=== PATIENT | male | born 1940 | race Caucasian/White ===

== ENCOUNTER → 2020-02-07 13:22 | Outpatient (BNVA) | payer MEDICARE, SELFPAY | PROVIDERS: PCP Internal Medicine; Referring Provider Internal Medicine; Visit Provider Hospitalist | DX: J92.0 Pleural plaque with presence of asbestos (principal); R91.8 Other nonspecific abnormal finding of lung field; G47.33 Obstructive sleep apnea (adult) (pediatric) | CPT/HCPCS: 99214 ==

== ENCOUNTER 2020-02-09 12:39 | Outpatient (REF) | payer MEDICARE, SELFPAY | END 2020-02-09 12:40 | disposition home or self-care (01) | LOC: HO.LAB 12:39 | PROVIDERS: Visit Provider Internal Medicine | DX: Z20.828 Contact with and (suspected) exposure to other viral communicable diseases (principal) | CPT/HCPCS: 87635 ==

== ENCOUNTER 2020-04-18 08:21 | Outpatient (REF) | payer MEDICARE, SELFPAY ==
--- NOTE | 2020-04-18 08:24 | CT_ITS ---
EXAMINATION: CT CHEST WITHOUT CONTRAST CLINICAL INFORMATION: Followup pulmonary nodules. COMPARISON: CT chest 04/20/2019 TECHNIQUE: Multidetector volumetric CT imaging of the chest was done. Axial MIP volume rendering provided. Sagittal and coronal reformatted images were obtained. This CT examination was performed using dose optimization techniques as appropriate, variously including the following: *Automated exposure control *Adjustment of mA and/or kV according to patient size (this includes techniques or standardized protocols for targeted exams where dose is matched to indication/reason for exam; i.e. extremities or head) *Use of iterative reconstruction technique DLP: 159 mGy-cm FINDINGS: [employer] WORKER: The lungs are well expanded. LUNGS: There are multiple bilateral pulmonary nodules most prominent in the right upper lobe. The largest nodule in the right upper lobe measures 2.5 mm on axial image 76/9, pleural-based 3 mm nodule right upper lobe posteriorly on axial image 134/9, 5 mm nodule right middle lobe adjacent to the major fissure likely lymph node on axial image 326/9. There are other 2 mm nodules that are stable. There is a dense right basilar band-like atelectasis. MEDIASTINUM: The thyroid lobes are symmetrical. The central trachea and the bronchi are widely patent. The heart size is normal. The ascending aorta measures 4.2 x 4.4 cm. There are coronary artery calcifications. There is no pericardial effusion seen. Small shotty lymph nodes are seen in the mediastinum with the largest short axis lymph node measuring 8 mm. PLEURA: There is a right diaphragmatic pleural calcification. In addition, there is mild pleural thickening left upper lung. AXILLA: No lymphadenopathy. UPPER ABDOMEN: The visualized liver, spleen, pancreas, and adrenal glands are unremarkable. There is diffuse mural thickening involving the GE junction. OSSEOUS STRUCTURES: There is a bony abnormality involving the right 7th anterolateral rib, question old fracture. There is moderate ventral spondylosis throughout dorsal spine. CT/CT chest wo con IMPRESSION: Stable multiple pulmonary nodules. Stable calcified and noncalcified pleural plaques. Borderline aneurysmal ascending aorta with measurements shown above. Coronary artery calcifications are present.
== END 2020-04-18 08:22 | disposition home or self-care (01) ==
LOC: HO.CT 08:21
PROVIDERS: Visit Provider Hospitalist
DX: R91.8 Other nonspecific abnormal finding of lung field (principal)
CPT/HCPCS: 71250

== ENCOUNTER → 2020-06-08 13:18 | Outpatient (BNVA) | payer MEDICARE, SELFPAY | PROVIDERS: PCP Internal Medicine; Visit Provider Hospitalist | DX: G47.33 Obstructive sleep apnea (adult) (pediatric) (principal); R91.8 Other nonspecific abnormal finding of lung field; J92.0 Pleural plaque with presence of asbestos | CPT/HCPCS: 99212 ==

== ENCOUNTER → 2020-07-04 13:01 | Outpatient (BNVA) | payer MEDICARE, SELFPAY | PROVIDERS: PCP Internal Medicine; Visit Provider Surgery Vascular Surgery | DX: I73.9 Peripheral vascular disease, unspecified (principal) | CPT/HCPCS: 99212 ==

== ENCOUNTER 2021-01-04 08:47 | Outpatient (REF) | payer MEDICARE, SELFPAY | END 2021-01-04 08:48 | disposition home or self-care (01) | LOC: HO.LAB 08:47 | PROVIDERS: PCP Internal Medicine; Visit Provider Internal Medicine | DX: Z20.822 Contact with and (suspected) exposure to COVID-19 (principal) | CPT/HCPCS: C9803; U0003; U0005 ==

== ENCOUNTER 2021-01-11 08:15 | Outpatient (REF) | payer MEDICARE, SELFPAY | END 2021-01-11 08:16 | disposition home or self-care (01) | LOC: HO.LAB 08:15 | PROVIDERS: PCP Internal Medicine; Visit Provider Internal Medicine | DX: Z20.822 Contact with and (suspected) exposure to COVID-19 (principal) | CPT/HCPCS: C9803; U0003; U0005 ==

== ENCOUNTER 2021-01-16 10:17 | Outpatient (REF) | payer MEDICARE, SELFPAY | END 2021-01-16 10:18 | disposition home or self-care (01) | LOC: HO.LAB 10:17 | PROVIDERS: PCP Internal Medicine; Visit Provider Internal Medicine | DX: Z20.822 Contact with and (suspected) exposure to COVID-19 (principal) | CPT/HCPCS: C9803; U0003; U0005 ==

== ENCOUNTER 2021-01-26 08:18 | Outpatient (REF) | payer MEDICARE, SELFPAY ==
[2021-01-26 08:39] LABS: COVID-19 Test Positive (Negative)
== END 2021-01-26 08:19 | disposition home or self-care (01) ==
LOC: HO.LAB 08:18
PROVIDERS: PCP Internal Medicine; Visit Provider Internal Medicine
DX: Z20.822 Contact with and (suspected) exposure to COVID-19 (principal)
CPT/HCPCS: 36415; 87635; C9803

== ENCOUNTER 2021-02-26 08:20 | Outpatient (REF) | payer MEDICARE, SELFPAY ==
[2021-02-26 08:44] LABS: COVID-19 Test Negative (Negative)
== END 2021-02-26 08:21 | disposition home or self-care (01) ==
LOC: HO.LAB 08:20
PROVIDERS: PCP Internal Medicine; Visit Provider Internal Medicine
DX: Z20.822 Contact with and (suspected) exposure to COVID-19 (principal)
CPT/HCPCS: 36415; 87635; C9803

== ENCOUNTER → 2021-04-27 13:53 | Outpatient (BNVA) | payer MEDICARE, SELFPAY | PROVIDERS: PCP Internal Medicine; Visit Provider Hospitalist | DX: G47.33 Obstructive sleep apnea (adult) (pediatric) (principal); R91.8 Other nonspecific abnormal finding of lung field; J92.0 Pleural plaque with presence of asbestos; I71.2 Thoracic aortic aneurysm, without rupture | CPT/HCPCS: 99212 ==

== ENCOUNTER 2021-07-17 10:29 | Outpatient (REF) | payer MEDICARE, SELFPAY ==
--- NOTE | ~2021-07-17 | US_ITS ---
EXAMINATION: US NONINVASIVE ASSESSMENT OF THE ARTERIES OF BOTH LOWER EXTREMITIES WITH PVR EXAM AND BILATERAL LOWER EXTREMITY DUPLEX CLINICAL INFORMATION: Peripheral vascular disease. Left lower extremity bypass graft. TECHNIQUE: Ankle pulse volume recordings, ankle pressure measurements and ankle brachial indices were obtained of the lower extremity arterial system bilaterally. Additionally, duplex Doppler techniques were used with wave form analysis and measurement of velocities in the common femoral, profunda femoral, superficial femoral, popliteal and tibial arteries. The study was performed only at rest. COMPARISON: 02/09/2019. FINDINGS: ANKLE-BRACHIAL INDEX: Right: 1.18 Left: 1.18 PVR WAVEFORM: Right: normal. Left: normal. DIRECT DUPLEX DOPPLER FINDINGS: RIGHT LEG: Common femoral artery: 108 cm/s, diastolic flow reversal: Yes. Profunda femoris artery: 53.4 cm/s, diastolic flow reversal: Yes. Superficial femoral artery (proximal): 84.1 cm/s, diastolic flow reversal: Yes. Superficial femoral artery (mid): 70.4 cm/s, diastolic flow reversal: Yes. Superficial femoral artery (distal): 85.0 cm/s, diastolic flow reversal: Yes. Popliteal artery: 52.8 cm/s, diastolic flow reversal: Yes. Posterior tibial artery: 61.0 cm/s, diastolic flow reversal: Yes. Peroneal artery: 54.5 cm/s, diastolic flow reversal: Yes. LEFT LEG: Common femoral artery: 104 cm/s, diastolic flow reversal: Yes. Profunda femoris artery: 53.4 cm/s, diastolic flow reversal: Yes. Superficial femoral artery (proximal): 62.7 cm/s, diastolic flow reversal: Yes. Superficial femoral artery (mid): Focally occluded. Bypass: Inflow artery: 45.1 cm/s, multiphasic flow Proximal anastomosis: 96.6 cm/s, multiphasic flow Proximal graft: 151 cm/s, multiphasic flow Mid graft: 116 cm/s, multiphasic flow Distal graft: 154 cm/s, multiphasic flow Distal anastomosis: 123 cm/s, multiphasic flow Outflow (posterior tibial) artery: 90.4 cm/s, multiphasic flow Popliteal artery: Occluded. Posterior tibial artery: 75 cm/s, diastolic flow reversal: Yes. Peroneal artery: 90.4 cm/s, diastolic flow reversal: Yes. US/US arterial duplex LE IMPRESSION: Right leg: COURTNEY 1.18. No hemodynamically significant arterial disease. Left leg: COURTNEY 1.18. Left lower extremity duplex reveals a patent left femorotibial bypass graft. No hemodynamically significant lesions identified. COURTNEY Reference: - >0.97-1.25 = normal - no significant arterial disease. - 0.75-0.96 = mild peripheral arterial disease. - 0.5-0.74 = moderate peripheral arterial disease. - <0.50 = severe peripheral arterial disease.
== END 2021-07-17 10:30 | disposition home or self-care (01) ==
LOC: HO.US 10:29
PROVIDERS: PCP Internal Medicine; Visit Provider Surgery Vascular Surgery
DX: I73.9 Peripheral vascular disease, unspecified (principal)
CPT/HCPCS: 93923; 93925

== ENCOUNTER → 2021-07-24 14:51 | Outpatient (BNVA) | payer MEDICARE, SELFPAY | PROVIDERS: PCP Internal Medicine; Visit Provider Surgery Vascular Surgery | DX: I73.9 Peripheral vascular disease, unspecified (principal) | CPT/HCPCS: 99212 ==

== ENCOUNTER → 2022-05-01 09:40 | Outpatient (BNVA) | payer MEDICARE, SELFPAY | PROVIDERS: PCP Internal Medicine; Visit Provider Hospitalist | DX: R91.8 Other nonspecific abnormal finding of lung field (principal); J92.0 Pleural plaque with presence of asbestos; I71.21 Aneurysm of the ascending aorta, without rupture; G47.33 Obstructive sleep apnea (adult) (pediatric) | CPT/HCPCS: 99212 ==

== ENCOUNTER 2022-06-07 10:04 | Outpatient (REF) | payer MEDICARE, SELFPAY | END 2022-06-07 10:05 | disposition home or self-care (01) | LOC: HO.SH 10:04 | PROVIDERS: Visit Provider Internal Medicine | DX: Z01.118 Encounter for examination of ears and hearing with other abnormal findings (principal); H90.3 Sensorineural hearing loss, bilateral | CPT/HCPCS: 92557 ==

== ENCOUNTER 2022-07-25 13:50 | Outpatient (REF) | payer MEDICARE, SELFPAY ==
--- NOTE | ~2022-07-25 | US_ITS ---
EXAMINATION: US NONINVASIVE ASSESSMENT OF THE ARTERIES OF BOTH LOWER EXTREMITIES INCLUDING PVR EXAM AND BILATERAL LOWER EXTREMITY DUPLEX. CLINICAL INFORMATION: Peripheral vascular disease COMPARISON: ABIs/duplex 07/17/2021 TECHNIQUE: Ankle pulse volume recordings, ankle pressure measurements and ankle brachial indices were obtained of the lower extremity arterial system bilaterally in addition to duplex Doppler techniques with wave form analysis and measurement of velocities in the common femoral, profunda femoral, superficial femoral, popliteal, tibial and peroneal arteries. The study was performed only at rest. FINDINGS: RIGHT LE. THE RIGHT ANKLE-BRACHIAL INDEX IS: 1.27 >0.97-1.25 = normal - no significant arterial disease 0.75-0.96 = mild peripheral arterial disease 0.5-0.74 = moderate peripheral arterial disease <0.50 = severe peripheral arterial disease <0.30 = critical arterial disease 2. SEGMENTAL PRESSURES (mmHg): Ankle: PT 166, DP 162 3. PVR WAVEFORMS: Ankle: Normal 4. DIRECT DUPLEX: Common femoral artery: 105 cm/s, Multiphasic Profunda femoris artery: 76 cm/s, Multiphasic Superficial femoral artery (proximal): 82 cm/s, Multiphasic Superficial femoral artery (mid): 72 cm/s, Multiphasic Superficial femoral artery (distal): 64 cm/s, Multiphasic Proximal Popliteal artery: 45 cm/s, Multiphasic Mid posterior tibial artery: 124 cm/s, Multiphasic LEFT LE. THE LEFT ANKLE-BRACHIAL INDEX IS: 1.19 >0.97-1.25 = normal - no significant arterial disease 0.75-0.96 = mild peripheral arterial disease 0.5-0.74 = moderate peripheral arterial disease <0.50 = severe peripheral arterial disease <0.30 = critical arterial disease 2. SEGMENTAL PRESSURES: Ankle: PT 156, DP 148 3. PVR WAVEFORMS: Ankle: Normal 4. DIRECT DUPLEX: Common femoral artery: 95 cm/s, biphasic Profunda femoris artery: 65 cm/s, biphasic Superficial femoral artery (proximal): 46 cm/s, biphasic Superficial femoral artery (mid): 88 cm/s, biphasic Distal SFA to posterior tibial bypass graft: Patent Mid posterior tibial artery: 76 cm/s, biphasic US/US arterial duplex LE BI IMPRESSION: Right leg COURTNEY 1.27. No hemodynamically significant stenosis. Left leg COURTNEY 1.19: No hemodynamically significant stenosis. Left femorotibial bypass graft is patent without hemodynamically significant stenosis.
--- NOTE | ~2022-07-25 | US_ITS ---
EXAMINATION: US NONINVASIVE ASSESSMENT OF THE ARTERIES OF BOTH LOWER EXTREMITIES INCLUDING PVR EXAM AND BILATERAL LOWER EXTREMITY DUPLEX. CLINICAL INFORMATION: Peripheral vascular disease COMPARISON: ABIs/duplex 07/17/2021 TECHNIQUE: Ankle pulse volume recordings, ankle pressure measurements and ankle brachial indices were obtained of the lower extremity arterial system bilaterally in addition to duplex Doppler techniques with wave form analysis and measurement of velocities in the common femoral, profunda femoral, superficial femoral, popliteal, tibial and peroneal arteries. The study was performed only at rest. FINDINGS: RIGHT LE. THE RIGHT ANKLE-BRACHIAL INDEX IS: 1.27 >0.97-1.25 = normal - no significant arterial disease 0.75-0.96 = mild peripheral arterial disease 0.5-0.74 = moderate peripheral arterial disease <0.50 = severe peripheral arterial disease <0.30 = critical arterial disease 2. SEGMENTAL PRESSURES (mmHg): Ankle: PT 166, DP 162 3. PVR WAVEFORMS: Ankle: Normal 4. DIRECT DUPLEX: Common femoral artery: 105 cm/s, Multiphasic Profunda femoris artery: 76 cm/s, Multiphasic Superficial femoral artery (proximal): 82 cm/s, Multiphasic Superficial femoral artery (mid): 72 cm/s, Multiphasic Superficial femoral artery (distal): 64 cm/s, Multiphasic Proximal Popliteal artery: 45 cm/s, Multiphasic Mid posterior tibial artery: 124 cm/s, Multiphasic LEFT LE. THE LEFT ANKLE-BRACHIAL INDEX IS: 1.19 >0.97-1.25 = normal - no significant arterial disease 0.75-0.96 = mild peripheral arterial disease 0.5-0.74 = moderate peripheral arterial disease <0.50 = severe peripheral arterial disease <0.30 = critical arterial disease 2. SEGMENTAL PRESSURES: Ankle: PT 156, DP 148 3. PVR WAVEFORMS: Ankle: Normal 4. DIRECT DUPLEX: Common femoral artery: 95 cm/s, biphasic Profunda femoris artery: 65 cm/s, biphasic Superficial femoral artery (proximal): 46 cm/s, biphasic Superficial femoral artery (mid): 88 cm/s, biphasic Distal SFA to posterior tibial bypass graft: Patent Mid posterior tibial artery: 76 cm/s, biphasic US/US COURTNEY complete IMPRESSION: Right leg COURTNEY 1.27. No hemodynamically significant stenosis. Left leg COURTNEY 1.19: No hemodynamically significant stenosis. Left femorotibial bypass graft is patent without hemodynamically significant stenosis.
== END 2022-07-25 13:51 | disposition home or self-care (01) ==
LOC: HO.US 13:50
PROVIDERS: PCP Internal Medicine; Visit Provider Surgery Vascular Surgery
DX: I70.213 Atherosclerosis of native arteries of extremities with intermittent claudication, bilateral legs (principal)
CPT/HCPCS: 93923; 93925

== ENCOUNTER → 2022-08-01 09:02 | Outpatient (BNVA) | payer MEDICARE, SELFPAY | PROVIDERS: PCP Internal Medicine; Visit Provider Surgery Vascular Surgery | DX: I73.9 Peripheral vascular disease, unspecified (principal) | CPT/HCPCS: 99212 ==

== ENCOUNTER 2023-01-03 16:21 | Outpatient (REF) | payer MEDICARE, SELFPAY ==
--- NOTE | ~2023-01-03 | CT_ITS ---
EXAMINATION: CT CHEST WITHOUT CONTRAST CLINICAL INFORMATION: Other nonspecific abnormal finding of lung field. Aortic ectasia, unspecified site. COMPARISON: CT chest 04/18/2020. TECHNIQUE: Multidetector volumetric CT imaging of the chest was done. Axial MIP volume rendering provided. Sagittal and coronal reformatted images were obtained. This CT examination was performed using dose optimization techniques as appropriate, variously including the following: *Automated exposure control *Adjustment of mA and/or kV according to patient size (this includes techniques or standardized protocols for targeted exams where dose is matched to indication/reason for exam; i.e. extremities or head) *Use of iterative reconstruction technique DLP: 134 mGy-cm FINDINGS: LUNGS: Mild centrilobular emphysema. Scattered pulmonary micronodules and subpleural angular nodules measuring less than 6 mm are stable. No new or suspiciously enlarging nodule. Mild airway wall thickening and cylindrical bronchiectasis. Scarring in the right lower lobe. MEDIASTINUM: Ascending aortic aneurysm measures 4.6 x 4.4 cm, previously measuring 4.5 x 4.4 cm. No adenopathy. No pericardial effusion. CORONARY ARTERY CALCIFICATION: LAD, LCx, RCA calcium. PLEURA: There are stable calcified and noncalcified pleural plaques. AXILLA: No lymphadenopathy. UPPER ABDOMEN: Unremarkable. OSSEOUS STRUCTURES: Degenerative changes in the spine. CT/CT chest wo IV con IMPRESSION: Centrilobular emphysema and chronic airways disease. Stable pulmonary micronodules and subpleural angular nodules measuring less than 6 mm consistent with intraparenchymal lymph nodes. No follow-up is recommended as per Fleischner Society guidelines. Stable ascending aortic aneurysm measuring 4.6 x 4.4 cm. Coronary artery calcium. Fleischner guidelines were followed.
== END 2023-01-03 16:22 | disposition home or self-care (01) ==
LOC: HO.CT 16:21
PROVIDERS: PCP Internal Medicine; Visit Provider Internal Medicine Cardiovascular Disease
DX: R91.8 Other nonspecific abnormal finding of lung field (principal); I77.819 Aortic ectasia, unspecified site
CPT/HCPCS: 71250

== ENCOUNTER 2023-04-22 09:45 | Outpatient (AMB) | payer MEDICARE, SELFPAY ==
[2023-04-22 09:53] VITALS: BP 128/70; PULSE 72; O2SAT 99; BMI 23.6
--- NOTE | 2023-04-22 09:53 | A.OFFVIS_ITS ---
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 He also has underlying obstructive sleep apnea. He did have a CT scan of the chest done April of this year. I personally reviewed the CT scan with him. His pulmonary nodules very small and stable. 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 He did not use any mask or any protection while he was working with the asbestos unfortunately. He does have the pulmonary nodules in the upper to be relatively stable. They will continue to monitor. In regards to sleep apnea the patient did have a sleep study in the past and does have sleep apnea. He did he have a CPAP but he stopped using about 2 years ago. In addition to that he CT scan of the chest will be scheduled for April of 2020 to follow up as pulmonary nodules. He does follow up with thoracic surgery as well. 06/08/2020 patient is here for pulmonary follow-up visit. The patient overall is doing well. He continues to have some shortness of breath with activity but minimal in nature. No significant cough. He denies any chest pains. He did have a CT scan of the chest back in April 2020 demonstrating stable pleural plaques consistent with his exposure to asbestos and also stable pulmonary nodules which is reassuring. In the meantime again we talked about his underlying obstructive sleep apnea. He had minimal disease back when he had a sleep study back in the fall 2019. At this point he would like to hold off on CPAP at this time. The patient did not have any significant drowsiness the morning. He appears to be sleeping well. Therefore, will reassess during the next visit in the fall patient may need to have a repeat sleep study then if he feels that he is having any worsening daytime drowsiness. In regards of his underlying pulmonary nodules in asbestos related lung disease, will plan to follow-up with a CT scan of the chest in 1 year. 04/27/2021 the patient is here for a pulmonary follow-up visit. Overall the patient has been doing well. Has minimal cough. Does have some shortness of breath that is mild in severity. He also complains of intermittent chest discomfort. Currently he does not have any. We did review her CT scan of the chest that he had recently. It appears that he does have the asbestos related lung disease with lung plaques. In addition to that he has pulmonary nodules. That has not changed which is reassuring. More significantly is that he has a 4.4 centimeter ascending aortic aneurysm. This has not changed either which is reassuring. That being said he needs to follow up closely with his primary care doctor. We did talk about the importance of controlling his blood pressure and heart rate he does take medication for that. Otherwise will follow-up in [address] scan. 05/01/2022 the patient is here for pulmon angela follow-up visit. The patient is doing well from a respiratory status. Denies any significant cough or shortness of breath. Sometimes he does complaint of bilateral back discomfort primarily in the lower to mid back area. Denies any pleuritic discomfort. He does not feel a right now. Usually moderate severity. He did have a recent CT scan of the chest that we personally discussed in the office. It appears that his p ulmonary nodules are stable. In addition to that he has asbestos related lung disease that does not appear to be getting worse. He does have some changes to his back in I did give him information about that as that may be the cause of the back pain. She is going to follow up with primary care doctor for that. Otherwise will follow-up 1 more year for residual CT scans in view of his pulmonary nodules and is high risk for cancer with the asbestos related lung disease. If the nodules are stable in another year's time. 04/22/2023 the patient is here for pulmona ry follow-up visit. Overall the patient has been doing fairly well still complaining of that back discomfort. She also gets more internal. Although does not appear to be pleuritic in nature. Exacerbated by snow shoveling. Denies any rashes in the area. We did review his CT scan of the chest that he had back in March 2023 at [facility]. It appears that he does have asbestos plaques although does unlikely causing discomfort. The did not appear to be changing either. Pulmonary nodules are stable. He does have a 4.6 cm fusiform ascending aortic aneurysm that has been well documented demonstrating stability. Still, he should have somebody following that and I will make sure to send the information over to his vascular surgeon and also make it clear in order for him to also follow-up with Primary Care Cardiology P for now although no evidence of any changes in his CT scans which is reassuring. Because of the ongoing back pain will go ahead and treat him with anti-inflammatory medications for 5-10 days. Will follow-up in 6 months. [facility] Medical History Asbestos-induced pleural plaque Ascending aortic aneurysm GILLIAN (obstructive sleep apnea) Pulmonary nodules Surgical History Cataract of left eye Hx of colonoscopy Family History Father No problems noted. Social History Patient Tobacco Use Status: Never used Tobacco Review of Systems Const Denies daytime sleepiness, Denies night sweats and Denies stops breathing during sleep ENT Denies change in voice, Denies lip swelling, Denies mouth pain, Reports nasal congestion, Reports nasal discharge and Denies tongue swelling Card Reports chest pain and Reports dyspnea on exertion Resp Reports cough and Reports dyspnea on exertion GI Denies abdominal pain Musc Denies no additional complaints Neuro Denies Neuro-related abnormal movements Psych Denies no additional complaints Timothy/Lymph Denies easy bleeding and Denies lymphadenopathy Aller/Immun Denies lip swelling and Denies tongue swelling Physical Exam Vital Signs: Last Vital Signs Pulse 72 04/22/23 09:53 BP 128/70 04/22/23 09:53 Pulse Ox 99 04/22/23 09:53 Oxygen Delivery Method Room Air 04/22/23 09:53 BMI result Body Mass Index 23.6 Const General: alert HEENT General nose exam: Abnormal external nose present and Nasal discharge present Neck Neck: Yes normal visual inspection, Yes full ROM and Yes no lymphadenopathy Chest Chest palpation & inspection: normal inspection of the chest Resp Effort & Inspection: normal respiratory effort Auscultation: clear to auscultation bilaterally Cardio Rate: regular rate Rhythm: regular rhythm Heart sounds: S1 normal heart sound present and S2 normal heart sound present GI Palpation (GI): Soft to palpation and nontender Auscultation: normal bowel sounds Back/Spine/Pelvis Back: back tenderness Extrem General: Yes no clubbing, cyanosis or edema Results Reviewed Results Reviewed: [address] [address] [address] Scan Report Signed Patient: Chuck Capellan Jr MR#: [id number] : 1940 Acct:[id number] Age/Sex: 82 / M ADM Date: 01/03/23 Loc: HO.CT Attending Dr: Adrián Prince MD Ordering Physician: Speedy Finnegan MD Date of Service: 01/03/23 Procedure(s): CT chest wo IV con Accession Number(s): [id number] cc: Kathleen Casarez MD; Speedy Finnegan MD~ EXAMINATION: CT CHEST WITHOUT CONTRAST CLINICAL INFORMATION: Other nonspecific abnormal finding of lung field. Aortic ectasia, unspecified site. COMPARISON: CT chest 04/18/2020. TECHNIQUE: Multidetector volumetric CT imaging of the chest was done. Axial MIP volume rendering provided. Sagittal and coronal reformatted images were obtained. This CT examination was performed using dose optimization techniques as appropriate, variously including the following: *Automated exposure control *Adjustment of mA and/or kV according to patient size (this includes techniques or standardized protocols for targeted exams where dose is matched to indication/reason for exam; i.e. extremities or head) *Use of iterative reconstruction technique DLP: 134 mGy-cm FINDINGS: LUNGS: Mild centrilobular emphysema. Scattered pulmonary micronodules and subpleural angular nodules measuring less than 6 mm are stable. No new or suspiciously enlarging nodule. Mild airway wall thickening and cylindrical bronchiectasis. Scarring in the right lower lobe. MEDIASTINUM: Ascending aortic aneurysm measures 4.6 x 4.4 cm, previously measuring 4.5 x 4.4 cm. No adenopathy. No pericardial effusion. CORONARY ARTERY CALCIFICATION: LAD, LCx, RCA calcium. PLEURA: There are stable calcified and noncalcified pleural plaques. AXILLA: No lymphadenopathy. UPPER ABDOMEN: Unremarkable. OSSEOUS STRUCTURES: Degenerative changes in the spine. CT/CT chest wo IV con IMPRESSION: Centrilobular emphysema and chronic airways disease. Stable pulmonary micronodules and subpleural angular nodules measuring less than 6 mm consistent with intraparenchymal lymph nodes. No follow-up is recommended as per Fleischner Society guidelines. Stable ascending aortic aneurysm measuring 4.6 x 4.4 cm. Coronary artery calcium. Fleischner guidelines were followed. Dictated By: Osmar Musa MD Signed By: <Electronically signed by Osmar Musa MD in OV> 01/08/23 0924 DD/ [id number] TD/TT: Rip Tailer: HAMZAH Assessment & Plan Assessment & Plan (1) GILLIAN (obstructive sleep apnea): Code(s): G47.33 - Obstructive sleep apnea (adult) (pediatric) (2) Pulmonary nodules: Code(s): R91.8 - Other nonspecific abnormal finding of lung field (3) Asbestos-induced pleural plaque: Code(s): J92.0 - Pleural plaque with presence of asbestos (4) Ascending aortic aneurysm: Code(s): I71.2 - Thoracic aortic aneurysm, without rupture Qualifiers: Presence of rupture: without rupture Qualified Code(s): I71.21 - Aneurysm of the ascending aorta, without rupture Plan CT chest 1 yr F/U with PCP or cardiology for aortic aneurysm 4.6cm start low dose prednisone taper for back pain/thorac discomfort F/U 1 yr Orders: Orders CT chest wo IV con 364 Days R91.8 - Other nonspecific abnormal finding of lung field Medications: New prednisone PO daily; Take 2 tabs daily x 5 days, then 1 tabs x days 10 days 15 tabs 0RF prednisone PO daily; Take 2 tabs daily x 5 days, then 1 tabs x days 15 tabs 0RF 10 days Coding Level of Care Code Est Pt Level 4 (83052) Diagnoses GILLIAN (obstructive sleep apnea) G47.33 Pulmonary nodules R91.8 Asbestos-induced pleural plaque J92.0 Aneurysm of ascending aorta without rupture I71.21 Presence of rupture: without rupture Time Spent (min) 17
== END 2023-04-22 10:19 | disposition home or self-care (01) ==
PROVIDERS: PCP Internal Medicine; Visit Provider Hospitalist
DX: G47.33 Obstructive sleep apnea (adult) (pediatric) (principal); R91.8 Other nonspecific abnormal finding of lung field; J92.0 Pleural plaque with presence of asbestos; I71.21 Aneurysm of the ascending aorta, without rupture
CPT/HCPCS: 99214

== ENCOUNTER → 2023-04-22 09:45 | Outpatient (BNVA) | payer MEDICARE, SELFPAY | PROVIDERS: PCP Internal Medicine; Visit Provider Hospitalist | DX: R91.8 Other nonspecific abnormal finding of lung field (principal); G47.33 Obstructive sleep apnea (adult) (pediatric); J92.0 Pleural plaque with presence of asbestos; I71.21 Aneurysm of the ascending aorta, without rupture | CPT/HCPCS: 99212 ==

== ENCOUNTER 2023-07-22 09:33 | Outpatient (REF) | payer MEDICARE, SELFPAY ==
--- NOTE | ~2023-07-22 | US_ITS ---
EXAMINATION: NONINVASIVE ASSESSMENT OF THE ARTERIES OF BOTH LOWER EXTREMITIES INCLUDING PVR EXAM AND BILATERAL LOWER EXTREMITY DUPLEX CLINICAL INFORMATION: Vascular disease, unspecified COMPARISON: Ultrasound 07/25/2022 TECHNIQUE: Ankle pulse volume recordings, ankle pressure measurements and ankle brachial indices were obtained of the lower extremity arterial system bilaterally in addition to duplex Doppler techniques with wave form analysis and measurement of velocities in the common femoral, profunda femoral, superficial femoral, popliteal, tibial and peroneal arteries. The study was performed only at rest. FINDINGS: RIGHT LEG 1. Right Ankle-Brachial Index: 1.21 (higher of the DP/PT) >0.97-1.25 = normal - no significant arterial disease 0.75-0.96 = mild peripheral arterial disease 0.5-0.74 = moderate peripheral arterial disease <0.50 = severe peripheral arterial disease <0.30 = critical arterial disease 2. Segmental Pressures (mmHg): Brachial: 138 Ankle: PT 167, DP 160 3. PVR Waveforms: Ankle: Normal 4. Direct Duplex: Common femoral artery: 109 cm/s, Multiphasic Profunda femoris artery: 46.6 cm/s, Multiphasic Superficial femoral artery (proximal): 57.5 cm/s, Multiphasic Superficial femoral artery (mid): 68.3 cm/s, Multiphasic Superficial femoral artery (distal): 75.2 cm/s, Multiphasic Proximal Popliteal artery: 44.7 cm/s, Multiphasic Distal popliteal artery: 35.5 cm/s, Multiphasic Mid posterior tibial artery: 66.7 cm/s, Multiphasic Peroneal artery: 44.7 cm/s, Multiphasic Anterior tibial artery: 54.5 cm/s, multiphasic LEFT LE. Left Ankle-Brachial Index: 1.2 (higher of the DP/PT) >0.97-1.25 = normal - no significant arterial disease 0.75-0.96 = mild peripheral arterial disease 0.5-0.74 = moderate peripheral arterial disease <0.50 = severe peripheral arterial disease <0.30 = critical arterial disease 2. Segmental Pressures: Brachial: 132 Ankle: PT 165, DP 160 3. PVR Waveforms: Ankle: Normal 4. Direct Duplex: Common femoral artery: 109 cm/s, Multiphasic Profunda femoris artery: 58.4 cm/s, Multiphasic Superficial femoral artery (proximal): 49 cm/s, Multiphasic Superficial femoral artery (mid): 63.9 cm/s, Multiphasic Superficial femoral artery (distal): 39.6 cm/s, Multiphasic There is a distal SFA to tibial peroneal bypass. Waveforms are multiphasic along its length. At the anastomosis peak systolic velocity is 49 cm/s. At the proximal aspect of the graft peak systolic velocity is 91.9 cm/s, midportion is 137 cm/s, distal portion is 251 cm/s. At the distal anastomosis the peak systolic velocity is 133 cm/s. Popliteal artery: Occluded Mid posterior tibial artery: 51.3 cm/s, Multiphasic Peroneal artery: 32.9 cm/s, Multiphasic Anterior tibial artery: 61.1 cm/s, multiphasic Right leg COURTNEY 1.21. Multiphasic flow throughout the lower extremity without evidence of hemodynamically significant stenosis. Left leg COURTNEY 1.2. There is a patent distal superficial femoral to tibioperoneal bypass. Remaining vessels are patent other than the popliteal artery.
--- NOTE | ~2023-07-22 | CT_ITS ---
EXAMINATION: CT ANGIOGRAM CHEST CLINICAL INFORMATION: Nonrheumatic aortic insufficiency COMPARISON: CT chest 12/14/2022 TECHNIQUE: Multiple axial images were obtained through the chest after the administration of 70 mL of intravenous Omnipaque. Images were evaluated on independent dedicated 3-D workstation and 3-D images were reconstructed with concurrent radiologist supervision and subsequently interpreted. This CT examination was performed using dose optimization techniques as appropriate, variously including the following: *Automated exposure control. *Adjustment of mA and/or kV according to patient size (this includes techniques or standardized protocols for targeted exams where dose is matched to indication/reason for exam, i.e., extremities or head). *Use of iterative reconstruction technique. DLP: 129 mGy-cm. FINDINGS: VASCULAR: Thoracic Aorta: The ascending aorta measures 4.3 x 4.3 cm. The aortic arch is normal in caliber. The descending thoracic aorta is normal in caliber. Subclavian Arteries: Patent and normal in caliber. Carotid and Vertebral Arteries: Patent and normal in caliber. Abdominal Aorta: Normal in caliber. The visualized mesenteric vessels are patent and normal in caliber. Pulmonary arteries: Patent, normal caliber without evidence of large, central pulmonary embolus All vascular measurements obtained from 3-D reconstructed images are detailed in PACS. NON-VASCULAR: Lungs: Stable sub-6 mm pulmonary nodules. Subsegmental atelectasis in the lung bases. Mediastinum: The mediastinum is normal. Central vascular structures are unremarkable. No hilar or mediastinal lymphadenopathy. Mild coronary artery calcification. Pericardium/Pleura: Partially calcified pleural plaque in the right lung base, unchanged. Chest Wall/Axilla: Unremarkable. Upper Abdomen: Small hiatal hernia. Osseous Structures: Unremarkable. CT/CT angio chest aorta IMPRESSION: 1. The ascending aorta measures 4.3 x 4.3 cm. 2. Unchanged partially calcified pleural plaque.
[2023-07-22] MEDS: iohexoL 350 MG/ML 75 ML INFUS..BTL 70 ML IV (12:42)
[2023-07-22 14:50] LABS: Creatinine POC 0.9 mg/dL (0.5-1.4); GFR POC > 60
== END 2023-07-22 09:34 | disposition home or self-care (01) ==
LOC: HO.CT 09:33
PROVIDERS: PCP Internal Medicine; Visit Provider Internal Medicine Cardiovascular Disease
DX: I35.1 Nonrheumatic aortic (valve) insufficiency (principal); R07.9 Chest pain, unspecified; I10 Essential (primary) hypertension; I73.9 Peripheral vascular disease, unspecified
CPT/HCPCS: 71275; 82565; 93922; 93925; Q9967

== ENCOUNTER 2023-07-29 09:43 | Outpatient (AMB) | payer MEDICARE, SELFPAY ==
--- NOTE | 2023-07-29 09:54 | MHC.OFFVIS ---
Intake Intake Visit Reasons: follow up 07/21 US Intake Note: Patient presents for follow up 07/21 arterial US and CTA of the chest. States his legs feel fine , no complaints. Accompanied by: Self / Same As Patient Allergies No Known Allergies [No Known Allergies*] Allergy (Verified 07/29/23 09:57) HPI follow up 07/21 US HPI Details Very pleasant 82-year-old gentleman presents for follow-up surveillance regarding peripheral vascular disease. At the current time he has no difficulty ambulating. He can walk several blocks with no issues. He is nonsmoker nondiabetic. He now presents for follow-up with noninvasive testing. [facility] Medical History Ascending aortic aneurysm GILLIAN (obstructive sleep apnea) Pulmonary nodules Asbestos-induced pleural plaque Surgical History Cataract of left eye Hx of colonoscopy Family History Father No problems noted. Social History Patient Tobacco Use Status: Never used Tobacco Review of Systems Const All systems reviewed & are unremarkable except as noted in HPI and below Reports no additional complaints ENT Reports Normal hearing present Card Denies chest pain, Denies chest pain at rest, Denies chest pain with activity and Denies pedal edema Resp Denies cough GI Denies abdominal pain Musc Denies abnormal gait, Denies muscle cramps and Denies radiating pain into limb Skin/Breast Denies skin ulcer and Denies wounds Neuro Reports Normal hearing present and Denies abnormal gait Psych Reports no additional complaints Physical Exam Const General: cooperative, healthy appearing and comfortable Orientation/consciousness: oriented to person, oriented to place and oriented to time HEENT Head: Yes normal to inspection Neck Neck: Yes normal visual inspection Carotids: no bruits Chest Chest palpation & inspection: normal inspection of the chest Resp Effort & Inspection: normal respiratory effort and able to speak in complete sentences Auscultation: clear to auscultation bilaterally, no crackles, no rales, no rhonchi and no wheezes Cardio Rate: regular rate Rhythm: regular rhythm Heart sounds: S1 normal heart sound present and S2 normal heart sound present Bruits: no carotid bruits Peripheral pulses: Peripheral pulses 2+ throughout GI Inspection: Yes normal to inspection Skin Wounds: no wounds Hair: normal Neuro General: oriented to person, oriented to place and oriented to time Cranial nerves: Yes CN's II-XII intact bilaterally and Yes Normal hearing present Cognition (Neuro): normal cognition Motor exam (neuro): 5/5 motor strength present throughout Extrem Other: venous exam: No significant superficial varicosities or spider telangiectasias, minimal edema General: No clubbing, No cyanosis and No edema Psych Appearance: grossly normal Mental Status: mental status grossly normal Speech and movement: Normal speech and movement present Results Reviewed Results Reviewed: Noninvasive arterial testing dated 07/22/2023 demonstrates COURTNEY on the right of 1.21 and on the left of 1.2. Bypass is patent. Written report and images were reviewed. Assessment & Plan Assessment & Plan (1) PAD (peripheral artery disease): Comment: Left fem distal bypass performed in nearly 25 years ago at [facility] Code(s): I73.9 - Peripheral vascular disease, unspecified Plan: In short patient has stable claudication. Bypass is patent I did review the pathophysiology of peripheral vascular disease with the patient. In addition we did discuss routine conservative measures including a healthy diet and the importance of exercise and ambulation. We did discuss risk factor modification. The patient will continue to to follow-up with surveillance follow-up in approximately 1 year. Thank you for allowing us to participate in this patient's care. If there are any questions or concerns please do not hesitate to contact us. Orders: Orders US arterial duplex LE BI 1 Year I73.9 - Peripheral vascular disease, unspecified Coding Level of Care Code Est Pt Level 4 (61975) Diagnoses PAD (peripheral artery disease) I73.9
== END 2023-07-29 10:12 | disposition home or self-care (01) ==
PROVIDERS: PCP Internal Medicine; Visit Provider Surgery Vascular Surgery
DX: I73.9 Peripheral vascular disease, unspecified (principal)
CPT/HCPCS: 99213

== ENCOUNTER → 2023-07-29 09:43 | Outpatient (BNVA) | payer MEDICARE, SELFPAY | PROVIDERS: PCP Internal Medicine; Visit Provider Surgery Vascular Surgery | DX: I73.9 Peripheral vascular disease, unspecified (principal) | CPT/HCPCS: 99212 ==

== ENCOUNTER 2023-12-23 09:43 | Emergency (ER) | payer MEDICARE, SELFPAY ==
--- NOTE | ~2023-12-23 | XR_ITS ---
EXAMINATION: XR ABDOMEN KUB CLINICAL INDICATION: Constipation COMPARISON: CT angiogram chest 07/22/2023 TECHNIQUE: AP view of the abdomen. FINDINGS: The bowel gas pattern is normal with no evidence of ileus or obstruction. Moderate stool present in the colon. No unusual soft tissue calcifications are noted. Marked degenerative changes are seen in the spine with milder changes in the hips. Calcified pleural plaque is seen at the right lung base, unchanged from prior. XR/XR KUB IMPRESSION: No evidence of bowel obstruction. Moderate stool in the colon. Electronically signed by: Garcia Gramajo MD 12/23/2023 01:50 PM EDT
[2023-12-23 10:05] VITALS: BP 143/69; PULSE 85; RESP 18; TEMP 36.8; O2SAT 99; BMI 25.1
[2023-12-23 10:41] LABS: MANUAL DIFF FLAG NO
[2023-12-23] MEDS: Acetaminophen 325 MG TABLET 650 MG PO (10:41)
[2023-12-23 10:43] LABS: Basophils Percent Auto 0.3 % (0-2); Eosinophils Absolute Auto 0.1 X10*3/uL (0.0-0.4); Eosinophils Percent Auto 0.6 % (0-4); Hematocrit 40.3 % (42.0-52.0); Hemoglobin 13.4 g/dl (14.0-18.0); Imm Gran Abs Auto 0.03 X10*3/uL (0.00-0.03); Imm Gran Pct Auto 0.3 % (0.0-0.4); Lymphocytes Absolute Auto 1.1 X10*3/uL (1.2-4.9); Mean Corpuscular HGB Conc 33.3 g/dl (31.0-36.0); Mean Corpuscular Hemoglobin 31.5 pg (27.0-33.0); Mean Corpuscular Volume 94.6 fL (80.0-98.0); Mean Platelet Volume 9.7 fL (9.4-12.4); Monocytes Absolute Auto 0.5 X10*3/uL (0.1-1.2); Monocytes Percent Auto 5.6 % (2-11); Neutrophils Absolute Auto 7.3 x10*3/uL (2.0-8.3); Neutrophils Percent Auto 81.2 % (45-73); Platelet Count 212 X10*3/uL (160-400); Red Blood Count 4.26 X10*6/uL (4.60-5.80); Red Cell Distribution Width 12.7 % (11.0-16.0)
[2023-12-23 11:02] LABS: Alanine Aminotransferase 24 U/L (0-40); Alkaline Phosphatase 49 U/L (39-117); Anion Gap 10 (12-20); Aspartate Amino Transferase 28 U/L (5-37); Bilirubin Total 0.5 mg/dL (0.0-1.0); Blood Urea Nitrogen 18 mg/dL (9-16); Calcium 8.8 mg/dL (8.4-10.2); Carbon Dioxide 25 mmol/L (22-29); Chloride 108 mmol/L (96-108); Creatinine Clr Calc Pharmacy 73.3; Estimated Glomerular Filt Rate > 60; Glucose Random 130 mg/dL (60-115); Potassium 4.1 mmol/L (3.3-5.1); Sodium 139 mmol/L (135-145); Total Protein 7.3 g/dL (6.5-8.0)
[2023-12-23 11:07] VITALS: BP 133/60; PULSE 72
--- NOTE | 2023-12-23 11:16 | ED.GENADULT ---
HPI - General Adult General Chief complaint: GI Bleed Stated complaint: Pain Related Data Home Medications ?Medication ?Instructions ?Recorded ?Confirmed flu vacc [id number](65yr up)-PF 240 ml IM 02/07/20 06/08/20 mcg/0.7 mL intramuscular syringe lisinopril 5 mg tablet 5 mg PO DAILY 06/08/20 06/08/20 fluticasone propionate 50 2 spray intranasal DAILY PRN 04/27/21 mcg/actuation nasal spray,suspension lactulose 10 gram/15 mL oral 15 - 30 ml PO BID PRN constipation 04/27/21 solution epinephrine 0.3 mg/0.3 mL 0.3 ml IM ONCE PRN 07/24/21 injection, auto-injector loratadine 10 mg tablet 10 mg PO DAILY 07/24/21 sennosides 8.6 mg-docusate sodium 1 tab PO BID PRN constipation 07/24/21 50 mg tablet (Stimulant Laxative Plus) celecoxib 200 mg capsule 200 mg PO DAILY 05/01/22 Previous Rx's ?Medication ?Instructions ?Recorded prednisone 10 mg tablet See Rx Instructions PO DAILY 10 04/22/23 days #15 tabs Allergies Allergy/AdvReac Type Severity Reaction Status Date / Time No Known Allergies Allergy Verified 12/23/23 10:06 [No Known Allergies*] [facility] Past Medical History Medical History Ascending aortic aneurysm GILLIAN (obstructive sleep apnea) Pulmonary nodules Asbestos-induced pleural plaque Surgical History Cataract of left eye Hx of colonoscopy Family History Family History Father No problems noted. Social History Social History Patient Tobacco Use Status: Never used Tobacco Physical Exam ED Vital Signs: Vital Signs - 24 hr 12/23/23 10:05 12/23/23 11:07 Temperature 98.2 F Pulse Rate 85 72 Respiratory Rate 18 Blood Pressure 143/69 H 133/60 Pulse Oximetry 99 Oxygen Delivery Method Room Air BMI result Body Mass Index 25.1 Course Course Course Narrative: This is an RME done by MONTY Lopez: Additional HPI, ROS, PE not included below will be deferred to primary provider. 83 yo m hx of PAD, ascending aortic aneurysm, gillian, asbestos- induced pleural plaque presenting w/ dizziness s/p straining ( he was constipated) reports slight rectal bleeding sp BM. No falls or trauma. Denies cp, sob, nausea, vomiting. Appearance: Alert.? Oriented X3.? No acute cardiopulmonary distress distress.? Head: Normocephalic, atraumatic, no step-offs or deformities Neck: Normal inspection.? Neck supple.? CVS: Pulses normal.? Respiratory: No respiratory distress.? Skin: ? Normal skin color. Extremities: 5/5 strength to bilateral upper and lower extremities Neuro: Oriented X 3.? No motor deficit.? No sensory deficit. Medications Administered Discontinued Medications Generic Name Dose Route Start Last Admin Trade Name Freq PRN Reason Stop Dose Admin Acetaminophen 650 mg 12/23/23 10:38 12/23/23 10:41 Acetaminophen 325 Mg Tablet PO 12/23/23 10:39 650 mg ONCE ONE Administration Medical Decision Making Lab Data 12/23/23 10:37 12/23/23 10:37 Labs: Lab Results 12/23/23 Range/Units 10:37 WBC 9.0 (4.8-10.8) X10*3/uL RBC 4.26 L (4.60-5.80) X10*6/uL Hgb 13.4 L (14.0-18.0) g/dl Hct 40.3 L (42.0-52.0) % MCV 94.6 (80.0-98.0) fL MCH 31.5 (27.0-33.0) pg MCHC 33.3 (31.0-36.0) g/dl RDW 12.7 (11.0-16.0) % Plt Count 212 (160-400) X10*3/uL MPV 9.7 (9.4-12.4) fL Immature Gran % (Auto) 0.3 (0.0-0.4) % Neut % (Auto) 81.2 H (45-73) % Lymph % (Auto) 12.0 L (20-40) % Owsley % (Auto) 5.6 (2-11) % Eos % (Auto) 0.6 (0-4) % Baso % (Auto) 0.3 (0-2) % Lymph # (Auto) 1.1 L (1.2-4.9) X10*3/uL Owsley # (Auto) 0.5 (0.1-1.2) X10*3/uL Eos # (Auto) 0.1 (0.0-0.4) X10*3/uL Baso # (Auto) 0.0 (0.0-0.2) X10*3/uL Abs Immat Gran (auto) 0.03 (0.00-0.03) X10*3/uL Absolute Neuts (auto) 7.3 (2.0-8.3) x10*3/uL Absolute Nucleated RBC 0.000 (0.0-0.012) X10*3/uL Nucleated RBC % (auto) 0.0 (0.0-0.2) /100WBC Sodium 139 (135-145) mmol/L Potassium 4.1 (3.3-5.1) mmol/L Chloride 108 (96-108) mmol/L Carbon Dioxide 25 (22-29) mmol/L Anion Gap 10 L (12-20) BUN 18 H (9-16) mg/dL Creatinine 0.79 (0.5-1.4) mg/dL Estim Creat Clear Calc 73.3 Estimated GFR > 60 Random Glucose 130 H (60-115) mg/dL Calcium 8.8 (8.4-10.2) mg/dL Total Bilirubin 0.5 (0.0-1.0) mg/dL AST 28 (5-37) U/L ALT 24 (0-40) U/L Alkaline Phosphatase 49 (39-117) U/L Total Protein 7.3 (6.5-8.0) g/dL Albumin 4.0 (3.5-5.0) g/dL Discharge Plan Discharge Clinical Impression: Eloped from emergency department Patient Disposition: Left W/O Completing Treatment Prescriptions: No Action Fluzone HighDose Quad 20-21 PF 240 mcg/0.7 mL syringe IM fluticasone propionate 50 mcg/actuation spray,suspension 2 spray intranasal DAILY PRN lisinopril 5 mg tablet 5 mg PO DAILY lactulose 10 gram/15 mL solution 15 - 30 ml PO BID PRN (Reason: constipation) sennosides-docusate sodium [Stimulant Laxative Plus] 8.6-50 mg tablet 1 tab PO BID PRN (Reason: constipation) loratadine 10 mg tablet 10 mg PO DAILY epinephrine 0.3 mg/0.3 mL auto-injector 0.3 ml IM ONCE PRN celecoxib 200 mg capsule 200 mg PO DAILY prednisone 10 mg tablet See Rx Instructions PO DAILY 10 Days Qty: 15 0RF Rx Instructions: PO daily; Take 2 tabs daily x 5 days, then 1 tabs x days Discharge Date/Time: 12/23/23 16:59
--- NOTE | 2023-12-23 11:34 | PC.NURSE ---
Used bathroom in [facility] at the end of being triaged by nurse Roe. This RN assisted the patient to transfer from toilet to wheelchair and escorted via wheelchair to the waiting room. Awaiting ED room assignment.
--- NOTE | 2023-12-23 13:26 | PC.NURSE ---
aprox 1/2 hr ago patient was assisted in BR. no bleeding noted. just stool.
== END 2023-12-23 16:59 | disposition left against medical advice (07) ==
PROVIDERS: Physician Assistant Medical; Emergency Provider Emergency Medicine
DX: K59.00 Constipation, unspecified (principal); K92.2 Gastrointestinal hemorrhage, unspecified; Z53.21 Procedure and treatment not carried out due to patient leaving prior to being seen by health care provider
CPT/HCPCS: 36415; 74018; 80053; 85025; 99281; 99283

== ENCOUNTER 2024-05-11 12:47 | Outpatient (REF) | payer MEDICARE, SELFPAY ==
--- NOTE | ~2024-05-11 | CT_ITS ---
CLINICAL HISTORY: R91.8 - Other nonspecific abnormal finding of lung field CT chest without contrast Comparison: CT/REG/KS/SR - CT ANGIO CHEST AORTA - 07/22/23 12:[address]/REG/SR - CT CHEST WO IV CON - 01/03/23 16:39 EDT Findings: The heart size is normal. Calcification of the coronary vasculature. The visualized thyroid is within normal limits. No change in mild dilatation of the ascending thoracic aorta measuring 43 mm short axis. Small hiatal hernia. No evidence of pneumonia or edema. No change in 4 mm right middle lobe nodule (image 105). Scarring within the right lung base laterally as before.Bilateral pleural plaques are present as before. The visualized upper abdomen is unremarkable. No acute fractures. IMPRESSION: 1. 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 2. Coronary artery disease. 3. 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 4. Stable, benign right lung nodule. 5. Small hiatal hernia. This document has been electronically signed by: Terri Marsh MD on 05/11/2024 15:57:08
--- OUTSIDE RECORDS SUMMARY | 2024-05-11 13:37 | XMS_ITS | Continuity of Care Document ---
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 ? ? Increase in asthma symptoms If yes, inhaler use: Reaction to last injections: No If yes: ? ? ? Allergy Symptoms: Other: ? ? ? Missed: Dose Aware of Vial Test Notes:? ? ? [email or web address] Not available 04/20/2024 12:09:53 Plan of Treatment Reminders Order Date Submit Date Provider Last Modified By Organization Details Last Modified Time Details Appointments Allergy Shot 2024 09:15A M [facility] Not available Not available Not available Establish ed 15 2024 09:15A M ROBIN JAMA PA-C Not available Not available Not available Lab None recorded. Referral None recorded. Procedures None recorded. Surgeries None recorded. Imaging None recorded. Medication Orders None recorded. Patient TargetsNo targets recorded. Patient InstructionsNo instructions recorded. Reason for Referral None Reported. Problems Name Problem SNOMED Code Status Onset Date Resolution Date Notes Provider Name and Address Organization Details Recorded Time Sensorine ural hearing loss of bilateral ears 290499165 Active 2022 Sensorine ural hearing loss, bilateral ; Note: Date Diagnosed : 3 12:42 PM (H90.3) Not Available [facility] 4 03:22:37 Allergic rhinitis caused by pollen 72867320 Active 2022 Allergic rhinitis due to pollen; Note: Date Diagnosed : 3 12:42 PM (J30.1) Not Available Count includes the [facility] 4 03:22:37 Perennial allergic rhinitis 725298999 Active 2023 [facility], [facility], [facility] [address] [facility],[place] [address], [place], [address] , [facility] 4 15:57:22 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 25843016248 9109 Active 2023 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; Note: Date Diagnosed : 05/16/2023 10:05 AM (J30.81) Not Available Count includes the [facility] 4 03:22:37 Allergic rhinitis 85694703 Active 2023 Allergic rhinitis: Due to other allergen; Note: Date Diagnosed : 08/20/2023 11:29 AM (477.8) Allergi c rhinitis: Due to other allergen; Note: Date Diagnosed : 08/12/2023 9:42 AM (477.8) ; Start Date : 4 Allergi c rhinitis: Due to other allergen; Note: Date Diagnosed : 08/05/2023 11:51 AM (477.8) ; Start Date : 4 Allergi c rhinitis: Due to other allergen; Note: Date Diagnosed : 07/29/2023 11:02 AM (477.8) ; Start Date : 4 Allergi c rhinitis: Due to other allergen; Note: Date Diagnosed : 07/22/2023 1:33 PM (477.8) ; Start Date : 4 Allergi c rhinitis: Due to other allergen; Note: Date Diagnosed : 07/15/2023 9:54 AM (477.8) ; Start Date : 4 Allergi c rhinitis: Due to other allergen; Note: Date Diagnosed : 07/08/2023 10:31 AM (477.8) ; Start Date : 4 Allergi c rhinitis: Due to other allergen; Note: Date Diagnosed : 07/01/2023 2:36 PM (477.8) ; Start Date : 4 Allergi c rhinitis: Due to other allergen; Note: Date Diagnosed : 06/24/2023 10:15 AM (477.8) ; Start Date : 4 Allergi c rhinitis: Due to other allergen; Note: Date Diagnosed : 06/17/2023 2:23 PM (477.8) ; Start Date : 4 Allergi c rhinitis: Due to other allergen; Note: Date Diagnosed : 06/09/2023 10:12 AM (477.8) ; Start Date : 4 Not Available [facility] 03:22:37 Bilateral disorder of Eustachia n tubes 00041912220 Active 2023 ROBIN JAMA PA-C [address], [place], [address] , [place] [facility] 09:40:32 Bilateral tinnitus 11910087202 02 Active 2023 MARY ALVARES [address], [place], [address] , [place] [facility] 12:55:53 Impacted cerumen of bilateral ears 24531940473 Active 2023 DOMINIC CALVILLO MD [address], [place], [place], [address] , [place] [facility] 13:19:34 Dysfuncti on of bilateral eustachia n tubes 83253066368 Active 2023 DOMINIC CALVILLO MD [address], [place], [address] , [place] [facility] 13:19:39 Seasonal allergic rhinitis 233808160 Active 2023 DOMINIC CALVILLO MD [address], [place], [address] , [place] [facility] 13:19:45 Problem Notes None recorded. Procedures Surgical History Date Name Laterality Status Provider Name and Address Organization Details Recorded Time 05/11/19 25 Allergy Immunotherapy Injections completed DARIAN BRENNER RMKirk [address], [place], [address], [place] [facility] 05/11/2024 10:31:23 05/04/19 25 Allergy Immunotherapy Injections completed DAYRON ALVAREZ RN [address], [address], [place] [facility] 05/04/2024 10:17:40 04/27/19 25 Allergy Immunotherapy Injections completed ОЛЬГА COOPER [address], [address], [place] [facility] 04/27/2024 09:49:38 04/20/19 25 Allergy Immunotherapy Injections completed DARIAN BRENNER RMKirk [address] [place] [address], [address], [place] [facility] 04/20/2024 12:09:44 04/13/20 24 Allergy Immunotherapy Injections completed DAYRON ALVAREZ RN [address] [place] [address], [address], [place] [facility] 04/13/2024 10:01:46 04/06/20 24 Allergy Immunotherapy Injections completed DAYRON ALVAREZ RN [address] [place] [address], [address], [place] [facility] 04/06/2024 09:57:36 03/30/20 24 Allergy Immunotherapy Injections completed ОЛЬГА COOPER [address], [address], [place] [facility] 03/30/2024 11:23:22 03/23/20 24 Allergy Immunotherapy Injections completed DARIAN BRENNER RMKirk [address], [address], [place] [facility] 03/23/2024 11:01:51 03/16/20 24 Allergy Immunotherapy Injections completed DAYRON ALVAREZ RN [address] [place] [address], [address], [place] [facility] 03/16/2024 10:18:10 03/09/20 24 Allergy Immunotherapy Injections completed DARIAN BRENNER A [address] [facility],[address], [address], [place] [facility] 03/09/2024 10:08:00 03/02/20 24 Allergy Immunotherapy Injections completed DAYRON ALVAREZ RN [address] [facility],[address], [address], [place] [facility] 03/02/2024 10:40:15 02/24/20 24 Allergy Immunotherapy Injections completed DARIAN BRENNER A [address] [facility],[address], [address], [place] [facility] 02/24/2024 10:02:16 02/17/20 24 Allergy Immunotherapy Injections completed ОЛЬГА COOPER [address] [place] [address],[address], [address], [place] [facility] 02/17/2024 09:51:14 02/10/20 24 Allergy Immunotherapy Injections completed DAYRON ALVAREZ RN [address] [facility],[address], [address], [place] [facility] 02/10/2024 11:06:13 02/03/20 24 Allergy Immunotherapy Injections completed ОЛЬГА COOPER [address] [facility],[address], [address], [place] [facility] 02/03/2024 09:51:56 01/27/20 24 Allergy Immunotherapy Injections completed DARIAN BRENNER A [address] [facility],[address], [address], [place] [facility] 01/27/2024 10:59:58 01/23/20 24 Cerumen removal with microscope bilateral completed DOMINIC CALVILLO MD [address] [facility],[address], [address], [place] [facility] 01/23/2024 13:19:27 01/23/20 24 Air & Speech Audio with Tymps ([id number], [id number] & [id number]) completed NEMO SUE, AUD [address] [place] [address], [address], [place] [facility] 01/23/2024 12:55:38 01/21/20 24 Allergy Immunotherapy Injections completed DAYRON ALVAREZ RN [address] [place] [address], [address], [place] [facility] 01/21/2024 11:35:49 01/13/20 24 Allergy Immunotherapy Injections completed ОЛЬГА MCCOY [address], [address], [place] [facility] 01/13/2024 10:24:18 01/06/20 24 Allergy Immunotherapy Injections completed ОЛЬГА MCCOY [address] [place] [address], [address], [place] [facility] 01/06/2024 10:51:00 12/30/19 24 Allergy Immunotherapy Injections completed ОЛЬГА COOPER [address] [facility] [place],[address], [address], [place] [facility] 12/30/2023 09:55:01 12/16/19 24 Allergy Immunotherapy Injections completed ОЛЬГА COOPER [address] [facility] [place],[address], [address], [place] [facility] 12/16/2023 10:17:29 12/08/19 24 Allergy Immunotherapy Injections completed DAYRON ALVAREZ RN [address] [facility] [place],[address], [address], [place] [facility] 12/08/2023 10:45:14 12/02/19 24 Allergy Immunotherapy Injections completed ОЛЬГА COOPER [address] [place] [address], [address], [place] [facility] 12/02/2023 09:31:58 11/25/19 24 Allergy Immunotherapy Injections completed DAYRON ALVAREZ RN [address] [place] [address], [address], [place] [facility] 11/25/2023 11:00:52 11/18/19 24 Allergy Immunotherapy Injections completed ОЛЬГА COOPER [address], [place], [address], [place] [facility] 11/18/2023 09:45:51 11/11/19 24 Allergy Immunotherapy Injections completed DAYRON ALVAREZ RN [address], [place], [address], [place] [facility] 11/11/2023 10:20:54 11/04/19 24 Allergy Immunotherapy Injections completed DAYRON ALVAREZ RN [address], [place], [address], [place] [facility] 11/04/2023 11:15:13 10/28/19 24 Allergy Immunotherapy Injections completed ОЛЬГА MCCOY [address], [address], [place] [facility] 10/28/2023 08:42:57 10/21/19 24 Allergy Immunotherapy Injections completed ОЛЬГА COOPER [address], [place], [address], [place] [facility] 10/21/2023 12:54:16 10/14/19 24 Allergy Immunotherapy Injections completed ОЛЬГА COOPER [address], [address], [place] [facility] 10/14/2023 10:26:23 10/07/19 24 Allergy Immunotherapy Injections completed ОЛЬГА COOPER [address], [address], [place] [facility] 10/07/2023 10:05:18 09/30/19 24 Allergy Immunotherapy Injections completed DARIAN BRENNER RMA [address], [place], [address], [place] [facility] 09/30/2023 09:57:23 09/23/19 24 Allergy Immunotherapy Injections completed DARIAN BRENNER RMA [address], [address], [place] [facility] 09/23/2023 10:12:31 09/16/19 24 Allergy Immunotherapy Injections completed DARIAN ORTA, [facility], [facility] [address] [facility] [place],[address], [place], [address], [facility] - [facility] 09/16/2023 13:57:16 09/09/19 24 Allergy Immunotherapy Injections completed LEATHA STERLING, [facility], [facility] [address] [facility] [place],[address], [place], [address], [facility] - [facility] 09/09/2023 09:40:09 09/02/19 24 Allergy Immunotherapy Injections completed DARIAN MARIVEL, [facility], [facility] [address] [facility],[address], [place], [address], [facility] - [facility] 09/02/2023 09:51:09 08/26/19 24 Allergy Immunotherapy Injections completed [facility], [facility], [facility] [address] [facility],[place] [address], [place], [address], [facility] - [facility] 08/26/2023 15:58:16 Imaging Results None recorded. Procedure Notes None recorded. Medical Equipment None Reported. Allergies No known drug allergies Medications Name Sig Start Date Stop Date Status Note LastModified by Organization Details LastModified Time Prescript ion - Prior Authoriza tion Request 12/07 completed Script Copy/Tierney or Auth^Scr ipt Copy/Tierney or Auth_201 [id number] Not Available Not Available Not Available prednison e 10 mg tablet TAKE 2 TABLETS BY MOUTH ONCE A DAY FOR 5 DAYS, THEN TAKE 1 TABLET BY MOUTH ONCE A DAY FOR 5 DAYS 12/07 completed Not Available Not Available Not Available atorvasta tin 20 mg tablet TAKE 1 TABLET BY MOUTH DAILY active Not Available Not Available No t Available metoprolo l succinate ER 50 mg tablet,ex tended release 24 hr 02/14 completed Medicati on ID: [id number] B rand Name: metoprol ol succinat e Send Method: E-Prescr ibed Sub s Allowed: subs OK Medic ationGen ericName : metoprol ol succinat e Not Available Not Available Not Available docusate calcium 240 mg capsule TAKE 1 CAPSULE BY MOUTH TWICE DAILY NEEDED active Not Available Not Available No t Available carvedilo l 3.125 mg tablet 02/14 completed Medicati on ID: [id number] B rand Name: carvedil ol Send Method: E-Prescr ibed Sub s Allowed: subs OK Medic ationGen ericName : carvedil ol Not Available Not Available Not Available lorazepam 0.5 mg tablet TAKE 1 TABLET BY MOUTH AT BEDTIME NEEDED FOR INSOMNIA OR ANXIETY 12/07 completed Not Available Not Available Not Available tamsulosi n 0.4 mg capsule 04/01 completed Medicati on ID: [id number] B rand Name: tamsulos in Send Method: E-Prescr ibed Sub s Allowed: subs OK Medic ationGen ericName : tamsulos in Not Available Not Available Not Available hydrocort isone-tyrese e vera 1 % topical cream APPLY SMALL AMOUNT TOPICALL Y TO THE AFFECTED AREA TWICE DAILY AFTER BOWEL MOVEMENT active Not Available Not Available No t Available lisinopri l 5 mg tablet TAKE 1 TABLET BY MOUTH EVERY DAY active Not Available Not Available No t Available zolpidem 5 mg tablet TAKE 1 TABLET BY MOUTH AT BEDTIME NEEDED FOR INSOMNIA active Not Available Not Available No t Available ergocalci ferol (vitamin D2) 1,250 mcg (50,000 unit) capsule TAKE 1 CAPSULE BY MOUTH 1 TIME A WEEK active Not Available Not Available No t Available fluticaso ne propionat e 50 mcg/actua tion nasal spray,geronimo pension SHAKE LIQUID AND USE 2 SPRAYS IN EACH NOSTRIL EVERY DAY NEEDED active Not Available Not Available No t Available loratadin e 10 mg capsule Take by oral route. active Not Available Not Available No t Available Allergy Relief (fexofena dine) 180 mg tablet TAKE 1 TABLET BY MOUTH EVERY DAY active Not Available Not Available No t Available EpiPen 2-Chester 0.3 mg/0.3 mL injection , auto-inje ctor Inject 1 pen injector single dose as needed 2023 active Medicati on ID: [id number] D uration Value: 1 Brand Name: EpiPen 2-Chester Se nd Method: E-Prescr ibed Sub s Allowed: subs OK Medic ationGen ericName : EpiPen 2-Chester Not Available Not Available Not Available Linzess 290 mcg capsule TAKE 1 CAPSULE BY MOUTH EVERY DAY NEEDED active Not Available Not Available No t Available Nasacort 55 mcg nasal spray aerosol 12/07 completed Medicati on ID: [id number] D uration Value: 30 Brand Name: Nasacort Send Method: E-Prescr ibed Sub s Allowed: subs OK Speci al Instruct ion: 2 sprays each nare once a day Medi cationGe nericNam e: Nasacort Not Available Not Available Not Available Vitals None Recorded Social History None recorded. Functional Status None recorded. Mental Status None recorded. Family History Nothing Reported. Medical History No medical history recorded. Past Encounters Encounter ID Performer Location Encounter Start Date Encounter Closed Date Diagnosis/Indication Diagnosis SNOMED-CT Code Diagnosis ICD10 Code Diagnosis Note [id number] DARIAN ORTA [facility], [facility] Allergy [address] [facility],[place] [address] [place] [address] 03/23/2024 10:21:05 03/23/2024 11:02:31 Perennial allergic rhinitis 292951552 J30.89 [id number] LEATHA VALDES [facility], [facility] Allergy [address] [place] [address],[place] [address] [place] [address] 03/30/2024 11:22:15 03/30/2024 11:23:49 Perennial allergic rhinitis 621268744 J30.89 [id number] DAYRON ALVAREZ RN Allergy [address] [place] [address],[place] [address] [place] [address] 04/06/2024 09:35:30 04/06/2024 09:57:52 Perennial allergic rhinitis [id number] J30.89 [id number] DAYRON ALVAREZ RN Allergy [address] [place] [address],[place] [address] [place] [address] 04/13/2024 09:47:44 04/13/2024 10:02:00 Perennial allergic rhinitis [id number] J30.89 [id number] DARIAN ORTA [facility], [facility] Allergy [address] [place] [address],[place] [address] [place] [address] 04/20/2024 09:13:31 04/20/2024 12:10:23 Perennial allergic rhinitis [id number] J30.89 Health Concerns Section Related Observation LastModified by Organization Detai ls LastModified Time None Recorded Concern Status LastModified by Organization Details LastModified Time None Recorded Payers Encounter Date Sequence Insurance Name Policy Number Policy Hussein Covered Member ID Hussein Member ID Guarantor Name 04/20/2024 1 [facility] [employer] Chuck Capellan Jr [id number] Chuck Capellan
--- OUTSIDE RECORDS SUMMARY | 2024-05-11 13:38 | XMS_ITS | Continuity of Care Document ---
Author Organization [place] [facility] Former[facility], Allergy Address [address] [place] [phone] Care Team Providers Care Water Reuse Program Manager Name Role Phone EDELMIRA SUMMERS Primary Care Provider Assessment Encounter Date Assessment Date Assessment LastModified by Organization Details LastModified Time 04/13/2024 04/13/2024 Visit With: Dayron Alvarez RN Use of Antihistamine s: No If yes: Vial Test Change in medications: No If yes ? ? ? Increase in asthma symptoms No Asthma Hx If yes, inhaler use: Reaction to last injections: No If yes: ? ? ? Allergy Symptoms: Other: ? ? ? Missed: Dose Aware of Vial Test Notes:? ? ? [email or web address] Not available 04/13/2024 10:01:19 Plan of Treatment Reminders Order Date Submit [...] Sensorine ural hearing loss of bilateral ears [id number] Active 2022 Sensorine ural hearing loss, bilateral ; Note: Date Diagnosed : 3 12:42 PM (H90.3) Not Available [facility] 4 03:22:37 Allergic rhinitis caused by pollen 55567023 Active 2022 Allergic rhinitis due to pollen; Note: Date Diagnosed : 3 12:42 PM (J30.1) Not Available [facility] 4 03:22:37 Perennial allergic rhinitis 526002368 Active 2023 [facility], [facility] [address] [facility],[place] [address], [place], [address] , [facility] 4 15:57:22 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 [id number] 9109 Active 2023 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; Note: Date Diagnosed : 05/16/2023 10:05 AM (J30.81) Not Available [facility] 4 03:22:37 Allergic rhinitis 89986478 Active 2023 Allergic rhinitis: Due to other [...] ; Start Date : 4 Not Available [facility] 03:22:37 Bilateral disorder of Eustachia n tubes 43319191791 Active 2023 ROBIN JAMA PA-C [address], [place], [address] , [place] [facility] 4 09:40:32 Bilateral tinnitus 79376210295 02 Active 2023 MARY ALVARES [address], [place], [place], [address] , [place] [facility] 4 12:55:53 Impacted cerumen of bilateral ears 01249801596 Active 2023 DOMINIC CALVILLO MD [address], [place], [place], [address] , [place] [facility] 4 13:19:34 Dysfuncti on of bilateral eustachia n tubes 39396977895 Active 2023 DOMINIC CALVILLO MD [address], [place], [place], [address] , [place] [facility] 4 13:19:39 Seasonal allergic rhinitis 512344530 Active 2023 DOMINIC CALVILLO MD [address], [place], [address] , [place] [facility] 13:19:45 Problem Notes None recorded. Procedures Surgical History Date Name Laterality Status Provider Name and Address Organization Details Recorded Time 05/11/19 25 Allergy Immunotherapy Injections completed ОЛЬГА MCCOY [address], [address], [place] [facility] 05/11/2024 10:31:23 05/04/19 25 Allergy Immunotherapy Injections completed DAYRON ALVAREZ RN [address], [address], [place] [facility] 05/04/2024 10:17:40 04/27/19 25 Allergy Immunotherapy Injections completed ОЛЬГА COOPER [address], [address], [place] [facility] 04/27/2024 09:49:38 04/20/19 25 Allergy Immunotherapy Injections completed DARIAN BRENNER RMKirk [address] [place] [address], [address], [place] [facility] 04/20/2024 12:09:44 04/13/20 24 Allergy Immunotherapy Injections completed DAYRON ALVAREZ RN [address] [place] [address], [address], [place] [facility] 04/13/2024 10:01:46 04/06/20 24 Allergy Immunotherapy Injections completed DAYRON ALVAREZ RN [address] [place] [address], [address], [place] [facility] 04/06/2024 09:57:36 03/30/20 24 Allergy Immunotherapy Injections completed ОЛЬГА COOPER [address], [address], [place] [facility] 03/30/2024 11:23:22 03/23/20 24 Allergy Immunotherapy Injections completed DARIAN BRENNER RMKirk [address], [address], [place] [facility] 03/23/2024 11:01:51 03/16/20 24 Allergy Immunotherapy Injections completed DAYRON ALVAREZ RN [address], [address], [place] [facility] 03/16/2024 10:18:10 03/09/20 24 Allergy Immunotherapy Injections completed ОЛЬГА MCCOY [address] [facility] [address], [address], [place] [facility] 03/09/2024 10:08:00 03/02/20 24 Allergy Immunotherapy Injections completed DAYRON ALVAREZ RN [address] [facility] [address], [address], [place] [facility] 03/02/2024 10:40:15 02/24/20 24 Allergy Immunotherapy Injections completed DARIAN BRENNER A [address] [facility] [address], [address], [place] [facility] 02/24/2024 10:02:16 02/17/20 24 Allergy Immunotherapy Injections completed ОЛЬГА COOPER [address] [facility], [address], [place] [facility] 02/17/2024 09:51:14 02/10/20 24 Allergy Immunotherapy Injections completed DAYRON ALVAREZ RN [address] [facility],[address], [address], [place] [facility] 02/10/2024 11:06:13 02/03/20 24 Allergy Immunotherapy Injections completed ОЛЬГА COOPER [address] [facility] [address], [address], [place] [facility] 02/03/2024 09:51:56 01/27/20 24 Allergy Immunotherapy Injections completed DARIAN BRENNER A [address] [facility] [address] [place] [address], [address], [place] [facility] 01/27/2024 10:59:58 01/23/20 24 Cerumen removal with microscope bilateral completed DOMINIC CALVILLO MD [address] [place] [address], [address], [place] [facility] 01/23/2024 13:19:27 01/23/20 24 Air & Speech Audio with Tymps ([id number], [id number] & [id number]) completed NEMO SUE, AUD [address], [place], [address], [place] [facility] 01/23/2024 12:55:38 01/21/20 24 Allergy Immunotherapy Injections completed DAYRON ALVAREZ RN [address], [address], [place] [facility] 01/21/2024 11:35:49 01/13/20 24 Allergy Immunotherapy Injections completed DARIAN BRENNER, RMA [address], [place], [address], [place] [facility] 01/13/2024 10:24:18 01/06/20 24 Allergy Immunotherapy Injections completed DARIAN BRENNER RMA [address] [facility], [place], [address], [place] [facility] 01/06/2024 10:51:00 12/30/19 24 Allergy Immunotherapy Injections completed ОЛЬГА COOPER [address] [facility] [address] [facility] [place] [address], [address], [place] [facility] 12/30/2023 09:55:01 12/16/19 24 Allergy Immunotherapy Injections completed ОЛЬГА COOPER [address] [facility] [address], [address], [place] [facility] 12/16/2023 10:17:29 12/08/19 24 Allergy Immunotherapy Injections completed DAYRON ALVAREZ RN [address] [facility],[address], [address], [place] [facility] 12/08/2023 10:45:14 12/02/19 24 Allergy Immunotherapy Injections completed ОЛЬГА COOPER [address] [facility] [address] [place] [address], [address], [place] [facility] 12/02/2023 09:31:58 11/25/19 24 Allergy Immunotherapy Injections completed DAYRON ALVAREZ RN [address] [place] [address], [address], [place] [facility] 11/25/2023 11:00:52 11/18/19 24 Allergy Immunotherapy Injections completed ОЛЬГА COOPER [address], [place], [address], [place] [facility] 11/18/2023 09:45:51 11/11/19 24 Allergy Immunotherapy Injections completed DAYRON ALVAREZ RN [address], [place], [address], [place] [facility] 11/11/2023 10:20:54 11/04/19 24 Allergy Immunotherapy Injections completed DAYRON ALVAREZ RN [address], [place], [address], [place] [facility] 11/04/2023 11:15:13 10/28/19 24 Allergy Immunotherapy Injections completed ОЛЬГА MCCOY [address], [place], [address], [place] [facility] 10/28/2023 08:42:57 10/21/19 24 Allergy Immunotherapy Injections completed ОЛЬГА COOPER [address], [place], [address], [place] [facility] 10/21/2023 12:54:16 10/14/19 24 Allergy Immunotherapy Injections completed ОЛЬГА COOPER [address], [place], [address], [place] [facility] 10/14/2023 10:26:23 10/07/19 24 Allergy Immunotherapy Injections completed ОЛЬГА COOPER [address], [place], [address], [place] [facility] 10/07/2023 10:05:18 09/30/19 24 Allergy Immunotherapy Injections completed DARIAN BRENNER RMA [address], [place], [address], [place] [facility] 09/30/2023 09:57:23 09/23/19 24 Allergy Immunotherapy Injections completed DARIAN BRENNER RMA [address], [place], [address], [place] [facility] 09/23/2023 10:12:31 09/16/19 24 Allergy Immunotherapy Injections completed DARIAN BRENNER, A [address], [place], [address], [facility] 09/16/2023 13:57:16 09/09/19 24 Allergy Immunotherapy Injections completed SHAKEEL KATZ, [facility] [address], [place], [address], [facility] - [facility] 09/09/2023 09:40:09 09/02/19 24 Allergy Immunotherapy Injections completed DARIAN ORTA, [facility] [address] [facility] [facility], [place], [address], [facility] - [facility] 09/02/2023 09:51:09 08/26/19 24 Allergy Immunotherapy Injections completed DARIAN MARIVEL, [facility] [address], [place], [address], [facility] 08/26/2023 15:58:16 Imaging Results None recorded. Procedure Notes None recorded. Medical Equipment None Reported. Allergies No known drug allergies Medications Name Sig Start Date Stop Date Status Note LastModified by Organization Details LastModified Time Prescript ion - Prior Authoriza tion Request 12/07 completed Script Copy/Tierney or Auth^Scr ipt Copy/Tierney or Auth_201 [id number] Not Available Not Available Not Available prednison [...] 24 hr 02/14 completed Medicati on ID: [id number] B rand Name: metoprol ol succinat e Send Method: E-Prescr ibed Sub s Allowed: subs OK Medic ationGen ericName : metoprol ol succinat e Not Available Not Available Not Available docusate calcium 240 mg capsule TAKE 1 CAPSULE BY MOUTH TWICE DAILY NEEDED active Not Available Not Available No t Available carvedilo l 3.125 mg tablet 02/14 completed Medicati on ID: [id number] B rand Name: carvedil ol Send Method: E-Prescr ibed Sub s Allowed: subs OK Medic ationGen ericName : carvedil ol Not Available Not Available Not Available lorazepam 0.5 mg tablet TAKE 1 TABLET BY MOUTH AT BEDTIME NEEDED FOR INSOMNIA OR ANXIETY 12/07 completed Not Available Not Available Not Available tamsulosi n 0.4 mg capsule 04/01 completed Medicati on ID: [id number] B rand Name: tamsulos in Send Method: [...] as needed 2023 active Medicati on ID: [id number] D uration Value: 1 Brand Name: EpiPen 2-Chester Se nd Method: E-Prescr ibed Sub s Allowed: subs OK Medic ationGen ericName : EpiPen 2-Chester Not Available Not Available Not Available Linzess 290 mcg capsule TAKE 1 CAPSULE BY MOUTH EVERY DAY NEEDED active Not Available Not Available No t Available Nasacort 55 mcg nasal spray aerosol 12/07 completed Medicati on ID: [id number] D uration Value: 30 Brand Name: Nasacort [...] SNOMED-CT Code Diagnosis ICD10 Code Diagnosis Note [id number] DAYRON ALVAREZ RN Allergy [address] [facility],[place] [address] [place] [address] 03/16/2024 09:36:50 03/16/2024 10:18:42 Perennial allergic rhinitis [id number] J30.89 [id number] DARIAN ORTA, [facility] Allergy [address] [place] [address],[place] [address] [place] [address] 03/23/2024 10:21:05 03/23/2024 11:02:31 Perennial allergic rhinitis 113229060 J30.89 [id number] SHAKEEL KATZ [facility] Allergy [address] [place] [address],[place] [address] [facility] [place] [address] 03/30/2024 11:22:15 03/30/2024 11:23:49 Perennial allergic rhinitis [id number] J30.89 [id number] DAYRON ALVAREZ RN Allergy [address] [place] [address],[place] [address] [place] [address] 04/06/2024 09:35:30 04/06/2024 09:57:52 Perennial allergic rhinitis 924559060 J30.89 [id number] DAYRON ALVAREZ RN Allergy [address] [place] [address],[place] [address] [facility] [place] [address] 04/13/2024 09:47:44 04/13/2024 10:02:00 Perennial allergic rhinitis 797518535 J30.89 Health Concerns Section Related Observation LastModified by Organization Detai ls LastModified Time None Recorded Concern Status LastModified by Organization Details LastModified Time None Recorded Payers Encounter Date Sequence Insurance Name Policy Number Policy Hussein Covered Member ID Hussein Member ID Guarantor Name 04/13/2024 1 [facility] Chuck Capellan Jr [id number] Chuck Capellan
--- OUTSIDE RECORDS SUMMARY | 2024-05-11 13:38 | XMS_ITS | Continuity of Care Document ---
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 ? ? Increase in asthma symptoms If yes, inhaler use: Reaction to last injections: No If yes: ? ? ? Allergy Symptoms: Other: ? ? ? Missed: Dose Aware of Vial Test Notes:? ? ? [email or web address] Not available 05/11/2024 10:31:30 Plan of Treatment Reminders Order Date Submit [...] Sensorine ural hearing loss of bilateral ears [id number] Active 2022 Sensorine ural hearing loss, bilateral ; Note: Date Diagnosed : 3 12:42 PM (H90.3) Not Available [facility] 4 03:22:37 Allergic rhinitis caused by pollen 30895307 Active 2022 Allergic rhinitis due to pollen; Note: Date Diagnosed : 3 12:42 PM (J30.1) Not Available [facility] hospital 4 03:22:37 Perennial allergic rhinitis 852617378 Active [address]23 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; Note: Date Diagnosed : 05/16/2023 10:05 AM (J30.81) Not Available [facility] hospital 4 03:22:37 Allergic rhinitis 31952593 Active 2023 Allergic rhinitis: Due to other [...] ; Start Date : 4 Not Available [facility] 03:22:37 Bilateral disorder of Eustachia n tubes 65190237745 Active 2023 ROBIN JAMA PA-C [address], [place], [place], [address] , [place] - [facility] 4 09:40:32 Bilateral tinnitus 33855424221 02 Active 2023 MARY ALVARES [address], [place], [place], [address] , [place] - [facility] 4 12:55:53 Impacted cerumen of bilateral ears 30472348164 Active 2023 DOMINIC CALVILLO MD [address], [place], [place], [address] , [place] - [facility] 4 13:19:34 Dysfuncti on of bilateral eustachia n tubes 70694305265 Active 2023 DOMINIC CALVILLO MD [address], [place], [place], [address] , [place] - [facility] 4 13:19:39 Seasonal allergic rhinitis 194013841 Active 2023 DOMINIC CALVILLO MD [address], [place], [address] , [place] [facility] 13:19:45 Problem Notes None recorded. Procedures Surgical History Date Name Laterality Status Provider Name and Address Organization Details Recorded Time 05/11/19 25 Allergy Immunotherapy Injections completed DARIAN BRENNER RMKirk [address] [place] [address], [address], [place] - [facility] 05/11/2024 10:31:23 05/04/19 25 Allergy Immunotherapy Injections completed DAYRON ALVAREZ RN [address], [place], [address], [place] [facility] 05/04/2024 10:17:40 04/27/19 25 Allergy Immunotherapy Injections completed ОЛЬГА COOPER [address], [place], [address], [place] [facility] 04/27/2024 09:49:38 04/20/19 25 Allergy Immunotherapy Injections completed DARIAN BRENNER RMKirk [address] [address] [place] [address], [address], [place] [facility] 04/20/2024 12:09:44 04/13/20 24 Allergy Immunotherapy Injections completed DAYRON ALVAREZ RN [address] [facility] [address] [address] [place] [address], [address], [place] [facility] 04/13/2024 10:01:46 04/06/20 24 Allergy Immunotherapy Injections completed DAYRON ALVAREZ RN [address] [address] [place] [address], [address], [place] [facility] 04/06/2024 09:57:36 03/30/20 24 Allergy Immunotherapy Injections completed ОЛЬГА COOPER [address], [place], [address], [place] [facility] 03/30/2024 11:23:22 03/23/20 24 Allergy Immunotherapy Injections completed DARIAN BRENNER RMKirk [address], [place], [address], [place] [facility] 03/23/2024 11:01:51 03/16/20 24 Allergy Immunotherapy Injections completed DAYRON ALVAREZ RN [address] [facility] [address], [place], [address], [place] [facility] 03/16/2024 10:18:10 03/09/20 24 Allergy Immunotherapy Injections completed ОЛЬГА MCCOY [address] [facility],[address] [address] [place] [address], [address], [place] [facility] 03/09/2024 10:08:00 03/02/20 24 Allergy Immunotherapy Injections completed DAYRON ALVAREZ RN [address] [facility],[address], [address], [place] [facility] 03/02/2024 10:40:15 02/24/20 24 Allergy Immunotherapy Injections completed DARIAN BRENNER [facility] [address] [facility] [place],[address], [address], [place] [facility] 02/24/2024 10:02:16 02/17/20 24 Allergy Immunotherapy Injections completed ОЛЬГА COOPER [address] [facility],[address], [address], [place] [facility] 02/17/2024 09:51:14 02/10/20 24 Allergy Immunotherapy Injections completed DAYRON ALVAREZ RN [address] [facility],[address], [address], [place] [facility] 02/10/2024 11:06:13 02/03/20 24 Allergy Immunotherapy Injections completed ОЛЬГА COOPER [address] [facility],[address], [address], [place] [facility] 02/03/2024 09:51:56 01/27/20 24 Allergy Immunotherapy Injections completed DARIAN BRENNER A [address] [facility],[address] [place] [address], [address], [place] [facility] 01/27/2024 10:59:58 01/23/20 24 Cerumen removal with microscope bilateral completed DOMINIC CALVILLO MD [address] [facility] [address] [place] [address], [address], [place] [facility] 01/23/2024 13:19:27 01/23/20 24 Air & Speech Audio with Tymps ([id number], [id number] & [id number]) completed MARY ALVARES [address], [place], [address], [place] [facility] 01/23/2024 12:55:38 01/21/20 24 Allergy Immunotherapy Injections completed DAYRON ALVAREZ RN [address] [facility] [address], [place], [address], [place] [facility] 01/21/2024 11:35:49 01/13/20 24 Allergy Immunotherapy Injections completed DARIAN BRENNER RMA [address] [facility] [address] [place] [address], [address], [place] [facility] 01/13/2024 10:24:18 01/06/20 24 Allergy Immunotherapy Injections completed DARIAN BRENNER RMA [address] [facility] [address], [address], [place] [facility] 01/06/2024 10:51:00 12/30/19 24 Allergy Immunotherapy Injections completed ОЛЬГА COOPER [address] [facility],[address], [address], [place] [facility] 12/30/2023 09:55:01 12/16/19 24 Allergy Immunotherapy Injections completed ОЛЬГА COOPER [address] [facility],[address], [address], [place] [facility] 12/16/2023 10:17:29 12/08/19 24 Allergy Immunotherapy Injections completed DAYRON ALVAREZ RN [address] [facility],[address], [address], [place] [facility] 12/08/2023 10:45:14 12/02/19 24 Allergy Immunotherapy Injections completed ОЛЬГА COOPER [address] [facility],[address], [address], [place] [facility] 12/02/2023 09:31:58 11/25/19 24 Allergy Immunotherapy Injections completed DAYRON ALVAREZ RN [address] [facility] [address] [place] [address], [address], [place] [facility] 11/25/2023 11:00:52 11/18/19 24 Allergy Immunotherapy Injections completed ОЛЬГА COOPER [address], [place], [address], [place] [facility] 11/18/2023 09:45:51 11/11/19 24 Allergy Immunotherapy Injections completed DAYRON ALVAREZ RN [address], [place], [address], [place] [facility] 11/11/2023 10:20:54 11/04/19 24 Allergy Immunotherapy Injections completed DAYRON ALVAREZ RN [address], [place], [address], [place] [facility] 11/04/2023 11:15:13 10/28/19 24 Allergy Immunotherapy Injections completed ОЛЬГА MCCOY [address], [place], [address], [place] [facility] 10/28/2023 08:42:57 10/21/19 24 Allergy Immunotherapy Injections completed ОЛЬГА COOPER [address], [place], [address], [place] [facility] 10/21/2023 12:54:16 10/14/19 24 Allergy Immunotherapy Injections completed ОЛЬГА COOPER [address], [place], [address], [place] [facility] 10/14/2023 10:26:23 10/07/19 24 Allergy Immunotherapy Injections completed ОЛЬГА COOPER [address], [place], [address], [place] [facility] 10/07/2023 10:05:18 09/30/19 24 Allergy Immunotherapy Injections completed DARIAN BRENNER RMA [address], [place], [address], [place] [facility] 09/30/2023 09:57:23 09/23/19 24 Allergy Immunotherapy Injections completed DARIAN BRENNER RMA [address], [place], [address], [place] [facility] 09/23/2023 10:12:31 09/16/19 24 Allergy Immunotherapy Injections completed DARIAN ORTA, [facility] [address] [facility],[address], [place], [address], [facility] - [facility] 09/16/2023 13:57:16 09/09/19 24 Allergy Immunotherapy Injections completed SHAKEEL KATZ, [facility] [address] [facility],[address], [place], [address], [facility] - [facility] 09/09/2023 09:40:09 09/02/19 24 Allergy Immunotherapy Injections completed DARIAN ORTA, [facility] [address] [facility],[address], [place], [address], [facility] - [facility] 09/02/2023 09:51:09 08/26/19 24 Allergy Immunotherapy Injections completed DARIAN MARIVEL, [facility] [address] [facility],[place] [address], [place], [address], [facility] - [facility] 08/26/2023 15:58:16 Imaging Results None recorded. Procedure Notes None recorded. Medical Equipment None Reported. Allergies No known drug allergies Medications Name Sig Start Date Stop Date Status Note LastModified by Organization Details LastModified Time Prescript ion - Prior Authoriza tion Request 12/07 completed Script Copy/Tierney or Auth^Scr ipt Copy/Tierney or Auth_201 [id number] Not Available Not Available Not Available prednison [...] 24 hr 02/14 completed Medicati on ID: [id number] B rand Name: metoprol ol succinat e Send Method: E-Prescr ibed Sub s Allowed: subs OK Medic ationGen ericName : metoprol ol succinat e Not Available Not Available Not Available docusate calcium 240 mg capsule TAKE 1 CAPSULE BY MOUTH TWICE DAILY NEEDED active Not Available Not Available No t Available carvedilo l 3.125 mg tablet 02/14 completed Medicati on ID: [id number] B rand Name: carvedil ol Send Method: E-Prescr ibed Sub s Allowed: subs OK Medic ationGen ericName : carvedil ol Not Available Not Available Not Available lorazepam 0.5 mg tablet TAKE 1 TABLET BY MOUTH AT BEDTIME NEEDED FOR INSOMNIA OR ANXIETY 12/07 completed Not Available Not Available Not Available tamsulosi n 0.4 mg capsule 04/01 completed Medicati on ID: [id number] B rand Name: tamsulos in Send Method: [...] as needed 2023 active Medicati on ID: [id number] D uration Value: 1 Brand Name: EpiPen 2-Chester Se nd Method: E-Prescr ibed Sub s Allowed: subs OK Medic ationGen ericName : EpiPen 2-Chester Not Available Not Available Not Available Linzess 290 mcg capsule TAKE 1 CAPSULE BY MOUTH EVERY DAY NEEDED active Not Available Not Available No t Available Nasacort 55 mcg nasal spray aerosol 12/07 completed Medicati on ID: [id number] D uration Value: 30 Brand Name: Nasacort [...] SNOMED-CT Code Diagnosis ICD10 Code Diagnosis Note [id number] DAYRON ALVAREZ RN Allergy [address] [facility],[place] [address] [place] [address] 04/13/2024 09:47:44 04/13/2024 10:02:00 Perennial allergic rhinitis 142582491 J30.[id number] [facility] [address] [place] [address],[place] [address] [place] [address] 04/20/2024 09:13:31 04/20/2024 12:10:23 Perennial allergic rhinitis 063454398 J30.89 [id number] SHAKEEL KATZ [facility] Allergy [address] [place] [address],[place] [address] [place] [address] 04/27/2024 09:42:24 04/27/2024 09:50:44 Perennial allergic rhinitis 239764308 J30.89 [id number] DAYRON ALVAREZ RN Allergy [address] [place] [address],[place] [address] [facility] [address] 05/04/2024 10:07:29 05/04/2024 10:31:50 Perennial allergic rhinitis 490561089 J30.89 [id number] [facility] Allergy [address] [place] [address],[place] [address] [facility] [place] [address] 05/11/2024 08:50:16 05/11/2024 10:49:00 Perennial allergic rhinitis 794082213 J30.89 Health Concerns Section Related Observation LastModified by Organization Detai ls LastModified Time None Recorded Concern Status LastModified by Organization Details LastModified Time None Recorded Payers Encounter Date Sequence Insurance Name Policy Number Policy Hussein Covered Member ID Hussein Member ID Guarantor Name 05/11/2024 1 [facility] [id number] Chuck Capellan Jr [id number] Chuck Capellan
--- OUTSIDE RECORDS SUMMARY | 2024-05-11 13:38 | XMS_ITS | Continuity of Care Document ---
Author Organization [place] [facility], Allergy Address [address] [place] [address] Care Team Providers Care Dimension Specification Inspector Name Role Phone EDELMIRA SUMMERS Primary Care Provider Assessment Encounter Date Assessment Date Assessment LastModified by Organization Details LastModified Time 04/27/2024 04/27/2024 Visit With: Leatha Valdes Use of Antihistamine s: No If yes: Vial Test Change in medications: No If yes ? ? ? Increase in asthma symptoms If yes, inhaler use: Reaction to last injections: No If yes: ? ? ? Allergy Symptoms: Other: ? ? ?has liquid coming down from ears, he thinks its the allergy shots causing this Missed: Dose Aware of Vial Test Notes:? ? ? [email or web address] Not available 04/27/2024 09:50:29 Plan of Treatment Reminders Order Date Submit [...] Sensorine ural hearing loss of bilateral ears [id number] Active 2022 Sensorine ural hearing loss, bilateral ; Note: Date Diagnosed : 3 12:42 PM (H90.3) Not Available [facility] 4 03:22:37 Allergic rhinitis caused by pollen 18389198 Active 2022 Allergic rhinitis due to pollen; Note: Date Diagnosed : 3 12:42 PM (J30.1) Not Available [facility] 4 03:22:37 Perennial allergic rhinitis 867103974 Active 2023 [facility], [facility] [address] [facility],[place] [address], [place], [address] , 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 [id number] 9109 Active 2023 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; Note: Date Diagnosed : 05/16/2023 10:05 AM (J30.81) Not Available [facility] 4 03:22:37 Allergic rhinitis 43973207 Active 2023 Allergic rhinitis: Due to other [...] ; Start Date : 4 Not Available [facility] 03:22:37 Bilateral disorder of Eustachia n tubes 34180512426 29628 Active 2023 ROBIN JAMA PA-C [address] [facility] [address], [place], [address] , [place] [facility] [place] 4 09:40:32 Bilateral tinnitus 44374027427 02 Active 2023 MARY ALVARES [address] [facility] [address], [place], [address] , [place] [facility] [place] 4 12:55:53 Impacted cerumen of bilateral ears 38138873144 88909 Active 2023 DOMINIC CALVILLO MD 100 [facility] [address],[facility] [address], [place], [address] , [place] - [facility] 4 13:19:34 Dysfuncti on of bilateral eustachia n tubes 35673886668 45135 Active 2023 DOMINIC CALVILLO MD [address] [facility] [address], [place], [address] , [place] - [facility] 4 13:19:39 Seasonal allergic rhinitis 779915179 Active 2023 DOMINIC CALVILLO MD [address] [facility] [address],[facility] 100, [place], [address] , [place] [facility] 13:19:45 Problem Notes None recorded. Procedures Surgical History Date Name Laterality Status Provider Name and Address Organization Details Recorded Time 05/11/19 25 Allergy Immunotherapy Injections completed ОЛЬГА MCCOY [address], [place], [address], [place] [facility] 05/11/2024 10:31:23 05/04/19 25 Allergy Immunotherapy Injections completed DAYRON ALVAREZ RN [address], [place], [address], [place] [facility] 05/04/2024 10:17:40 04/27/19 25 Allergy Immunotherapy Injections completed ОЛЬГА COOPER [address],[place], [place], [address], [place] [facility] 04/27/2024 09:49:38 04/20/19 25 Allergy Immunotherapy Injections completed ОЛЬГА MCCOY [address],[place] [address] [place] [address], [address], [place] [facility] 04/20/2024 12:09:44 04/13/20 24 Allergy Immunotherapy Injections completed DAYRON ALVAREZ RN 100 [facility],[place] [address] [place] [address], [address], [place] [facility] 04/13/2024 10:01:46 04/06/20 24 Allergy Immunotherapy Injections completed DAYRON ALVAREZ RN [address] [facility],[place] [address] [place] [address], [address], [place] [facility] 04/06/2024 09:57:36 03/30/20 24 Allergy Immunotherapy Injections completed ОЛЬГА COOPER [address], [place], [address], [place] [facility] 03/30/2024 11:23:22 03/23/20 24 Allergy Immunotherapy Injections completed ОЛЬГА MCCOY [address], [place], [address], [place] [facility] 03/23/2024 11:01:51 03/16/20 24 Allergy Immunotherapy Injections completed DAYRON ALVAREZ RN [address] [facility],[place] [address] [place] [address], [address], [facility] - [facility] [place] 03/16/2024 10:18:10 03/09/20 24 Allergy Immunotherapy Injections completed DARIAN BRENNER RMA 100 [facility],[place] [address] [place] [address], [address], [place] [facility] [place] 03/09/2024 10:08:00 03/02/20 24 Allergy Immunotherapy Injections completed DAYRON ALVAREZ RN 100 [facility],[address], [address], [place] [facility] [place] 03/02/2024 10:40:15 02/24/20 24 Allergy Immunotherapy Injections completed DARIAN BRENNER RMA 100 [facility],[address], [address], [place] [facility] [place] 02/24/2024 10:02:16 02/17/20 24 Allergy Immunotherapy Injections completed ОЛЬГА COOPER 100 [facility],[address], [address], [facility] - [facility] [place] 02/17/2024 09:51:14 02/10/20 24 Allergy Immunotherapy Injections completed DAYRON ALVAREZ RN 100 [facility],[address], [address], [facility] - [facility] [place] 02/10/2024 11:06:13 02/03/20 24 Allergy Immunotherapy Injections completed ОЛГЬА COOPER 100 [facility],[address], [address], [facility] - [facility] [place] 02/03/2024 09:51:56 01/27/20 24 Allergy Immunotherapy Injections completed DARIAN BRENNER RMA 100 [facility] [address],[place] [address] [place] [address], [address], [place] [facility] [place] 01/27/2024 10:59:58 01/23/20 24 Cerumen removal with microscope bilateral completed DOMINIC CALVILLO MD [address] [facility] [place] [address], [address], [place] [facility] [place] 01/23/2024 13:19:27 01/23/20 24 Air & Speech Audio with Tymps ([id number], [id number] & 85757) completed NEMO ROGERS, AUD [address], [place], [address], [place] [facility] [place] 01/23/2024 12:55:38 01/21/20 24 Allergy Immunotherapy Injections completed DAYRON ALVAREZ RN [address] [facility] [facility] [place], [place], [address], [place] [facility] [place] 01/21/2024 11:35:49 01/13/20 24 Allergy Immunotherapy Injections completed DARIAN BRENNER, RMA [address] [facility], [place], [address], [place] [facility] [place] 01/13/2024 10:24:18 01/06/20 24 Allergy Immunotherapy Injections completed DARIAN BRENNER, RMA [address] [facility],[place] [address] [place] [address], [address], [place] [facility] [place] 01/06/2024 10:51:00 12/30/19 24 Allergy Immunotherapy Injections completed ОЛЬГА COOPER [address] [facility] [address] [place] [address], [address], [place] [facility] [place] 12/30/2023 09:55:01 12/16/19 24 Allergy Immunotherapy Injections completed ОЛЬГА COOPER [address] [facility] [place] [address], [address], [place] [facility] [place] 12/16/2023 10:17:29 12/08/19 24 Allergy Immunotherapy Injections completed DAYRON ALVAREZ RN 100 [facility] [address],[place] [address] [place] [address], [address], [place] [facility] [place] 12/08/2023 10:45:14 12/02/19 24 Allergy Immunotherapy Injections completed ОЛЬГА COOPER [address] [facility] [place] [address], [address], [place] [facility] [place] 12/02/2023 09:31:58 11/25/19 24 Allergy Immunotherapy Injections completed DAYRON ALVAREZ RN [address] [facility],[place] [address] [place] [address], [address], [place] [facility] [place] 11/25/2023 11:00:52 11/18/19 24 Allergy Immunotherapy Injections completed ОЛЬГА COOPER [address], [place], [address], [place] [facility] 11/18/2023 09:45:51 11/11/19 24 Allergy Immunotherapy Injections completed DAYRON ALVAREZ RN [address], [place], [address], [place] [facility] [place] 11/11/2023 10:20:54 11/04/19 24 Allergy Immunotherapy Injections completed DAYRON ALVAREZ RN [address], [place], [address], [place] [facility] [place] 11/04/2023 11:15:13 10/28/19 24 Allergy Immunotherapy Injections completed DARIAN BRENNER RMKirk [address], [place], [address], [place] [facility] [place] 10/28/2023 08:42:57 10/21/19 24 Allergy Immunotherapy Injections completed ОЛЬГА COOPER [address], [place], [address], [place] [facility] [place] 10/21/2023 12:54:16 10/14/19 24 Allergy Immunotherapy Injections completed ОЛЬГА COOPER [address],[place], [place], [address], [place] [facility] [place] 10/14/2023 10:26:23 10/07/19 24 Allergy Immunotherapy Injections completed ОЛЬГА COOPER [address], [place], [address], [place] [facility] 10/07/2023 10:05:18 09/30/19 24 Allergy Immunotherapy Injections completed DARIAN BRENNER RMA [address], [place], [address], [place] [facility] [place] 09/30/2023 09:57:23 09/23/19 24 Allergy Immunotherapy Injections completed DARIAN BRENNRE RMA [address],[place], [place], [address], [place] [facility] [place] 09/23/2023 10:12:31 09/16/19 24 Allergy Immunotherapy Injections completed [facility], [facility] [address] [facility] [address],[place] [address], [place], [address], [facility] - [facility] [place] 09/16/2023 13:57:16 09/09/19 24 Allergy Immunotherapy Injections completed LEATHA STERLING, [facility] [address] [facility] [address],[facility] 100, [place], [address], [facility] - [facility] 09/09/2023 09:40:09 09/02/19 24 Allergy Immunotherapy Injections completed DARIAN ORTA, [facility] [address] [facility] [address],[place] [address], [place], [address], [facility] - [facility] 09/02/2023 09:51:09 08/26/19 24 Allergy Immunotherapy Injections completed [facility], [facility] 100 [facility],[address], [address], [facility] - [facility] 08/26/2023 15:58:16 Imaging Results None recorded. Procedure Notes None recorded. Medical Equipment None Reported. Allergies No known drug allergies Medications Name Sig Start Date Stop Date Status Note LastModified by Organization Details LastModified Time Prescript ion - Prior Authoriza tion Request 12/07 completed Script Copy/Tierney or Auth^Scr ipt Copy/Tierney or Auth_201 [id number] Not Available Not Available Not Available prednison [...] 24 hr 02/14 completed Medicati on ID: [id number] B rand Name: metoprol ol succinat e Send Method: E-Prescr ibed Sub s Allowed: subs OK Medic ationGen ericName : metoprol ol succinat e Not Available Not Available Not Available docusate calcium 240 mg capsule TAKE 1 CAPSULE BY MOUTH TWICE DAILY NEEDED active Not Available Not Available No t Available carvedilo l 3.125 mg tablet 11/03 /2023 completed Medicati on ID: [id number] B rand Name: carvedil ol Send Method: E-Prescr ibed Sub s Allowed: subs OK Medic ationGen ericName : carvedil ol Not Available Not Available Not Available lorazepam 0.5 mg tablet TAKE 1 TABLET BY MOUTH AT BEDTIME NEEDED FOR INSOMNIA OR ANXIETY 12/07 completed Not Available Not Available Not Available tamsulosi n 0.4 mg capsule 04/01 completed Medicati on ID: [id number] B rand Name: tamsulos in Send Method: [...] as needed 2023 active Medicati on ID: [id number] D uration Value: 1 Brand Name: EpiPen 2-Chester Se nd Method: E-Prescr ibed Sub s Allowed: subs OK Medic ationGen ericName : EpiPen 2-Chester Not Available Not Available Not Available Linzess 290 mcg capsule TAKE 1 CAPSULE BY MOUTH EVERY DAY NEEDED active Not Available Not Available No t Available Nasacort 55 mcg nasal spray aerosol 12/07 completed Medicati on ID: [id number] D uration Value: 30 Brand Name: Nasacort [...] SNOMED-CT Code Diagnosis ICD10 Code Diagnosis Note [id number] LEATHA VALDES [facility] Allergy [address] [facility],[place] [address] [facility] [place] [address] 03/30/2024 11:22:15 03/30/2024 11:23:49 Perennial allergic rhinitis [id number] J30.89 [id number] DAYRON ALVAREZ RN Allergy [address] [place] [address],[place] [address] [place] [address] 04/06/2024 09:35:30 04/06/2024 09:57:52 Perennial allergic rhinitis 473430285 J30.89 [id number] DAYRON ALVAREZ RN Allergy [address] [place] [address],[place] [address] [facility] [place] [address] 04/13/2024 09:47:44 04/13/2024 10:02:00 Perennial allergic rhinitis [id number] J30.89 [id number] DARIAN BRENNER [facility] Allergy [address] [facility],[place] [address] [place] [address] 04/20/2024 09:13:31 04/20/2024 12:10:23 Perennial allergic rhinitis [id number] J30.89 [id number] LEATHA VALDES [facility] Allergy [address] [place] [address],[place] [address] [facility] [place] [address] 04/27/2024 09:42:24 04/27/2024 09:50:44 Perennial allergic rhinitis [id number] J30.89 Health Concerns Section Related Observation LastModified by Organization Detai ls LastModified Time None Recorded Concern Status LastModified by Organization Details LastModified Time None Recorded Payers Encounter Date Sequence Insurance Name Policy Number Policy Hussein Covered Member ID Hussein Member ID Guarantor Name 04/27/2024 1 [facility] [id number] Chuck Capellan Jr [id number] Chuck Capellan
--- OUTSIDE RECORDS SUMMARY | 2024-05-11 13:38 | XMS_ITS | Clinical Summary ---
Author Organization [facility] ity Address [address] [place] [address] Care Team Providers Care Training Consultant Name Role Phone Unavailable Primary Care Provider Unavailabl e Social History Tobacco Use Types Packs/Day Years Used Date Smoking Tobacco: Never Assessed Sex and Gender Information Value Date Recorded Sex Assigned at Not on file Gender Identity Not on file Sexual Orientation Not on file Plan of Treatment Health Maintenance Due Date Last Done Comments DTaP,Tdap,and Td Vaccines (1 - Tdap) 1961 Zoster Vaccines (1 of 2) 1992 Pneumococcal Vaccine: 65+ Ye ars (1 of 1 - PCV) 12/11/2007 RSV Immunization Patients 60 + Years Old (1 - 1-dose 75+ series) 2017 Cholesterol Screening (Lipid Panel) 03/17/2022 Depression Screening 03/17/2022 Falls Risk Assessment 03/17/2022 Social Influencers of Health Screening 03/17/2022 COVID-19 Vaccine (2023-2 5 season) 2023 Influenza Vaccine (#1) 2023 HIB Vaccines Aged Out No longer eligi ble based on patient's age to complete this topic HPV Vaccines Aged Out No longer eligi ble based on patient's age to complete this topic Hepatitis A Vaccines Aged Out No long er eligible based on patient's age to complete this topic Hepatitis B Vaccines Aged Out No long er eligible based on patient's age to complete this topic IPV Vaccines Aged Out No longer eligi ble based on patient's age to complete this topic MMR Vaccines Aged Out No longer eligi ble based on patient's age to complete this topic Meningococcal ACWY Vaccine Aged Out N o longer eligible based on patient's age to complete this topic RSV Immunization Patients Un benito 20 months Aged Out No longer eligible b ased on patient's age to complete this topic Varicella Vaccines Aged Out No longer eligible based on patient's age to complete this topic
--- OUTSIDE RECORDS SUMMARY | 2024-05-11 13:38 | XMS_ITS | Data Portability ---
Author Organization [place] - [facility], Allergy Address [address] [place] [address] Care Team Providers Care Testing Consultant Name Role Phone EDELMIRA SUMMERS Primary Care Provider [phone] Assessment Encounter Date Assessment Date Assessment LastModified by Organization Details LastModified Time 04/13/2024 04/13/2024 Visit With: Dayron Alvarez RN Use of Antihistamine s: No If yes: Vial Test Change in medications: No If yes ?? Increase in asthma symptoms No Asthma Hx If yes, inhaler use: Reaction to last injections: No If yes: ?? Allergy Symptoms: Other: ?? Missed: Dose Aware of Vial Test Notes:?? [email or web address] Not available 04/13/2024 10:01:19 04/20/2024 04/20/2024 Visit With: Leatha Katz Use of Antihistamine s: No If yes: Vial Test Change in medications: No If yes ?? Increase in asthma symptoms If yes, inhaler use: Reaction to last injections: No If yes: ?? Allergy Symptoms: Other: ?? Missed: Dose Aware of Vial Test Notes:?? [email or web address] Not available 04/20/2024 12:09:53 04/27/2024 04/27/2024 Visit With: Leatha Katz Use of Antihistamine s: No If yes: Vial Test Change in medications: No If yes ?? Increase in asthma symptoms If yes, inhaler use: Reaction to last injections: No If yes: ?? Allergy Symptoms: Other: ??has liquid coming down from ears, he thinks its the allergy shots causing this Missed: Dose Aware of Vial Test Notes:?? [email or web address] Not available 04/27/2024 09:50:29 05/04/2024 05/04/2024 Visit With: Dayron Avlarez RN Use of Antihistamine s: Yes If yes: Vial Test Change in medications: No If yes ?? Increase in asthma symptoms No Asthma Hx If yes, inhaler use: Reaction to last injections: No If yes: ?? Allergy Symptoms: Other: ?? Missed: Dose Aware of Vial Test Yes Notes:?? [email or web address] Not available 05/04/2024 10:17:50 05/11/2024 05/11/2024 Visit With: Dayron Alvarez RN Use of Antihistamine s: No If yes: Vial Test Yes Change in medications: No If yes ?? Increase in asthma symptoms If yes, inhaler use: Reaction to last injections: No If yes: ?? Allergy Symptoms: Other: ?? Missed: Dose Aware of Vial Test Notes:?? [email or web address] Not available 05/11/2024 10:31:30 Plan of [...] Sensorine ural hearing loss of bilateral ears 339328311 Active 2022 Sensorine ural hearing loss, bilateral ; Note: Date Diagnosed : 3 12:42 PM (H90.3) Not Available [facility] 4 03:22:37 Allergic rhinitis caused by pollen 67302490 Active 2022 Allergic rhinitis due to pollen; Note: Date Diagnosed : 3 12:42 PM (J30.1) Not Available [facility] 4 03:22:37 Perennial allergic rhinitis 883295754 Active 2023 DARIAN ORTA, [place] [address], [facility] [place], [address] , [facility] - [facility] 15:57:22 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 28261037324 9109 Active 2023 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; Note: Date Diagnosed : 05/16/2023 10:05 AM (J30.81) Not Available [facility] 03:22:37 Allergic rhinitis 55745122 Active 2023 Allergic rhinitis: Due to other [...] ; Start Date : 4 Not Available [facility] 03:22:37 Bilateral disorder of Eustachia n tubes 90644296339 08471 Active 2023 ROBIN JAMA PA-C [address], [place], [address] , [facility] - [facility] 4 09:40:32 Bilateral tinnitus 93463741663 02 Active 2023 MARY ALVARES [address], [place], [place], [address] , [facility] - [facility] 4 12:55:53 Impacted cerumen of bilateral ears 18943569943 95435 Active 2023 DOMINIC CALVILLO MD [address],[facility], [place], [address] , [facility] - [facility] 4 13:19:34 Dysfuncti on of bilateral eustachia n tubes 81585039405 Active 2023 DOMINIC CALVILLO MD [address],[facility], [place], [place], [address] , [facility] - [facility] 4 13:19:39 Seasonal allergic rhinitis 562054153 Active 2023 DOMINIC CALVILLO MD [address], [place], [place], [address] , [facility] - [facility] 4 13:19:45 Problem Notes None recorded. Procedures Surgical History Date Name Laterality Status Provider Name and Address Organization Details Recorded Time 05/11/19 25 Allergy Immunotherapy Injections completed DARIAN BRENNER Kirk [address], [place], [address], [facility] - [facility] 05/11/2024 10:31:23 05/04/19 25 Allergy Immunotherapy Injections completed DAYRON ALVAREZ RN [address], [place], [address], [place] [facility] 05/04/2024 10:17:40 04/27/19 25 Allergy Immunotherapy Injections completed ОЛЬГА COOPER [address], [place], [address], [place] [facility] 04/27/2024 09:49:38 04/20/19 25 Allergy Immunotherapy Injections completed DARIAN BRENNER RMKirk [address], [place], [address], [place] [facility] 04/20/2024 12:09:44 04/13/20 24 Allergy Immunotherapy Injections completed DAYRON ALVAREZ RN [address] [place] [address], [address], [place] [facility] 04/13/2024 10:01:46 04/06/20 24 Allergy Immunotherapy Injections completed DAYRON ALVAREZ RN [address] [place] [address], [address], [place] [facility] 04/06/2024 09:57:36 03/30/20 24 Allergy Immunotherapy Injections completed ОЛЬГА COOPER [address] [place] [address], [address], [place] [facility] 03/30/2024 11:23:22 03/23/20 24 Allergy Immunotherapy Injections completed DARIAN BRENNER RMKirk [address] [place] [address], [address], [place] [facility] 03/23/2024 11:01:51 03/16/20 24 Allergy Immunotherapy Injections completed DAYRON ALVAREZ RN [address] [place] [address], [address], [place] [facility] 03/16/2024 10:18:10 03/09/20 24 Allergy Immunotherapy Injections completed DARIAN BRENNER RMKirk [address], [place], [address], [place] [facility] 03/09/2024 10:08:00 03/02/20 24 Allergy Immunotherapy Injections completed DAYRON ALVAREZ RN 100 [facility],[address], [address], [place] [facility] 03/02/2024 10:40:15 02/24/20 24 Allergy Immunotherapy Injections completed DARIAN BRENNER [facility] 100 [facility],[address], [address], [place] [facility] 02/24/2024 10:02:16 02/17/20 24 Allergy Immunotherapy Injections completed INES COOPER 100 [facility],[address], [address], [place] [facility] 02/17/2024 09:51:14 02/10/20 24 Allergy Immunotherapy Injections completed DAYRON ALVAREZ RN 100 [facility],[address], [address], [place] [facility] 02/10/2024 11:06:13 02/03/20 24 Allergy Immunotherapy Injections completed LEATHA KATZ [address], [address], [facility] - [facility] 02/03/2024 09:51:56 01/27/20 24 Allergy Immunotherapy Injections completed DARIAN BRENNER [address], [address], [facility] - [facility] 01/27/2024 10:59:58 01/23/20 24 Cerumen removal with microscope bilateral completed DOMINIC CALVILLO MD 100 [facility],[address], [address], [facility] - [facility] 01/23/2024 13:19:27 01/23/20 24 Air & Speech Audio with Tymps ([id number], [id number] & [id number]) completed MARY ALVARES 100 [facility],[address], [address], [facility] - [facility] 01/23/2024 12:55:38 01/21/20 24 Allergy Immunotherapy Injections completed DAYRON ALVAREZ RN 100 [facility],[address], [address], [place] [facility] 01/21/2024 11:35:49 01/13/20 24 Allergy Immunotherapy Injections completed DARIAN BRENNER RMA [address], [place], [address], [place] [facility] 01/13/2024 10:24:18 01/06/20 24 Allergy Immunotherapy Injections completed DARIAN BRENNER RMA [address], [place], [address], [place] [facility] 01/06/2024 10:51:00 12/30/19 24 Allergy Immunotherapy Injections completed ОЛЬГА COOPER [address], [place], [address], [place] [facility] 12/30/2023 09:55:01 12/16/19 24 Allergy Immunotherapy Injections completed ОЛЬГА COOPER [address], [place], [address], [place] [facility] 12/16/2023 10:17:29 12/08/19 24 Allergy Immunotherapy Injections completed DAYRON ALVAREZ RN [address] [place] [address], [address], [place] [facility] 12/08/2023 10:45:14 12/02/19 24 Allergy Immunotherapy Injections completed ОЛЬГА COOPER [address] [place] [address], [address], [place] [facility] 12/02/2023 09:31:58 11/25/19 24 Allergy Immunotherapy Injections completed DAYRON ALVAREZ RN [address] [place] [address], [address], [place] [facility] 11/25/2023 11:00:52 11/18/19 24 Allergy Immunotherapy Injections completed ОЛЬГА COOPER [address], [place], [address], [place] [facility] 11/18/2023 09:45:51 11/11/19 24 Allergy Immunotherapy Injections completed DAYRON ALVAREZ RN [address], [place], [address], [place] [facility] 11/11/2023 10:20:54 11/04/19 24 Allergy Immunotherapy Injections completed DAYRON ALVAREZ RN [address], [place], [address], [place] [facility] 11/04/2023 11:15:13 10/28/19 24 Allergy Immunotherapy Injections completed DARIAN BRENNER RMA [address], [place], [address], [place] [facility] 10/28/2023 08:42:57 10/21/19 24 Allergy Immunotherapy Injections completed INES COOPERA [address], [place], [address], [place] [facility] 10/21/2023 12:54:16 10/14/19 24 Allergy Immunotherapy Injections completed ОЛЬГА COOPER [address] [place] [address], [address], [place] [facility] 10/14/2023 10:26:23 10/07/19 24 Allergy Immunotherapy Injections completed INES COOPERA [address], [place], [address], [place] [facility] 10/07/2023 10:05:18 09/30/19 24 Allergy Immunotherapy Injections completed DARIAN BRENNER RMA [address], [place], [address], [place] [facility] 09/30/2023 09:57:23 09/23/19 24 Allergy Immunotherapy Injections completed DARIAN BRENNER RMA [address], [place], [address], [place] [facility] 09/23/2023 10:12:31 09/16/19 24 Allergy Immunotherapy Injections completed DARIAN BRENNER RMA [address], [place], [address], [place] [facility] 09/16/2023 13:57:16 09/09/19 24 Allergy Immunotherapy Injections completed INES COOPERA [address], [place], [address], [facility] - [facility] 09/09/2023 09:40:09 09/02/19 24 Allergy Immunotherapy Injections completed [facility] MAR[facility], [facility] [address], [address], [facility] 09/02/2023 09:51:09 08/26/19 24 Allergy Immunotherapy Injections completed [facility] [address], [address], [facility] - [facility] 08/26/2023 15:58:16 Imaging Results None recorded. Procedure Notes None recorded. Medical Equipment None Reported. Allergies No known drug allergies Medications Name Sig Start Date Stop Date Status Note LastModified by Organization Details LastModified Time Prescript ion - Prior Authoriza tion Request 12/07 completed Script Copy/Tierney or Auth^Scr ipt Copy/Tierney or Auth_201 [id number] Not Available Not Available Not Available prednison [...] 24 hr 02/14 completed Medicati on ID: [id number] B rand Name: metoprol ol succinat e Send Method: E-Prescr ibed Sub s Allowed: subs OK Medic ationGen ericName : metoprol ol succinat e Not Available Not Available Not Available docusate calcium 240 mg capsule TAKE 1 CAPSULE BY MOUTH TWICE DAILY NEEDED active Not Available Not Available No t Available carvedilo l 3.125 mg tablet 02/14 completed Medicati on ID: [id number] B rand Name: carvedil ol Send Method: E-Prescr ibed Sub s Allowed: subs OK Medic ationGen ericName : carvedil ol Not Available Not Available Not Available lorazepam 0.5 mg tablet TAKE 1 TABLET BY MOUTH AT BEDTIME NEEDED FOR INSOMNIA OR ANXIETY 12/07 completed Not Available Not Available Not Available tamsulosi n 0.4 mg capsule 04/01 completed Medicati on ID: [id number] B rand Name: ricardo in Send Method: E-Prescr ibed Sub s [...] as needed 2023 active Medicati on ID: [id number] D uration Value: 1 Brand Name: EpiPen 2-Chester Se nd Method: E-Prescr ibed Sub s Allowed: subs OK Medic ationGen ericName : EpiPen 2-Chester Not Available Not Available Not Available Linzess 290 mcg capsule TAKE 1 CAPSULE BY MOUTH EVERY DAY NEEDED active Not Available Not Available No t Available Nasacort 55 mcg nasal spray aerosol 12/07 completed Medicati on ID: [id number] D uration Value: 30 Brand Name: Nasacort [...] SNOMED-CT Code Diagnosis ICD10 Code Diagnosis Note 251 NETTIE GOLDBERG MD Allergy [address] [place] [address],[address] [place] [place] [address] 08/26/2023 13:15:43 09/02/2023 09:03:05 Allergic rhinitis caused by pollen 36752080 J30.1 Perennial allergic rhinitis 012302185 J30.89 932 NETTIE GOLDBERG MD Allergy [address] [place] [address],[address] [place] [address] 09/02/2023 09:07:19 09/02/2023 10:12:01 Perennial allergic rhinitis 122757568 J30.89 1606 LEATHA KATZ [facility] Allergy [address] [place] [address],[place] [address] [place] [address] 09/09/2023 09:17:15 09/09/2023 11:57:39 Perennial allergic rhinitis 494919335 J30.89 2704 [facility] [address] [place] [address],[place] [address] [place] [address] 09/16/2023 13:45:15 09/16/2023 16:08:18 Perennial allergic rhinitis 512309142 J30.89 3550 [facility] [address] [place] [address],[place] [address] [place] [address] 09/23/2023 09:44:39 09/23/2023 10:27:09 Perennial allergic rhinitis [id number] J30.89 4474 [facility] [address] [place] [address],[address] [place] [address] 09/30/2023 09:35:43 09/30/2023 13:25:11 Perennial allergic rhinitis [id number] J30.89 5444 LEATHA KATZ [facility] Allergy [address] [place] [address],[place] [address] [place] [address] 10/07/2023 09:40:56 10/07/2023 13:10:49 Perennial allergic rhinitis 797360398 J30.89 6290 LEATHA KATZ [facility] Allergy [address] [place] [address],[place] [place] [address] 10/14/2023 09:17:24 10/14/2023 11:16:42 Perennial allergic rhinitis 491744131 J30.89 7072 LEATHA KATZ, [facility] Allergy [address] [place] [address], [address] [place] [address] 10/21/2023 08:42:07 10/21/2023 14:33:12 Perennial allergic rhinitis 559572430 J30.89 7966 DARIAN ORTA, [facility] Allergy [address] [place] [address], [address] [place] [address] 10/28/2023 08:14:53 10/29/2023 13:02:38 Perennial allergic rhinitis 053466899 J30.89 9060 DAYRON ALVAREZ RN Allergy [address] [place] [address] [address] [place] [address] 11/04/2023 11:14:32 11/04/2023 11:16:13 Perennial allergic rhinitis 504301872 J30.89 [id number] DAYRON ALVAREZ RN Allergy [address] [place] [address], [address] [place] [address] 11/11/2023 10:20:14 11/11/2023 10:23:35 Perennial allergic rhinitis [id number] J30.89 [id number] LEATHA KATZ, [facility] Allergy [address] [place] [address], [address] [place] [address] 11/18/2023 09:18:07 11/18/2023 11:09:46 Perennial allergic rhinitis 962700114 J30.89 [id number] DAYRON ALVAREZ RN Allergy [address] [place] [address], [address] [place] [address] 11/25/2023 09:11:20 11/25/2023 11:02:30 Perennial allergic rhinitis 607872452 J30.89 Allergic rhinitis 777947 04 J30.9 [id number] LEATHA KATZ, [facility] Allergy [address] [place] [address],[place] [address] [address] [place] [address] 12/02/2023 09:10:53 12/02/2023 11:07:40 Perennial allergic rhinitis 588374346 J30.89 [id number] NETTIE GOLDBERG MD [facility] [address] [place] [address] 12/08/2023 09:09:38 12/08/2023 09:33:11 Allergic rhinitis 36505250 J30.9 Bilateral disorder of Eustachian tubes [id number] 467079 H69.93 [id number] DAYRON ALVAREZ RN Allergy [address] [place] [address], [place] [address] 12/08/2023 10:43:05 12/08/2023 11:01:34 Perennial allergic rhinitis 369133040 J30.89 71214 LEATHA KATZ [address] [place] [address] 12/16/2023 10:15:31 12/16/2023 13:48:04 Perennial allergic rhinitis 198739454 J30.89 50038 LEATHA KATZ [address] [place] [address] 12/30/2023 09:12:40 12/30/2023 11:11:13 Perennial allergic rhinitis 489799762 J30.89 92438 [facility] Allergy [address] [place] [address], [place] [address] 01/06/2024 10:23:32 01/06/2024 10:51:29 Perennial allergic rhinitis 032071153 J30.89 51050 [facility] Allergy [address] [place] [address], [place] [address] 01/13/2024 09:16:01 01/13/2024 10:24:50 Perennial allergic rhinitis 591998139 J30.89 [id number] DAYRON ALVAREZ RN Allergy [address] [place] [address], [place] [address] 01/21/2024 09:19:35 01/21/2024 11:38:50 Perennial allergic rhinitis 182784662 J30.89 [id number] DOMINIC CALVILLO MD [facility] [address] [place] [address] 01/23/2024 12:14:53 01/23/2024 13:26:27 Sensorineural hearing loss of bilateral ears 005005562 H90.3 [facility]:{{Norm al* Normal through 2 kHz Mild M oderate Mo derately-s evere Felicia re Profoun d}} {{hearing sloping to a mild slopi ng to a moderate s loping to moderately severe slo ping to severe* sl oping to profound f lat high frequency low frequency mid frequency cookie bite casper curve}} {{with sen sorineural hearing loss with* cond uctive hearing loss with mixed hearing loss with}} {{excellen t good* fa ir poor no measurable }} word recognitio n.Left ear:{{Norm al* Normal through 2 kHz Mild M oderate Mo derately-s evere Felicia re Profoun d}} {{hearing sloping to a mild slopi ng to a moderate s loping to moderately severe* sl oping to severe slo ping to profound f lat high frequency low frequency mid frequency cookie bite casper curve}} {{with sen sorineural hearing loss with* cond uctive hearing loss with mixed hearing loss with}} {{excellen t good* fa ir poor no measurable }} word recognitio n. Tympanomet ry:Right Ear:{{Type A* Type As Type Ad Type C Type C, shallow & rounded Ty pe B Type B with large volume Cou ld not maintain a hermetic seal}}Left Ear:{{Type A* Type As Type Ad Type C Type C, shallow & rounded Ty pe B Type B with large volume Cou ld not maintain a hermetic seal}} will arrange hearing aid evaluation Impacted c erumen of bilateral ears [id number] 447844 H61.23 Recurrent Cerumen Impactions : Ears were meticulous ly cleaned bilaterall y today with a curette and suction. The patient tolerated this well and will follow up for repeat debridemen t per routine. Dysfunctio n of bilateral eustachian tubes [id number] 174362 H69.93 allergy related ETD is likely the reason for his blocked ear sensation Seasonal a llergic rhinitis 926814336 J30.2 will prescribe oralia. stop claritin. continue flonase. continue SCIT. [id number] DARIAN ORTA, RMA Allergy 100 [facility],[place] [address] [place] [address] 01/27/2024 10:30:43 01/27/2024 11:00:57 Perennial allergic rhinitis [id number] J30.89 [id number] LEATHA STERLING [facility] Allergy [address] [facility],[place] [place] [address] 02/03/2024 09:35:10 02/03/2024 09:52:19 Perennial allergic rhinitis 190085872 J30.89 [id number] DAYRON ALVAREZ RN Allergy [address] [place] [address],[place] [place] [address] 02/10/2024 10:12:31 02/10/2024 11:06:45 Perennial allergic rhinitis [id number] J30.89 [id number] NEMO ROGERS, [place]ARY [place] 100 [facility], [address] [place] [address] 02/10/2024 14:35:29 02/10/2024 16:54:46 Sensorineural hearing loss of bilateral ears 565664231 H90.3 Patient came with: selfHis is in a group home. Demos used: Infinio 90R Patient motivation : He would like to hear better and stop saying what . He noticed a big difference with the demos in and he liked them. Purchased? Ryann has a benefit at [facility]. He is going to reach out to the insurance and find out where to go. He is curious how much he will have to pay if he goes there. He knows to call here if he decides to get hearing aids from me. Ordered:?g raphite or silverM2 r/l looked goodUsed Medium vented domes [id number] LEATHA STERLING [facility] Allergy [address] [facility],[place] [address] [place] [address] 02/17/2024 09:31:11 02/17/2024 09:53:23 Perennial allergic rhinitis [id number] J30.89 [id number] DARIAN ORTA, A Allergy [address] [facility],[place] [address] [place] [address] 02/24/2024 09:46:24 02/24/2024 10:03:19 Perennial allergic rhinitis 141547690 J30.89 [id number] DAYRON ALVAREZ RN Allergy [address] [place] [address],[place] [address] [place] [address] 03/02/2024 10:13:10 03/02/2024 10:41:12 Perennial allergic rhinitis 412588930 J30.89 [id number] [facility] Allergy [address] [place] [address], [address] [place] [address] 03/09/2024 09:28:58 03/09/2024 10:09:41 Perennial allergic rhinitis [id number] J30.89 [id number] DAYRON ALVAREZ RN Allergy [address] [place] [address], [address] [place] [address] 03/16/2024 09:36:50 03/16/2024 10:18:42 Perennial allergic rhinitis [id number] J30.89 [id number] [facility] Allergy [address] [place] [address], [address] [place] [address] 03/23/2024 10:21:05 03/23/2024 11:02:31 Perennial allergic rhinitis 189151749 J30.89 [id number] [facility] [address] [place] [address],[place] [address] [place] [address] 03/30/2024 11:22:15 03/30/2024 11:23:49 Perennial allergic rhinitis [id number] J30.89 [id number] DAYRON ALVAREZ RN Allergy [address] [place] [address],[place] [place] [address] 04/06/2024 09:35:30 04/06/2024 09:57:52 Perennial allergic rhinitis [id number] J30.89 [id number] DAYRON ALVAREZ RN Allergy [address] [place] [address],[address] [place] [address] 04/13/2024 09:47:44 04/13/2024 10:02:00 Perennial allergic rhinitis [id number] J30.89 [id number] [facility] Allergy [address] [place] [address],[place] [address] [place] [address] 04/20/2024 09:13:31 04/20/2024 12:10:23 Perennial allergic rhinitis [id number] J30.89 [id number] LEATHA KATZ, A Allergy 100 [facility], [address] [facility] [place] [address] 04/27/2024 09:42:24 04/27/2024 09:50:44 Perennial allergic rhinitis [id number] J30.89 [id number] DAYRON ALVAREZ RN Allergy [address] [place] [address], [address] [facility] [place] [address] 05/04/2024 10:07:29 05/04/2024 10:31:50 Perennial allergic rhinitis [id number] J30.89 [id number] DARIAN BRENNER, A Allergy [address] [place] [address], [address] [facility] [place] [address] 05/11/2024 08:50:16 05/11/2024 10:49:00 Perennial allergic rhinitis [id number] J30.89 Health Concerns Section Related Observation LastModified by Organization Detai ls LastModified Time None Recorded Concern Status LastModified by Organization Details LastModified Time None Recorded Advance Directives Directive None Recorded Payers Encounter Date Sequence Insurance Name Policy Number Policy Hussein Covered Member ID Hussein Member ID Guarantor Name 04/13/2024 1 [facility] Chuck Jr Capellan Jr [id number] 1 Chuck Jr Capellan 04/20/2024 1 [facility] Chuck Jr Capellan Jr [id number] 1 Chuck Jr Capellan 04/27/2024 1 [facility] Chuck Jr Capellan Jr [id number] 1 Chuck Jr Capellan 05/04/2024 1 [facility] Capellan Jr [id number] 1 Chuck Jr Capellan 05/11/2024 1 [facility] Chuck Jr Capellan Jr [id number] 1 Chuck Jr Capellan
== END 2024-05-11 12:48 | disposition home or self-care (01) ==
LOC: HO.CT 12:47
PROVIDERS: PCP Internal Medicine; Visit Provider Hospitalist
DX: R91.8 Other nonspecific abnormal finding of lung field (principal)
CPT/HCPCS: 71250

== ENCOUNTER → 2024-05-11 12:48 | Outpatient (BNV) | payer MEDICARE, SELFPAY | PROVIDERS: PCP Internal Medicine; Visit Provider Radiology Diagnostic Radiology | DX: I25.10 Atherosclerotic heart disease of native coronary artery without angina pectoris (principal); J92.9 Pleural plaque without asbestos; R91.1 Solitary pulmonary nodule; K44.9 Diaphragmatic hernia without obstruction or gangrene | CPT/HCPCS: 71250 ==

== ENCOUNTER 2024-05-26 11:24 | Outpatient (AMB) | payer MEDICARE, SELFPAY ==
[2024-05-26 11:27] VITALS: BP 132/66; PULSE 76; O2SAT 99; BMI 24.7
--- NOTE | 2024-05-26 11:27 | A.OFFVIS_ITS ---
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 He also has underlying obstructive sleep apnea. He did have a CT scan of the chest done April of this year. I personally reviewed the CT scan with him. His pulmonary nodules very small and stable. 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 He did not use any mask or any protection while he was working with the asbestos unfortunately. He does have the pulmonary nodules in the upper to be relatively stable. They will continue to monitor. In regards to sleep apnea the patient did have a sleep study in the past and does have sleep apnea. He did he have a CPAP but he stopped using about 2 years ago. In addition to that he CT scan of the chest will be scheduled for April of 2020 to follow up as pulmonary nodules. He does follow up with thoracic surgery as well. 06/08/2020 patient is here for pulmonary follow-up visit. The patient overall is doing well. He continues to have some shortness of breath with activity but minimal in nature. No significant cough. He denies any chest pains. He did have a CT scan of the chest back in April 2020 demonstrating stable pleural plaques consistent with his exposure to asbestos and also stable pulmonary nodules which is reassuring. In the meantime again we talked about his underlying obstructive sleep apnea. He had minimal disease back when he had a sleep study back in the fall 2019. At this point he would like to hold off on CPAP at this time. The patient did not have any significant drowsiness the morning. He appears to be sleeping well. Therefore, will reassess during the next visit in the fall patient may need to have a repeat sleep study then if he feels that he is having any worsening daytime drowsiness. In regards of his underlying pulmonary nodules in asbestos related lung disease, will plan to follow-up with a CT scan of the chest in 1 year. 04/27/2021 the patient is here for a pulmonary follow-up visit. Overall the patient has been doing well. Has minimal cough. Does have some shortness of breath that is mild in severity. He also complains of intermittent chest discomfort. Currently he does not have any. We did review her CT scan of the chest that he had recently. It appears that he does have the asbestos related lung disease with lung plaques. In addition to that he has pulmonary nodules. That has not changed which is reassuring. More significantly is that he has a 4.4 centimeter ascending aortic aneurysm. This has not changed either which is reassuring. That being said he needs to follow up closely with his primary care doctor. We did talk about the importance of controlling his blood pressure and heart rate he does take medication for that. Otherwise will follow-up in [address] with a [address] scan. 05/01/2022 the patient is here for pulmonary follow-up visit. The patient is doing well from a respiratory status. Denies any significant cough or shortness of breath. Sometimes he does complaint of bilateral back discomfort primarily in the lower to mid back area. Denies any pleuritic discomfort. He does not feel a right now. Usually moderate severity. He did have a recent CT scan of the chest that we personally discussed in the office. It appears that his pulmonary nodules are stable. In addition to that he has asbestos related lung disease that does not appear to be getting worse. He does have some changes to his back in I did give him information about that as that may be the cause of the back pain. She is going to follow up with primary care doctor for that. Otherwise will follow-up 1 more year for residual CT scans in view of his pulmonary nodules and is high risk for cancer with the asbestos related lung disease. If the nodules are stable in another year's time. 04/22/2023 the patient is here for pulmonary follow-up visit. Overall the patient has been doing fairly well still complaining of that back discomfort. She also gets more internal. Although does not appear to be pleuritic in nature. Exacerbated by snow shoveling. Denies any rashes in the area. We did review his CT scan of the chest that he had back in March 2023 at [facility]. It appears that he does have asbestos plaques although does unlikely causing discomfort. The did not appear to be changing either. Pulmonary nodules are stable. He does have a 4.6 cm fusiform ascending aortic aneurysm that has been well documented demonstrating stability. Still, he should have somebody following that and I will make sure to send the information over to his vascular surgeon and also make it clear in order for him to also follow-up with Primary Care Cardiology P for now although no evidence of any changes in his CT scans which is reassuring. Because of the ongoing back pain will go ahead and treat him with anti-inflammatory medications for 5-10 days. Will follow-up in 6 months. 05/26/2024 the patient is here for pulmonary follow-up visit. Overall he is doing about the same. Still having back discomfort moderate severity. Denies any pleuritic discomfort. Does concerned him though. He was given a prescription for Celebrex but it does not look like he took it. He also complains of being tired. Feels like his sleep is fragmented because going to the bathroom a lot. Therefore, we had given some prednisone the last time it did help him. Therefore will do a shorter course at this time provide some relief then I did encourage him to try the Celebrex. In addition to that will provide him some assistance with sleep and given trazodone. He already tried and failed [id number] melatonin. Hopefully we can get better quality sleep and then have him function better during the daytime. We did review his CT scan of the chest that he just had 05/11/2024 was personally by me. His asbestos related lung disease is the same and he has pulmonary nodules are stable. No evidence of any parenchymal or pleural based disease that could explain his back pain. The aneurysms are also stable. Her follow-up with ca rdiology and primary care without. Will follow-up in 6 months to see how his progress with the medication. Otherwise will plan to repeat a CT scan in a year's time. [facility] Medical History Ascending aortic aneurysm GILLIAN (obstructive sleep apnea) Pulmonary nodules Asbestos-induced pleural plaque Surgical History Cataract of left eye Hx of colonoscopy Family History Father No problems noted. Social History Patient Tobacco Use Status: Never used Tobacco Review of Systems Const Denies daytime sleepiness, Denies night sweats and Denies stops breathing during sleep ENT Denies change in voice, Denies lip swelling, Denies mouth pain, Reports nasal congestion, Reports nasal discharge and Denies tongue swelling Card Reports chest pain and Reports dyspnea on exertion Resp Reports cough and Reports dyspnea on exertion GI Denies abdominal pain Musc Denies no additional complaints Neuro Denies Neuro-related abnormal movements Psych Denies no additional complaints Timothy/Lymph Denies easy bleeding and Denies lymphadenopathy Aller/Immun Denies lip swelling and Denies tongue swelling Physical Exam Vital Signs: Last Vital Signs Pulse 76 05/26/24 11:27 BP 132/66 05/26/24 11:27 Pulse Ox 99 05/26/24 11:27 Oxygen Delivery Method Room Air 05/26/24 11:27 BMI result Body Mass Index 24.7 Const General: alert HEENT General nose exam: Abnormal external nose present and Nasal discharge present Neck Neck: Yes normal visual inspection, Yes full ROM and Yes no lymphadenopathy Chest Chest palpation & inspection: normal inspection of the chest Resp Effort & Inspection: normal respiratory effort Auscultation: clear to auscultation bilaterally Cardio Rate: regular rate Rhythm: regular rhythm Heart sounds: S1 normal heart sound present and S2 normal heart sound present GI Palpation (GI): Soft to palpation and nontender Auscultation: normal bowel sounds Back/Spine/Pelvis Back: back tenderness Extrem General: Yes no clubbing, cyanosis or edema Assessment & Plan Assessment & Plan (1) GILLIAN (obstructive sleep apnea): Code(s): G47.33 - Obstructive sleep apnea (adult) (pediatric) Category: Medical (2) Pulmonary nodules: Code(s): R91.8 - Other nonspecific abnormal finding of lung field Category: Medical (3) Asbestos-induced pleural plaque: Code(s): J92.0 - Pleural plaque with presence of asbestos Category: Medical (4) Ascending aortic aneurysm: Code(s): I71.2 - Thoracic aortic aneurysm, without rupture Category: Medical Qualifiers: Presence of rupture: without rupture Qualified Code(s): I71.21 - Aneurysm of the ascending aorta, without rupture Plan CT chest 1 yr start low dose prednisone taper for back pain/thorac discomfort start Trazodone as needed for sleep F/U 6 months Orders: Orders CT chest wo IV con 1 Year I71.21 - Aneurysm of the ascending aorta, without rupture, R91.8 - Other nonspecific abnormal finding of lung field Medications: New prednisone 20 mg PO DAILY 5 days 5 tabs 0RF trazodone 50 mg PO BEDTIME 30 days PRN 30 tabs 11RF sleep Coding Level of Care Code Est Pt Level 4 (95883) Diagnoses GILLIAN (obstructive sleep apnea) G47.33 Pulmonary nodules R91.8 Asbestos-induced pleural plaque J92.0 Aneurysm of ascending aorta without rupture I71.21 Presence of rupture: without rupture Time Spent (min) 17
--- OUTSIDE RECORDS SUMMARY | 2024-05-26 13:20 | XMS_ITS | Clinical Summary ---
Author Organization [facility] ity Address [address] [place] [address] Care Team Providers Care Computer Technology Instructor Name Role Phone Unavailable Primary Care Provider Unavailabl e Social History Tobacco Use Types Packs/Day Years Used Date Smoking Tobacco: Never Assessed Sex and Gender Information Value Date Recorded Sex Assigned at Not on file Legal Sex Male 4:34 AM EST Gender Identity Not on file Sexual Orientation Not on file Plan of Treatment Health Maintenance Due Date Last Done Comments DTaP,Tdap,and Td Vaccines (1 - Tdap) 1961 Pneumococcal Vaccine: 50+ Ye ars (1 of 1 - PCV) 1992 Zoster Vaccines (1 of 2) 1992 RSV Immunization Patients 60 + Years Old (1 - 1-dose 75+ series) 2017 Cholesterol Screening (Lipid Panel) 03/17/2022 Depression Screening 03/17/2022 Falls Risk Assessment 03/17/2022 Social Influencers of Health Screening 03/17/2022 COVID-19 Vaccine (1 - 2023-2 5 season) 2023 Influenza Vaccine (#1) 2023 [...] patient's age to complete this topic Meningococcal B Vacine Aged Out No lo nger eligible based on patient's age to complete this topic RSV Immunization Patients Un benito 20 months Aged Out No longer eligible b ased on patient's age to complete this topic Varicella Vaccines Aged Out No longer eligible based on patient's age to complete this topic
--- OUTSIDE RECORDS SUMMARY | 2024-05-26 13:20 | XMS_ITS | Data Portability ---
Author Organization [place] - [facility], Allergy Address [address] [place] [address] Care Team Providers Care Trekking Guide Name Role Phone EDELMIRA SUMMERS Primary Care Provider Assessment Encounter Date Assessment Date Assessment LastModified by Organization Details LastModified Time 04/27/2024 04/27/2024 Visit With: Leatha Katz Use [...] Aware of Vial Test Notes:? ? ? [email or web address] Not available 04/27/2024 09:50:29 05/04/2024 05/04/2024 Visit With: Dayron Alvarez RN Use of Antihistamine s: Yes If yes: Vial Test Change in medications: No If yes ? ? ? Increase in asthma symptoms No Asthma Hx If yes, inhaler use: Reaction to last injections: No If yes: ? ? ? Allergy Symptoms: Other: ? ? ? Missed: Dose Aware of Vial Test Yes Notes:? ? ? [email or web address] Not available 05/04/2024 10:17:50 05/11/2024 05/11/2024 [...] Aware of Vial Test Notes:? ? ? [email or web address] Not available 05/11/2024 10:31:30 05/18/2024 05/18/2024 Visit With: Leatha Katz Use of Antihistamine s: Yes If yes: Vial Test Change in medications: No If yes ? ? ? Increase in asthma symptoms If yes, inhaler use: Reaction to last injections: No If yes: ? ? ? Allergy Symptoms: Other: ? ? ? Missed: Dose Aware of Vial Test Notes:? ? ? [email or web address] Not available 05/18/2024 09:57:51 05/25/2024 05/25/2024 Visit With: ОЛЬГА Chatman Use of Antihistamine s: Yes If yes: Vial Test Change in medications: No If yes ? ? ? Increase in asthma symptoms If yes, inhaler use: Reaction to last injections: No If yes: ? ? ? Allergy Symptoms: Other: ? ? ?runny nose Missed: Dose Aware of Vial Test Notes:? ? ? [email or web address] Not available 05/25/2024 09:19:24 Plan of Treatment Reminders Order Date Submit Date Provider Last Modified By Organization Details Last Modified Time Details Appointments - Allergy f-up 6mon 2024 09:15A M ROBIN JAMA PA-C Not available Not available Not available Lab None recorded . Referral None recorded . Procedures None recorded . Surgeries None recorded . Imaging None recorded . Medication Orders None recorded . Patient TargetsNo targets recorded. Patient InstructionsNo instructions recorded. Reason for Referral None Reported. Problems Name Problem SNOMED Code Status Onset Date Resolution Date Notes Provider Name and Address Organization Details Recorded Time Sensorine ural hearing loss of bilateral ears 818914779 Active 2022 Sensorine ural hearing loss, bilateral ; Note: Date Diagnosed : 3 12:42 PM (H90.3) Not Available [facility] 4 03:22:37 Allergic rhinitis caused by pollen 38291647 Active 2022 Allergic rhinitis due to pollen; Note: Date Diagnosed : 3 12:42 PM (J30.1) Not Available [facility] 4 03:22:37 Perennial allergic rhinitis 183349081 Active 2023 DARIAN KORZEC, [address], [address] , [facility] - [facility] 15:57:22 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 77707240783 9109 Active 2023 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; Note: Date Diagnosed : 05/16/2023 10:05 AM (J30.81) Not Available [facility] 03:22:37 Allergic rhinitis 66278848 Active 2023 Allergic rhinitis: Due to other [...] ; Start Date : 4 Not Available [facility] 03:22:37 Bilateral disorder of Eustachia n tubes 21695858420 61614 Active 2023 ROBIN JAMA PA-C [address], [place], [address] , [facility] - [facility] 4 09:40:32 Bilateral tinnitus 32087254730 02 Active 2023 MARY ALVARES [address], [place], [address] , [facility] - [facility] 4 12:55:53 Impacted cerumen of bilateral ears 00713305875 80493 Active 2023 DOMINIC CALVILLO MD [address], [place], [address] , [facility] - [facility] 4 13:19:34 Dysfuncti on of bilateral eustachia n tubes 25795721531 Active 2023 DOMINIC CALVILLO MD [address], [place], [address] , [facility] - [facility] 4 13:19:39 Seasonal allergic rhinitis 152821513 Active 2023 DOMINIC CALVILLO MD [address], [place], [address] , [facility] - [facility] 4 13:19:45 Problem Notes None recorded. Procedures Surgical History Date Name Laterality Status Provider Name and Address Organization Details Recorded Time 05/25/19 25 Allergy Immunotherapy Injections completed ОЛЬГА COOPER [address], [place], [address], [facility] - [facility] 05/25/2024 09:19:03 05/18/19 25 Allergy Immunotherapy Injections completed DARIAN BRENNER, RMA [address], [place], [address], [place] [facility] 05/18/2024 09:57:41 05/11/19 25 Allergy Immunotherapy Injections completed DARIAN BRENNER, RMA [address], [place], [address], [place] [facility] 05/11/2024 10:31:23 05/04/19 25 Allergy Immunotherapy Injections completed DAYRON ALVAREZ RN [address], [place], [address], [place] [facility] 05/04/2024 10:17:40 04/27/19 25 Allergy Immunotherapy Injections completed ОЛЬГА COOPER [address], [place], [address], [place] [facility] 04/27/2024 09:49:38 04/20/19 25 Allergy Immunotherapy Injections completed DARIAN BRENNER, RMA [address], [place], [address], [place] [facility] 04/20/2024 12:09:44 04/13/20 24 Allergy Immunotherapy Injections completed DAYRON ALVAREZ RN [address] [place] [address], [address], [place] [facility] 04/13/2024 10:01:46 04/06/20 24 Allergy Immunotherapy Injections completed DAYRON ALVAREZ RN [address] [facility] [address] [place],[address], [place], [address], [place] [facility] 04/06/2024 09:57:36 03/30/20 24 Allergy Immunotherapy Injections completed ОЛЬГА COOPER [address], [place], [address], [place] [facility] 03/30/2024 11:23:22 03/23/20 24 Allergy Immunotherapy Injections completed DARIAN BRENNER, RMA [address], [place], [address], [place] [facility] 03/23/2024 11:01:51 03/16/20 24 Allergy Immunotherapy Injections completed DAYRON ALVAREZ RN [address], [place], [address], [place] [facility] 03/16/2024 10:18:10 03/09/20 24 Allergy Immunotherapy Injections completed ОЛЬГА CHATMAN [address], [place], [address], [place] [facility] 03/09/2024 10:08:00 03/02/20 24 Allergy Immunotherapy Injections completed DAYRON ALVAREZ RN [address], [place], [address], [place] [facility] 03/02/2024 10:40:15 02/24/20 24 Allergy Immunotherapy Injections completed ОЛЬГА CHATMAN [address], [place], [address], [place] [facility] 02/24/2024 10:02:16 02/17/20 24 Allergy Immunotherapy Injections completed ОЛЬГА COOPER [address] [facility], [place], [address], [place] [facility] 02/17/2024 09:51:14 02/10/20 24 Allergy Immunotherapy Injections completed DAYRON ALVAREZ RN [address] [place] [address], [address], [place] [facility] 02/10/2024 11:06:13 02/03/20 24 Allergy Immunotherapy Injections completed ОЛЬГА COOPER [address] [place] [address], [address], [place] [facility] 02/03/2024 09:51:56 01/27/20 24 Allergy Immunotherapy Injections completed DARIAN BRENNER RMKirk [address] [facility], [place], [address], [place] [facility] 01/27/2024 10:59:58 01/23/20 24 Cerumen removal with microscope bilateral completed DOMINIC CALVILLO MD [address], [place], [address], [place] [facility] 01/23/2024 13:19:27 01/23/20 24 Air & Speech Audio with Tymps (60297, 86277 & 07405) completed MARY ALVARES [address] [place] [address], [address], [place] [facility] 01/23/2024 12:55:38 01/21/20 24 Allergy Immunotherapy Injections completed DAYRON ALVAREZ RN [address], [address], [place] [facility] 01/21/2024 11:35:49 01/13/20 24 Allergy Immunotherapy Injections completed DARIAN BRENNER RMA [address], [address], [place] [facility] 01/13/2024 10:24:18 01/06/20 24 Allergy Immunotherapy Injections completed DARIAN BRENNER A [address] [facility] [place],[address], [address], [place] [facility] 01/06/2024 10:51:00 12/30/19 24 Allergy Immunotherapy Injections completed ОЛЬГА COOPER [address] [facility] [place],[address], [address], [place] [facility] 12/30/2023 09:55:01 12/16/19 24 Allergy Immunotherapy Injections completed ОЛЬГА COOPER [address], [address], [place] [facility] 12/16/2023 10:17:29 12/08/19 24 Allergy Immunotherapy Injections completed DAYRON ALVAREZ RN [address] [facility] [place],[address] [place] [address], [address], [place] [facility] 12/08/2023 10:45:14 12/02/19 24 Allergy Immunotherapy Injections completed ОЛЬГА COOPER [address] [place] [address], [address], [place] [facility] 12/02/2023 09:31:58 11/25/19 24 Allergy Immunotherapy Injections completed DAYRON ALVAREZ RN [address] [facility] [place],[address], [place], [address], [place] [facility] 11/25/2023 11:00:52 11/18/19 24 Allergy Immunotherapy Injections completed ОЛЬГА COOPER [address], [place], [address], [place] [facility] 11/18/2023 09:45:51 11/11/19 24 Allergy Immunotherapy Injections completed DAYRON ALVAREZ RN [address], [place], [address], [place] [facility] 11/11/2023 10:20:54 11/04/19 24 Allergy Immunotherapy Injections completed DAYRON ALVAREZ RN [address], [place], [address], [place] [facility] 11/04/2023 11:15:13 10/28/19 24 Allergy Immunotherapy Injections completed DARIAN BRENNER RMKirk [address] [place] [address], [address], [place] [facility] 10/28/2023 08:42:57 10/21/19 24 Allergy Immunotherapy Injections completed ОЛЬГА COOPER [address], [place], [address], [place] [facility] 10/21/2023 12:54:16 10/14/19 24 Allergy Immunotherapy Injections completed ОЛЬГА COOPER [address], [place], [address], [place] [facility] 10/14/2023 10:26:23 10/07/19 24 Allergy Immunotherapy Injections completed ОЛЬГА COOPER [address], [place], [address], [place] [facility] 10/07/2023 10:05:18 09/30/19 24 Allergy Immunotherapy Injections completed DARIAN BRENNER RMA [address], [place], [address], [place] [facility] 09/30/2023 09:57:23 09/23/19 24 Allergy Immunotherapy Injections completed DARIAN BRENNER RMA [address], [place], [address], [facility] - [facility] 09/23/2023 10:12:31 09/16/19 24 Allergy Immunotherapy Injections completed [facility], [address], [address], [facility] - [facility] 09/16/2023 13:57:16 09/09/19 24 Allergy Immunotherapy Injections completed LEATHA KATZ, [address], [address], [facility] - [facility] 09/09/2023 09:40:09 09/02/19 24 Allergy Immunotherapy Injections completed [facility] [address], [address], [facility] - [facility] 09/02/2023 09:51:09 08/26/19 24 Allergy Immunotherapy Injections completed [address], [address], [facility] - [facility] 08/26/2023 15:58:16 Imaging Results None recorded. Procedure Notes None recorded. Medical Equipment None Reported. Allergies No known drug allergies Medications Name Sig Start Date Stop Date Status Note LastModified by Organization Details LastModified Time Prescript ion - Prior Authoriza tion Request 12/07 completed Script Copy/Tierney or Auth^Scr ipt Copy/Tierney or Auth_201 [id number] Not Available Not Available Not Available prednison [...] 24 hr 02/14 completed Medicati on ID: [id number] B rand Name: metoprol ol succinat e Send Method: E-Prescr ibed Sub s Allowed: subs OK Medic ationGen ericName : metoprol ol succinat e Not Available Not Available Not Available docusate calcium 240 mg capsule TAKE 1 CAPSULE BY MOUTH TWICE DAILY NEEDED active Not Available Not Available No t Available carvedilo l 3.125 mg tablet 02/14 completed Medicati on ID: [id number] B rand Name: carvedil ol Send Method: E-Prescr ibed Sub s Allowed: subs OK Medic ationGen ericName : carvedil ol Not Available Not Available Not Available lorazepam 0.5 mg tablet TAKE 1 TABLET BY MOUTH AT BEDTIME NEEDED FOR INSOMNIA OR ANXIETY 12/07 completed Not Available Not Available Not Available tamsulosi n 0.4 mg capsule 04/01 completed Medicati on ID: [id number] B rand Name: tamsulos in Send Method: [...] as needed 2023 active Medicati on ID: [id number] D uration Value: 1 Brand Name: EpiPen 2-Chester Se nd Method: E-Prescr ibed Sub s Allowed: subs OK Medic ationGen ericName : EpiPen 2-Chester Not Available Not Available Not Available Linzess 290 mcg capsule TAKE 1 CAPSULE BY MOUTH EVERY DAY NEEDED active Not Available Not Available No t Available Nasacort 55 mcg nasal spray aerosol 12/07 completed Medicati on ID: [id number] D uration Value: 30 Brand Name: Nasacort [...] Diagnosis Note 251 NETTIE GOLDBERG MD Allergy [address] [place] [address],[place] 100 [place] [address] 08/26/2023 13:15:43 09/02/2023 09:03:05 Allergic rhinitis caused by pollen 38368495 J30.1 Perennial allergic rhinitis 613450303 J30.89 [id number] NETTIE GOLDBERG MD Allergy [address] [place] [address],[place] [address] [place] [address] 09/02/2023 09:07:19 09/02/2023 10:12:01 Perennial allergic rhinitis 312154801 J30.89 [id number] LEATHA KATZ [facility] Allergy [address] [place] [address],[place] [address] [place] [address] 09/09/2023 09:17:15 09/09/2023 11:57:39 Perennial allergic rhinitis [id number] J30.89 [id number] [facility] Allergy [address] [place] [address],[place] [address] [place] [address] 09/16/2023 13:45:15 09/16/2023 16:08:18 Perennial allergic rhinitis [id number] J30.[address] [facility] All[facility] [address] [place] [address],[place] [address] [place] [address] 09/23/2023 09:44:39 09/23/2023 10:27:09 Perennial allergic rhinitis [id number] J30.89 [id number] DARIAN MARIVEL [facility] Allergy [address] [place] [address],[place] [address] [place] [address] 09/30/2023 09:35:43 09/30/2023 13:25:11 Perennial allergic rhinitis 733690529 J30.89 [id number] LEATHA KATZ, [facility] Allergy [address] [place] [address] [address] [place] [address] 10/07/2023 09:40:56 10/07/2023 13:10:49 Perennial allergic rhinitis 837740710 J30.89 [id number] LEATHA KATZ, [facility] Allergy [address] [place], [place] [address] [address] [place] [address] 10/14/2023 09:17:24 10/14/2023 11:16:42 Perennial allergic rhinitis [id number] J30.89 [id number] LEATHA KATZ, [facility] Allergy [address] [place] [address] 100 [place] [address] 10/21/2023 08:42:07 10/21/2023 14:33:12 Perennial allergic rhinitis [id number] J30.89 [id number] DARIAN ORTA, [facility] Allergy [address] [place] [address] [address] [place] [address] 10/28/2023 08:14:53 10/29/2023 13:02:38 Perennial allergic rhinitis [id number] J30.89 [id number] DAYRON ALVAREZ RN Allergy [address] [place], [place] [address] 100 [place] [address] 11/04/2023 11:14:32 11/04/2023 11:16:13 Perennial allergic rhinitis 803909676 J30.89 [id number] DAYRON ALVAREZ RN Allergy [address] [place] [address] [address] [place] [address] 11/11/2023 10:20:14 11/11/2023 10:23:35 Perennial allergic rhinitis [id number] J30.89 [id number] LEATHA KATZ, [facility] Allergy [address] [place] [address] [address] [place] [address] 11/18/2023 09:18:07 11/18/2023 11:09:46 Perennial allergic rhinitis [id number] J30.89 [id number] DAYRON ALVAREZ RN Allergy [address] [place] [address] [facility] [place], [place] [address] 11/25/2023 09:11:20 11/25/2023 11:02:30 Perennial allergic rhinitis [id number] J30.89 Allergic rhinitis 980891 04 J30.9 [id number] LEATHA KATZ [facility] Allergy [address] [place] [address] 100 [place], [place] [address] 12/02/2023 09:10:53 12/02/2023 11:07:40 Perennial allergic rhinitis 839672203 J30.89 [id number] NETTIE GOLDBERG MD [facility] [address] [place], [place] [address] 12/08/2023 09:09:38 12/08/2023 09:33:11 Allergic rhinitis 39902933 J30.9 Bilateral disorder of Eustachian tubes 1419981015 508890 H69.93 [id number] DAYRON ALVAREZ RN Allergy [address] [place], [place] [address] , [place] [address] 12/08/2023 10:43:05 12/08/2023 11:01:34 Perennial allergic rhinitis [id number] J30.89 [id number] LEATHA KATZ [facility] Allergy [address] [place] [address] [place] [address] 12/16/2023 10:15:31 12/16/2023 13:48:04 Perennial allergic rhinitis [id number] J30.89 [id number] LEATHA KATZ [facility] Allergy [address] [place] [address] [place] , [place] [address] 12/30/2023 09:12:40 12/30/2023 11:11:13 Perennial allergic rhinitis [id number] J30.89 [id number] DARIAN MARIVEL, [facility] Allergy [address] [place] [address] 100 [place] , [place] [address] 01/06/2024 10:23:32 01/06/2024 10:51:29 Perennial allergic rhinitis [id number] J30.89 [id number] [facility], [facility] Allergy [address] [place] [address] 100 [place] [address] 01/13/2024 09:16:01 01/13/2024 10:24:50 Perennial allergic rhinitis 640585100 J30.89 [id number] DAYRON ALVAREZ RN Allergy [address] [place] [address], [place] [address] 01/21/2024 09:19:35 01/21/2024 11:38:50 Perennial allergic rhinitis 859668417 J30.89 [id number] DOMINIC CALVILLO MD [facility] 100 [place] [address] 01/23/2024 12:14:53 01/23/2024 13:26:27 Sensorineural hearing loss of bilateral ears 716875839 H90.3 Audiologic al evaluation results:Ri ght ear:{{Norm al* Normal through 2 kHz Mild [...] evaluation Impacted c erumen of bilateral ears [id number] 633654 H61.23 Recurrent Cerumen Impactions : Ears were meticulous ly cleaned bilaterall y today with a curette and suction. The patient tolerated this well and will follow up for repeat debridemen t per routine. Dysfunctio n of bilateral eustachian tubes 0665445030 125002 H69.93 allergy related ETD is likely the reason for his blocked ear sensation Seasonal a llergic rhinitis 532795397 J30.2 will prescribe oralia. stop claritin. continue flonase. continue SCIT. [id number] DARIAN ORTA, [facility] Allergy 100 [facility],[place] 100 [place] [address] 01/27/2024 10:30:43 01/27/2024 11:00:57 Perennial allergic rhinitis 267503566 J30.89 [id number] LEATHA KATZ [facility] Allergy [address] [place] [address], [place] 100 [place] [address] 02/03/2024 09:35:10 02/03/2024 09:52:19 Perennial allergic rhinitis 582811094 J30.89 [id number] DAYRON ALVAREZ RN Allergy [address] [place] [address], [address] 100 [place] [address] 02/10/2024 10:12:31 02/10/2024 11:06:45 Perennial allergic rhinitis [id number] J30.89 [id number] NEMO ROGERS, MARY [facility] [place] [address] [place] [address], [place] [address] [place] [address] 02/10/2024 14:35:29 02/10/2024 16:54:46 Sensorineural hearing loss of bilateral ears 167842918 H90.3 Patient came with: selfHis is in a alf. Demos used: Infinio 90R Patient motivation : [...] to get hearing aids from me. Ordered:?g marilyn or Paty r/l looked goodUsed Medium vented domes [id number] LEATHA KATZ, [facility] Allergy 100 [facility],[place] [address] [place] [address] 02/17/2024 09:31:11 02/17/2024 09:53:23 Perennial allergic rhinitis 924899991 J30.89 [id number] [facility], A Allergy 100 [facility],[place] [address] [place] [address] 02/24/2024 09:46:24 02/24/2024 10:03:19 Perennial allergic rhinitis 974021538 J30.89 [id number] DAYRON ALVAREZ RN Allergy [address] [place] [address],[place] [address] [place] [address] 03/02/2024 10:13:10 03/02/2024 10:41:12 Perennial allergic rhinitis 951087078 J30.89 [id number] [facility] Allergy 100 [facility],[place] [address] [place] [address] 03/09/2024 09:28:58 03/09/2024 10:09:41 Perennial allergic rhinitis 506708853 J30.89 [id number] DAYRON ALVAREZ RN Allergy [address] [place] [address], [address] [place] [address] 03/16/2024 09:36:50 03/16/2024 10:18:42 Perennial allergic rhinitis 294450588 J30.89 [id number] [facility] Allergy 100 [facility],[place] [address] [place] [address] 03/23/2024 10:21:05 03/23/2024 11:02:31 Perennial allergic rhinitis [id number] J30.89 [id number] LEATHA KATZ, [facility] Allergy 100 [facility],[place] [address] [place] [address] 03/30/2024 11:22:15 03/30/2024 11:23:49 Perennial allergic rhinitis 344122263 J30.89 [id number] DAYRON ALVAREZ RN Allergy [address] [place] [address],[place] [address] [place] [address] 04/06/2024 09:35:30 04/06/2024 09:57:52 Perennial allergic rhinitis [id number] J30.89 [id number] DAYRON ALVAREZ RN Allergy 100 [facility],[place] [address] [place] [address] 04/13/2024 09:47:44 04/13/2024 10:02:00 Perennial allergic rhinitis 473067917 J30.89 [id number] DARIAN ORTA RMA Allergy 100 [facility],[place] [address] [place] [address] 04/20/2024 09:13:31 04/20/2024 12:10:23 Perennial allergic rhinitis [id number] J30.89 [id number] LEATHA KATZ A Allergy 100 [facility],[place] [address] [place] [address] 04/27/2024 09:42:24 04/27/2024 09:50:44 Perennial allergic rhinitis [id number] J30.89 [id number] DAYRON ALVAREZ RN Allergy [address] [place] [address],[place] [address] [place] [address] 05/04/2024 10:07:29 05/04/2024 10:31:50 Perennial allergic rhinitis [id number] J30.89 [id number] DARIAN ORTA, RMA Allergy 100 [facility],[place] [address] [place] [address] 05/11/2024 08:50:16 05/11/2024 10:49:00 Perennial allergic rhinitis 160084517 J30.89 [id number] DARIAN ORTA RMA Allergy [address] [facility] [place] [address] 05/18/2024 09:43:45 05/18/2024 09:58:52 Perennial allergic rhinitis [id number] J30.89 [id number] LEATHA KATZ A Allergy 100 [facility] [place] [address] 05/25/2024 09:01:50 05/25/2024 09:51:59 Perennial allergic rhinitis [id number] J30.89 Health Concerns Section Related Observation LastModified by Organization Detai ls LastModified Time None Recorded Concern Status LastModified by Organization Details LastModified Time None Recorded Advance Directives Directive None Recorded Payers Encounter Date Sequence Insurance Name Policy Number Policy Hussein Covered Member ID Hussein Member ID Guarantor Name 04/27/2024 1 [facility] Capellan Jr [id number] Chuck Jr Capellan 05/04/2024 1 [facility] Chuck Jr Capellan Jr [id number] Chuck Jr Capellan 05/11/2024 1 [facility] ([facility] Chuck Jr Capellan Jr [id number] 1 Chuck Jr Capellan 05/18/2024 1 [facility] ([facility] Chuck Jr Capellan Jr [id number] Chuck Jr Capellan 05/25/2024 1 [facility] ([facility] Chuck Jr Capellan Jr [id number] 1 Chuck Jr Capellan
--- OUTSIDE RECORDS SUMMARY | 2024-05-26 13:20 | XMS_ITS | Continuity of Care Document ---
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 ? [email or web address] Not available 05/04/2024 10:17:50 Plan of Treatment Reminders Order Date Submit Date Provider Last Modified By Organization Details Last Modified Time Details Appointments [facility]- Allergy f-up 6mon 2024 09:15A M ROBIN [...] Sensorine ural hearing loss of bilateral ears [id number] Active 2022 Sensorine ural hearing loss, bilateral ; Note: Date Diagnosed : 3 12:42 PM (H90.3) Not Available [facility] 4 03:22:37 Allergic rhinitis caused by pollen 26728778 Active 10/26/ 2023 Allergic rhinitis due to pollen; Note: Date Diagnosed : 3 12:42 PM (J30.1) Not Available [facility] 4 03:22:37 Perennial allergic rhinitis 419663620 Active 2023 [facility], [facility] 100 [facility],[place] [address], [place], [address] , [place] [facility] 4 15:57:22 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 [id number] 9109 Active 2023 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; Note: Date Diagnosed : 05/16/2023 10:05 AM (J30.81) Not Available [facility] 4 03:22:37 Allergic rhinitis 20002833 Active 2023 Allergic rhinitis: Due to other [...] Start Date : 4 Not Available [facility] 4 03:22:37 Bilateral disorder of Eustachia n tubes 15106242780 52685 Active 2023 ROBIN JAMA PA-C [address], [place], [place], [address] , [place] [facility] 4 09:40:32 Bilateral tinnitus 30162755534 02 Active 2023 MARY ALVARES [address], [place], [place], [address] , [place] [facility] 4 12:55:53 Impacted cerumen of bilateral ears 23918959016 04692 Active 2023 DOMINIC CALVILLO MD [address], [place], [place], [address] , [place] [facility] [place] 4 13:19:34 Dysfuncti on of bilateral eustachia n tubes 06524948613 31917 Active 2023 DOMINIC CALVILLO MD [address], [place], [address] , [place] - [facility] [place] 4 13:19:39 Seasonal allergic rhinitis 227537638 Active 2023 DOMINIC CALVILLO MD [address], [place], [address] , [place] [facility] 4 13:19:45 Problem Notes None recorded. Procedures Surgical History Date Name Laterality Status Provider Name and Address Organization Details Recorded Time 05/25/19 25 Allergy Immunotherapy Injections completed SHAKEEL KATZ RMA [address], [place], [address], [place] [facility] [place] 05/25/2024 09:19:03 05/18/19 25 Allergy Immunotherapy Injections completed DARIAN BRENNER, RMA [address], [place], [address], [place] [facility] [place] 05/18/2024 09:57:41 05/11/19 25 Allergy Immunotherapy Injections completed DARIAN BRENNER, RMA [address], [place], [address], [place] [facility] [place] 05/11/2024 10:31:23 05/04/19 25 Allergy Immunotherapy Injections completed DAYRON ALVAREZ RN [address], [place], [address], [place] [facility] [place] 05/04/2024 10:17:40 04/27/19 25 Allergy Immunotherapy Injections completed ОЛЬГА COOPER [address], [place], [address], [place] [facility] [place] 04/27/2024 09:49:38 04/20/19 25 Allergy Immunotherapy Injections completed DARIAN BRENNER, RMA [address], [place], [address], [place] [facility] [place] 04/20/2024 12:09:44 04/13/20 24 Allergy Immunotherapy Injections completed DAYRON ALVAREZ RN [address] [facility], [place], [address], [place] [facility] [place] 04/13/2024 10:01:46 04/06/20 24 Allergy Immunotherapy Injections completed DAYRON ALVAREZ RN [address] [facility] [address], [place], [address], [place] [facility] [place] 04/06/2024 09:57:36 03/30/20 24 Allergy Immunotherapy Injections completed ОЛЬГА COOPER [address], [place], [address], [place] [facility] [place] 03/30/2024 11:23:22 03/23/20 24 Allergy Immunotherapy Injections completed DARIAN BRENNER, RMA [address], [place], [address], [place] [facility] [place] 03/23/2024 11:01:51 03/16/20 24 Allergy Immunotherapy Injections completed DAYRON ALVAREZ RN [address], [place], [address], [place] [facility] [place] 03/16/2024 10:18:10 03/09/20 24 Allergy Immunotherapy Injections completed DARIAN BRENNER, RMA [address], [place], [address], [place] [facility] [place] 03/09/2024 10:08:00 03/02/20 24 Allergy Immunotherapy Injections completed DAYRON ALVAREZ RN [address], [place], [address], [place] [facility] [place] 03/02/2024 10:40:15 02/24/20 24 Allergy Immunotherapy Injections completed DARIAN BRENNER RMA [address], [place], [address], [place] [facility] [place] 02/24/2024 10:02:16 02/17/20 24 Allergy Immunotherapy Injections completed ОЛЬГА COOPER [address], [place], [address], [place] [facility] [place] 02/17/2024 09:51:14 02/10/20 24 Allergy Immunotherapy Injections completed DAYRON ALVAREZ RN [address], [place], [address], [place] [facility] [place] 02/10/2024 11:06:13 02/03/20 24 Allergy Immunotherapy Injections completed ОЛЬГА COOPER [address], [place], [address], [place] [facility] [place] 02/03/2024 09:51:56 01/27/20 24 Allergy Immunotherapy Injections completed DARIAN BRENNER, RMA [address], [place], [address], [place] [facility] [place] 01/27/2024 10:59:58 01/23/20 24 Cerumen removal with microscope bilateral completed DOMINIC CALVILLO MD [address] [facility] [place] [address], [place], [address], [place] [facility] [place] 01/23/2024 13:19:27 01/23/20 24 Air & Speech Audio with Tymps ([id number], 63311 & 24983) completed MARY ALVARES [address] [facility] [place],[address] [facility], [place], [address], [place] [facility] [place] 01/23/2024 12:55:38 01/21/20 24 Allergy Immunotherapy Injections completed DAYRON ALVAREZ RN 100 [facility],[address], [address], [place] [facility] [place] 01/21/2024 11:35:49 01/13/20 24 Allergy Immunotherapy Injections completed DARIAN BRENNER RMA [address] [facility] [place],[address], [address], [place] [facility] [place] 01/13/2024 10:24:18 01/06/20 24 Allergy Immunotherapy Injections completed DARIAN BRENNER RMA [address] [facility] [place],[address], [address], [place] [facility] [place] 01/06/2024 10:51:00 12/30/19 24 Allergy Immunotherapy Injections completed ОЛЬГА COOPER [address] [facility] [address], [address], [place] [facility] [place] 12/30/2023 09:55:01 12/16/19 24 Allergy Immunotherapy Injections completed ОЛЬГА COOPER [address] [facility] [place],[address] [place] [address], [address], [place] [facility] [place] 12/16/2023 10:17:29 12/08/19 24 Allergy Immunotherapy Injections completed DAYRON ALVAREZ RN [address] [facility] [address], [address], [place] [facility] [place] 12/08/2023 10:45:14 12/02/19 24 Allergy Immunotherapy Injections completed ОЛЬГА COOPER [address], [place], [address], [place] [facility] [place] 12/02/2023 09:31:58 11/25/19 24 Allergy Immunotherapy Injections completed DAYRON ALVAREZ RN [address] [facility] [address] [place] [address], [address], [place] [facility] [place] 11/25/2023 11:00:52 11/18/19 24 Allergy Immunotherapy Injections completed ОЛЬГА COOPER [address] [facility] [address], [place], [address], [place] [facility] [place] 11/18/2023 09:45:51 11/11/19 24 Allergy Immunotherapy Injections completed DAYRON ALVAREZ RN [address] [facility] [place],[address], [place], [address], [place] [facility] [place] 11/11/2023 10:20:54 11/04/19 24 Allergy Immunotherapy Injections completed DAYRON ALVAREZ RN [address] [facility] [place],[address] [place] [address], [address], [place] [facility] [place] 11/04/2023 11:15:13 10/28/19 24 Allergy Immunotherapy Injections completed ОЛЬГА MCCOY [address] [facility] [address] [place] [address], [address], [place] [facility] [place] 10/28/2023 08:42:57 10/21/19 24 Allergy Immunotherapy Injections completed ОЛЬГА COOPER [address] [facility] [address] [place] [address], [address], [place] [facility] [place] 10/21/2023 12:54:16 10/14/19 24 Allergy Immunotherapy Injections completed ОЛЬГА COOPER [address] [facility] [address] [place] [address], [address], [place] [facility] [place] 10/14/2023 10:26:23 10/07/19 24 Allergy Immunotherapy Injections completed ОЛЬГА COOPER [address] [facility] [address], [place], [address], [place] [facility] [place] 10/07/2023 10:05:18 09/30/19 24 Allergy Immunotherapy Injections completed ОЛЬГА MCCOY 100 [facility],[address] [place] [address], [address], [facility] - [facility] [place] 09/30/2023 09:57:23 09/23/19 24 Allergy Immunotherapy Injections completed [facility], [facility] 100 [facility],[address], [address], [facility] - [facility] 09/23/2023 10:12:31 09/16/19 24 Allergy Immunotherapy Injections completed [facility], [facility] 100 [facility],[address], [address], [facility] - [facility] 09/16/2023 13:57:16 09/09/19 24 Allergy Immunotherapy Injections completed SHAKEEL KATZ, [facility] 100 [facility],[address], [address], [facility] - [facility] 09/09/2023 09:40:09 09/02/19 24 Allergy Immunotherapy Injections completed [facility], [address], [address], [facility] - [facility] 09/02/2023 09:51:09 08/26/19 24 Allergy Immunotherapy Injections completed [facility], [facility] 100 [facility],[address], [address], [facility] 08/26/2023 15:58:16 Imaging Results None recorded. Procedure Notes None recorded. Medical Equipment None Reported. Allergies No known drug allergies Medications Name Sig Start Date Stop Date Status Note LastModified by Organization Details LastModified Time Prescript ion - Prior Authoriza tion Request 12/07 completed Script Copy/Tierney or Auth^Scr ipt Copy/Tierney or Auth_201 [id number] Not Available Not Available Not Available prednison [...] 24 hr 02/14 completed Medicati on ID: [id number] B rand Name: metoprol ol succinat e Send Method: E-Prescr ibed Sub s Allowed: subs OK Medic ationGen ericName : metoprol ol succinat e Not Available Not Available Not Available docusate calcium 240 mg capsule TAKE 1 CAPSULE BY MOUTH TWICE DAILY NEEDED active Not Available Not Available No t Available carvedilo l 3.125 mg tablet 02/14 completed Medicati on ID: [id number] B rand Name: carvedil ol Send Method: E-Prescr ibed Sub s Allowed: subs OK Medic ationGen ericName : carvedil ol Not Available Not Available Not Available lorazepam 0.5 mg tablet TAKE 1 TABLET BY MOUTH AT BEDTIME NEEDED FOR INSOMNIA OR ANXIETY 12/07 completed Not Available Not Available Not Available tamsulosi n 0.4 mg capsule 04/01 completed Medicati on ID: [id number] B rand Name: tamsulos in Send Method: [...] as needed 2023 active Medicati on ID: [id number] D uration Value: 1 Brand Name: EpiPen 2-Chester Se nd Method: E-Prescr ibed Sub s Allowed: subs OK Medic ationGen ericName : EpiPen 2-Chester Not Available Not Available Not Available Linzess 290 mcg capsule TAKE 1 CAPSULE BY MOUTH EVERY DAY NEEDED active Not Available Not Available No t Available Nasacort 55 mcg nasal spray aerosol 12/07 completed Medicati on ID: [id number] D uration Value: 30 Brand Name: Nasacort [...] SNOMED-CT Code Diagnosis ICD10 Code Diagnosis Note [id number] DAYRON ALVAREZ RN Allergy [address] [place] [address] [address] [place] [address] 04/06/2024 09:35:30 04/06/2024 09:57:52 Perennial allergic rhinitis [id number] J30.89 [id number] DAYRON ALVAREZ RN Allergy [address] [place] [address] [address] [place] [address] 04/13/2024 09:47:44 04/13/2024 10:02:00 Perennial allergic rhinitis [id number] J30.89 [id number] DARIAN ORTA [facility] Allergy [address] [place] [address] [address] [place] [address] 04/20/2024 09:13:31 04/20/2024 12:10:23 Perennial allergic rhinitis [id number] J30.89 [id number] SHAKEEL KATZ [facility] Allergy [address] [place] [address] [address] 100 [facility] [place] [address] 04/27/2024 09:42:24 04/27/2024 09:50:44 Perennial allergic rhinitis [id number] J30.89 [id number] DAYRON ALVAREZ RN Allergy [address] [place] [address] 100 [facility] [place] [address] 05/04/2024 10:07:29 05/04/2024 10:31:50 Perennial allergic rhinitis [id number] J30.89 Health Concerns Section Related Observation LastModified by Organization Ashley shukla LastModified Time None Recorded Concern Status LastModified by Organization Details LastModified Time None Recorded Payers Encounter Date Sequence Insurance Name Policy Number Policy Hussein Covered Member ID Hussein Member ID Guarantor Name 05/04/2024 1 [facility] Chuck Capellan Jr [id number] Chuck Capellan
--- OUTSIDE RECORDS SUMMARY | 2024-05-26 13:20 | XMS_ITS | Continuity of Care Document ---
Author Organization [place] - [facility], Allergy Address [address] [place] [address] Care Team Providers Care Parts Room Clerk Name Role Phone EDELMIRA SUMMERS Primary Care Provider Assessment Encounter Date Assessment Date Assessment LastModified by Organization Details LastModified Time 05/25/2024 05/25/2024 Visit With: ОЛЬГА Chatman Use of Antihistamine s: Yes If yes: Vial Test Change in medications: No If yes ? ? ? Increase in asthma symptoms If yes, inhaler use: Reaction to last injections: No If yes: ? ? ? Allergy Symptoms: Other: ? ? ?runny nose Missed: Dose Aware of Vial Test Notes:? ? ? [email or web address] Not available 05/25/2024 09:19:24 Plan of Treatment Reminders Order Date Submit Date Provider Last Modified By Organization Details Last Modified Time Details Appointments [facility]- Allergy f-up 6mon 2024 09:15A M [...] Sensorine ural hearing loss of bilateral ears [id number] Active 2022 Sensorine ural hearing loss, bilateral ; Note: Date Diagnosed : 3 12:42 PM (H90.3) Not Available [facility] 4 03:22:37 Allergic rhinitis caused by pollen 27427306 Active 2022 Allergic rhinitis due to pollen; Note: Date Diagnosed : 3 12:42 PM (J30.1) Not Available [facility] 4 03:22:37 Perennial allergic rhinitis 073747469 Active 2023 [facility] [address],[place] [address], [place], [address] , [place] - [facility] 4 15:57:22 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 [id number] 9109 Active 2023 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; Note: Date Diagnosed : 05/16/2023 10:05 AM (J30.81) Not Available [facility] 4 03:22:37 Allergic rhinitis 37876298 Active 2023 Allergic rhinitis: Due to other [...] Start Date : 4 Not Available [facility] 03:22:37 Bilateral disorder of Eustachia n tubes 71192699511 Active 2023 ROBIN JAMA PA-C [address], [place], [place], [address] , [place] - [facility] 4 09:40:32 Bilateral tinnitus 91692502481 02 Active 2023 MARY ALVARES [address], [place], [place], [address] , [place] - [facility] 4 12:55:53 Impacted cerumen of bilateral ears 35090697925 93979 Active 2023 DOMINIC CALVILLO MD [address], [place], [place], [address] , [place] - [facility] 4 13:19:34 Dysfuncti on of bilateral eustachia n tubes 38039363604 Active 2023 DOMINIC CALVILLO MD [address], [place], [address] , [place] - [facility] 4 13:19:39 Seasonal allergic rhinitis 704687750 Active 2023 DOMINIC CALVILLO MD [address], [place], [address] , [place] [facility] 4 13:19:45 Problem Notes None recorded. Procedures Surgical History Date Name Laterality Status Provider Name and Address Organization Details Recorded Time 05/25/19 25 Allergy Immunotherapy Injections completed INES COOEPRA [address], [place], [address], [place] [facility] 05/25/2024 09:19:03 05/18/19 25 Allergy Immunotherapy Injections completed DARIAN BRENNER, RMA [address], [place], [address], [place] [facility] 05/18/2024 09:57:41 05/11/19 25 Allergy Immunotherapy Injections completed DARIAN BRENNER, RMA [address], [place], [address], [place] [facility] 05/11/2024 10:31:23 05/04/19 25 Allergy Immunotherapy Injections completed DAYRON ALVAREZ RN [address] [place] [address], [address], [place] [facility] 05/04/2024 10:17:40 04/27/19 25 Allergy Immunotherapy Injections completed ОЛЬГА COOPER [address], [place], [address], [place] [facility] 04/27/2024 09:49:38 04/20/19 25 Allergy Immunotherapy Injections completed DARIAN BRENNER, RMA [address], [place], [address], [place] [facility] 04/20/2024 12:09:44 04/13/20 24 Allergy Immunotherapy Injections completed DAYRON ALVAREZ RN [address] [place] [address], [address], [place] [facility] 04/13/2024 10:01:46 04/06/20 24 Allergy Immunotherapy Injections completed DAYRON ALVAREZ RN [address] [place] [address], [address], [place] [facility] 04/06/2024 09:57:36 03/30/20 24 Allergy Immunotherapy Injections completed ОЛЬГА COOPER [address], [place], [address], [place] [facility] 03/30/2024 11:23:22 03/23/20 24 Allergy Immunotherapy Injections completed DARIAN BRENNER, RMA [address], [place], [address], [place] [facility] 03/23/2024 11:01:51 03/16/20 24 Allergy Immunotherapy Injections completed DAYRON ALVAREZ RN [address], [place], [address], [place] [facility] 03/16/2024 10:18:10 03/09/20 24 Allergy Immunotherapy Injections completed DARIAN BRENNER, RMA [address], [place], [address], [place] [facility] 03/09/2024 10:08:00 03/02/20 24 Allergy Immunotherapy Injections completed DAYRON ALVAREZ RN [address], [place], [address], [place] [facility] 03/02/2024 10:40:15 02/24/20 24 Allergy Immunotherapy Injections completed DARIAN BRENNER RMA [address], [place], [address], [place] [facility] 02/24/2024 10:02:16 02/17/20 24 Allergy Immunotherapy Injections completed ОЛЬГА COOPER [address], [place], [address], [place] [facility] 02/17/2024 09:51:14 02/10/20 24 Allergy Immunotherapy Injections completed DAYRON ALVAREZ RN [address] [place] [address], [address], [place] [facility] 02/10/2024 11:06:13 02/03/20 24 Allergy Immunotherapy Injections completed ОЛЬГА COOPER [address], [place], [address], [place] [facility] 02/03/2024 09:51:56 01/27/20 24 Allergy Immunotherapy Injections completed DARIAN BRENNER, RMA [address], [place], [address], [place] [facility] 01/27/2024 10:59:58 01/23/20 24 Cerumen removal with microscope bilateral completed DOMINIC CALVILLO MD [address], [address], [place] [facility] 01/23/2024 13:19:27 01/23/20 24 Air & Speech Audio with Tymps (13012, 21842 & 82045) completed MARY ALVARES [address], [address], [place] [facility] 01/23/2024 12:55:38 01/21/20 24 Allergy Immunotherapy Injections completed DAYRON ALVAREZ RN [address] [facility],[address], [address], [place] [facility] 01/21/2024 11:35:49 01/13/20 24 Allergy Immunotherapy Injections completed DARIAN BRENNER RMKirk [address], [address], [place] [facility] 01/13/2024 10:24:18 01/06/20 24 Allergy Immunotherapy Injections completed DARIAN BRENNER RMA [address] [facility], [address], [place] [facility] 01/06/2024 10:51:00 12/30/19 24 Allergy Immunotherapy Injections completed ОЛЬГА COOPER [address], [address], [place] [facility] 12/30/2023 09:55:01 12/16/19 24 Allergy Immunotherapy Injections completed ОЛЬГА COOPER [address] [place] [address], [address], [place] [facility] 12/16/2023 10:17:29 12/08/19 24 Allergy Immunotherapy Injections completed DAYRON ALVAREZ RN [address], [address], [place] [facility] 12/08/2023 10:45:14 12/02/19 24 Allergy Immunotherapy Injections completed ОЛЬГА COOPER [address], [place], [address], [place] [facility] 12/02/2023 09:31:58 11/25/19 24 Allergy Immunotherapy Injections completed DAYRON ALVAREZ RN [address] [place] [address], [address], [place] [facility] 11/25/2023 11:00:52 11/18/19 24 Allergy Immunotherapy Injections completed ОЛЬГА COOPER [address], [place], [address], [place] [facility] 11/18/2023 09:45:51 11/11/19 24 Allergy Immunotherapy Injections completed DAYRON ALVAREZ RN [address] [place] [address], [address], [place] [facility] 11/11/2023 10:20:54 11/04/19 24 Allergy Immunotherapy Injections completed DAYRON ALVAREZ RN [address] [facility],[address], [address], [place] [facility] 11/04/2023 11:15:13 10/28/19 24 Allergy Immunotherapy Injections completed ОЛЬГА CHATMAN [address] [place] [address], [address], [place] [facility] 10/28/2023 08:42:57 10/21/19 24 Allergy Immunotherapy Injections completed ОЛЬГА COOPER [address] [place] [address], [address], [place] [facility] 10/21/2023 12:54:16 10/14/19 24 Allergy Immunotherapy Injections completed ОЛЬГА COOPER [address] [place] [address], [address], [place] [facility] 10/14/2023 10:26:23 10/07/19 24 Allergy Immunotherapy Injections completed ОЛЬГА COOPER [address], [place], [address], [place] [facility] 10/07/2023 10:05:18 09/30/19 24 Allergy Immunotherapy Injections completed ОЛЬГА CHATMAN [address] [place] [address], [address], [facility] - [facility] 09/30/2023 09:57:23 09/23/19 24 Allergy Immunotherapy Injections completed [facility] [address], [address], [facility] - [facility] 09/23/2023 10:12:31 09/16/19 24 Allergy Immunotherapy Injections completed [facility] [address] [place] [address], [address], [facility] - [facility] 09/16/2023 13:57:16 09/09/19 24 Allergy Immunotherapy Injections completed SHAKEEL KATZ, [facility] [address], [address], [facility] - [facility] 09/09/2023 09:40:09 09/02/19 24 Allergy Immunotherapy Injections completed [facility] [address], [address], [facility] - [facility] 09/02/2023 09:51:09 08/26/19 24 Allergy Immunotherapy Injections completed [facility] [address] [facility],[address], [address], [facility] - [facility] 08/26/2023 15:58:16 Imaging Results None recorded. Procedure Notes None recorded. Medical Equipment None Reported. Allergies No known drug allergies Medications Name Sig Start Date Stop Date Status Note LastModified by Organization Details LastModified Time Prescript ion - Prior Authoriza tion Request 12/07 completed Script Copy/Tierney or Auth^Scr ipt Copy/Tierney or Auth_201 [id number] Not Available Not Available Not Available prednison [...] 24 hr 02/14 completed Medicati on ID: [id number] B rand Name: metoprol ol succinat e Send Method: E-Prescr ibed Sub s Allowed: subs OK Medic ationGen ericName : metoprol ol succinat e Not Available Not Available Not Available docusate calcium 240 mg capsule TAKE 1 CAPSULE BY MOUTH TWICE DAILY NEEDED active Not Available Not Available No t Available carvedilo l 3.125 mg tablet 02/14 completed Medicati on ID: [id number] B rand Name: carvedil ol Send Method: E-Prescr ibed Sub s Allowed: subs OK Medic ationGen ericName : carvedil ol Not Available Not Available Not Available lorazepam 0.5 mg tablet TAKE 1 TABLET BY MOUTH AT BEDTIME NEEDED FOR INSOMNIA OR ANXIETY 12/07 completed Not Available Not Available Not Available tamsulosi n 0.4 mg capsule 04/01 completed Medicati on ID: [id number] B rand Name: tamsulos in Send Method: [...] as needed 2023 active Medicati on ID: [id number] D uration Value: 1 Brand Name: EpiPen 2-Chester Se nd Method: E-Prescr ibed Sub s Allowed: subs OK Medic ationGen ericName : EpiPen 2-Chester Not Available Not Available Not Available Linzess 290 mcg capsule TAKE 1 CAPSULE BY MOUTH EVERY DAY NEEDED active Not Available Not Available No t Available Nasacort 55 mcg nasal spray aerosol 12/07 completed Medicati on ID: [id number] D uration Value: 30 Brand Name: Nasacort [...] SNOMED-CT Code Diagnosis ICD10 Code Diagnosis Note [id number] ОЛЬГА COOPER Allergy [address] [place] [address] 100 [place] [place] [address] 04/27/2024 09:42:24 04/27/2024 09:50:44 Perennial allergic rhinitis 427520314 J30.89 62049 DAYRON ALVAREZ RN Allergy [address] [place] [address] 100 [place] [place] [address] 05/04/2024 10:07:29 05/04/2024 10:31:50 Perennial allergic rhinitis 343096551 J30.89 98074 [facility] Allergy [address] [place] [address] [address] [place] [place] [address] 05/11/2024 08:50:16 05/11/2024 10:49:00 Perennial allergic rhinitis 391502097 J30.89 27655 [facility] Allergy [address] [place] [address] ite 100 [place] [address] 05/18/2024 09:43:45 05/18/2024 09:58:52 Perennial allergic rhinitis 912800855 J30.89 66821 ОЛЬГА COOPER Allergy [address] [place] [address] 100 [place] [place] [address] 05/25/2024 09:01:50 05/25/2024 09:51:59 Perennial allergic rhinitis [id number] J30.89 Health Concerns Section Related Observation LastModified by Organization Ashley shukla LastModified Time None Recorded Concern Status LastModified by Organization Details LastModified Time None Recorded Payers Encounter Date Sequence Insurance Name Policy Number Policy Hussein Covered Member ID Hussein Member ID Guarantor Name 05/25/2024 1 [facility] ([facility] [id number] Chuck Capellan Jr [id number] 1 Chuck Capellan
== END 2024-05-26 11:59 | disposition home or self-care (01) ==
PROVIDERS: PCP Internal Medicine; Visit Provider Hospitalist
DX: G47.33 Obstructive sleep apnea (adult) (pediatric) (principal); R91.8 Other nonspecific abnormal finding of lung field; J92.0 Pleural plaque with presence of asbestos; I71.21 Aneurysm of the ascending aorta, without rupture
CPT/HCPCS: 99214

== ENCOUNTER → 2024-05-26 11:24 | Outpatient (BNVA) | payer MEDICARE, SELFPAY | PROVIDERS: PCP Internal Medicine; Visit Provider Hospitalist | DX: G47.33 Obstructive sleep apnea (adult) (pediatric) (principal); R91.8 Other nonspecific abnormal finding of lung field; I71.21 Aneurysm of the ascending aorta, without rupture; J92.0 Pleural plaque with presence of asbestos | CPT/HCPCS: 99212 ==

== ENCOUNTER 2024-07-06 13:36 | Outpatient (RCR) | payer MEDICARE, SELFPAY ==
--- NOTE | 2024-07-06 15:23 | MHC.PT.DC ---
[facility] [place] [facility] [place] [facility] [place] [facility] [address] Dominga Roger [address] [phone] F: [phone] F: [phone] F: [phone] F: [phone] Physical Therapy Discharge Report Diagnosis: POOR POSTURE, LOSS OF BALANCE, GENERAL MUSCLE WEAKNESS-> PT FOR CONDITIONING AND WALKING IMPROVEMENT Date of Surgery: Date of Evaluation: 05/28/24 Date of Discharge: 07/06/24 Treatments to Date: 5 Cancellations to Date: 2 No Shows to Date: Discharge Status: Achieved Goals Improved Function Independent with HEP Patient Elected to Stop Discharge Summary: CAITY BENEFITTED FROM REVIEW/ PERF OF HEP, ADDRESSING HIP FLEXIB.. HE HAS IMPROVED STRENGTH , GAIT MECH ARE IMPROVED, BUT HE HAS TRUNK FLEX TENDENCIES AND DECR PF EFFORT. HE HAS MET HIS PT GOALS TO MAX POTENTIAL AT THIS TIME AND IS D/C THIS DATE W HEP Electronically signed by: DWAINE PERES,PT Please sign and return to therapist. Thank you for your referral.
== END 2024-07-06 15:24 | disposition home or self-care (01) ==
LOC: HO.PT 13:36
PROVIDERS: PCP Internal Medicine; Visit Provider Internal Medicine
DX: R29.3 Abnormal posture (principal); R26.9 Unspecified abnormalities of gait and mobility
CPT/HCPCS: 97110; 97116; 97162

== ENCOUNTER 2024-08-20 11:02 | Emergency (ER) | payer MEDICARE, SELFPAY ==
--- NOTE | ~2024-08-20 | CT_ITS ---
EXAMINATION: CT CHEST ANGIOGRAPHY WITH IV CONTRAST, CT ABDOMEN PELVIS ANGIOGRAPHY WITH IV CONTRAST INDICATION: trauma fall COMPARISON: Comparison is made with the prior unenhanced chest CT dated 05/11/2024.. TECHNIQUE: CT angiography of the chest, abdomen and pelvis was performed following administration of 80 mL Omnipaque 350 using standard departmental protocol. The contrast bolus was timed to optimally opacify the arterial system. Coronal and sagittal reformatted images were generated and reviewed. Oral contrast material was not administered at the request of the referring physician. This CT exam was performed with one or more of the following dose reduction techniques: automated exposure control, adjustment of the mA and/or kV according to patient size, use of iterative reconstruction technique. DLP: 677 mGy-cm CHEST: THYROID: The thyroid is unremarkable. LUNGS: There are mild emphysematous changes bilaterally. There is dependent atelectasis bilaterally. MEDIASTINUM: There is no mediastinal lymphadenopathy. There is no mediastinal hematoma. LUDWIG: There is no hilar lymphadenopathy. CARDIOVASCULATURE: There is left atrial enlargement. There is no pericardial effusion. There is dilatation of the ascending thoracic aorta which is difficult to measure due to motion artifact. DEGREE OF CORONARY CALCIFICATION: not evaluable, due to dense contrast in the coronary arteries. PLEURA: There is a calcified pleural plaque at the right lung base. There is no pleural effusion. No pneumothorax. MAIN AIRWAYS: The mainstem bronchi and proximal branches are patent. AXILLA: There is no axillary lymphadenopathy. SOFT TISSUES: Unremarkable. BONES: There is degenerative disc disease of the spine. ABDOMEN: LIVER: The liver is normal in size and contour. No liver mass is identified. The hepatic and portal veins are patent. GALLBLADDER / BILE DUCTS: The gallbladder is unremarkable. There is no intra or extrahepatic biliary ductal dilatation. SPLEEN: The spleen is normal in size. No focal splenic lesion is identified. PANCREAS: The pancreas is unremarkable in appearance. ADRENAL GLANDS: Within normal limits. KIDNEYS/RETROPERITONEUM: No renal calculi are identified. There is no hydronephrosis. No renal masses are identified. LYMPH NODES: No abdominal or pelvic lymphadenopathy. VASCULATURE: The abdominal aorta is normal in caliber. The celiac axis, superior mesenteric artery, inferior mesenteric artery, and bilateral renal arteries are patent. MESENTERY/PERITONEUM: No free fluid. No masses. There is no free intraperitoneal gas. STOMACH: There is a small hiatal hernia. The remainder of the stomach is collapsed SMALL BOWEL: The small bowel is normal in caliber. COLON: The colon is unremarkable. APPENDIX: Normal. URINARY BLADDER/PELVIC ORGANS: The urinary bladder is unremarkable. The prostate is normal in size. BONES / SOFT TISSUES: There is degenerative disc disease of the spine. CT/CT angio abdomen pelvis IMPRESSION: 1. No evidence of traumatic injury to the chest, abdomen, or pelvis. Please note that evaluation of the liver and spleen is limited due to the arterial phase of the contrast bolus. 2. Incidental findings as discussed above. Electronically signed by: Jose Manuel Holman MD 08/20/2024 12:48 PM EDT
--- NOTE | ~2024-08-20 | CT_ITS ---
EXAMINATION: CT HEAD WITHOUT CONTRAST CLINICAL INFORMATION: trauma fall COMPARISON: April 24, 2018. TECHNIQUE: Contiguous axial imaging was performed from the skull base to vertex without intravenous administration of contrast. This CT examination was performed using dose optimization techniques as appropriate, variously including the following: *Automated exposure control *Adjustment of mA and/or kV according to patient size (this includes techniques or standardized protocols for targeted exams where dose is matched to indication/reason for exam; i.e. extremities or head) *Use of iterative reconstruction technique DLP: 797.64 mGy-cm FINDINGS: Soft tissue contusion/hematoma superior left parietal. The bony calvarium is intact. No acute intracranial hemorrhage, mass effect, midline shift, hydrocephalus or herniation. Solomon-white matter differentiation is normal. Bilateral multifocal patchy deep periventricular white matter hypodensities involving centrum semiovale and tran radiata. Prominence of the extra-axial CSF spaces cerebral sulci and ventricles. Sellar/suprasellar region demonstrated no gross hemorrhage or masses. Craniocervical junction demonstrates normal position of the cerebellar tonsils. Mucosal thickening and polypoid mucosal thickening in the maxillary sinuses. Intrasinus septum of the sphenoid attached to the right carotid canal. Tympanic cavities and mastoid cells are aerated. CT/CT head/brain wo IV con IMPRESSION: Soft tissue contusion/hematoma superior left parietal. No acute fracture, bony calvarium. No acute intracranial hemorrhage. Electronically signed by: Fredi Velásquez MD 08/20/2024 12:32 PM EDT
--- NOTE | ~2024-08-20 | CT_ITS ---
EXAMINATION: CT CERVICAL SPINE WITHOUT CONTRAST CLINICAL INFORMATION: Status post fall. COMPARISON: April 24, 2018. TECHNIQUE: Contiguous axial images through the cervical spine using 3 mm collimation with bone and soft tissue algorithm. Sagittal and coronal reformatted images with bone algorithm. DLP: 355.[address] examination was performed using dose optimization techniques as appropriate, variously including the following: *Automated exposure control *Adjustment of mA and/or kV according to patient size (this includes techniques or standardized protocols for targeted exams where dose is matched to indication/reason for exam; i.e. extremities or head) *Use of iterative reconstruction technique FINDINGS: Craniocervical junction is intact with normal alignment. C1 is intact. C2 is intact. C3 is intact. C4 is intact with the partial dehiscence CT of the anterior aspect of the transverse foramen bilaterally. C5 is intact. C6 is intact. C 7 is intact. No prevertebral compartment hematoma. Vascular calcifications. Multilevel syndesmophyte formation and marginal osteophyte formation from C2 to T3. Incomplete ankylosis at C4-5. Chondrocalcinosis at C5-6. No gross malalignment between the vertebral bodies or the facet joints. Incomplete fusion of the left facet joints C5-6. CT/CT cervical spine wo IV con IMPRESSION: Multilevel spondylosis without acute fracture or trauma-related listhesis. Consider CPPD. Fleischner guidelines were followed. Electronically signed by: Fredi Velásquez MD 08/20/2024 12:39 PM EDT
[2024-08-20 11:11] VITALS: BP 154/78; PULSE 83; O2SAT 96
[2024-08-20 11:16] VITALS: BP 145/67; PULSE 71; RESP 16; TEMP 37.1; O2SAT 99; BMI 24.3
[2024-08-20 11:43] LABS: Glucose, Whole Blood 100 mg/dL (60-115)
--- NOTE | 2024-08-20 11:52 | ECG_ITS ---
Test Reason : fall Blood Pressure : */* mmHG Vent. Rate : 70 BPM Atrial Rate : 70 BPM P-R Int : 148 ms QRS Dur : 106 ms QT Int : 406 ms P-R-T Axes : 31 21 31 degrees QTcB Int : 438 ms Normal sinus rhythm Normal ECG When compared with ECG of 12-Apr-2007 23:25, No significant changes seen Referred By: Lenora Smith Electronically Signed By: NIKHIL MORGAN
--- NOTE | 2024-08-20 11:53 | ED.FALL ---
HPI - Fall General Chief Complaint: Fall Stated Complaint: FALL Time Seen by Provider: 08/20/24 11:24 Source: patient, EMS, RN notes reviewed and old records reviewed Mode of arrival: EMS Limitations: physical limitation History of Present Illness ED Provider: Lenora Smith PA-C HPI Narrative: Patient arrives via EMS status post fall. Efforts history taken from ENT secondhand information being told he became dizzy at the top of the stairs and fell backwards with a head strike told EMS he was not sure of loss of consciousness he hit the button on his neck when they arrived they call or him and brought him here. Patient was responsive to painful stimuli and verbal while here but kept eyes shut. EMS did not give any pain medication. 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 History obtained after scans with patient seemed more orientated. Patient states to me that he lost his balance at the top of the stairs and he is denying any prodromal symptoms such as chest pain dizziness or shortness of breath. Does not believe he tripped on anything and he fell backwards down a flight of stairs. He can not recall to me whether or not he lost consciousness but states when he opened his eyes he was on the bottom of the stairs and hit his button for alert as he was not able to get himself up. Patient had a similar fall like this a few years ago with no significant findings. He reports to me that his back hurts but otherwise denying having a headache feeling nauseous having any visual changes having any frontal chest discomfort abdominal discomfort. No recent infections or no recent falls otherwise denying any paresthesias. He is not on any anticoagulation. 1:05 pm: Patient re-evaluated at bedside he is requesting to go home he denies any EtOH use. He does not smell of this either,. He now states year is 2024 as before he stated it was 1940 but that is the year of his . Using the loss of balance was due to fluid in his ear he states because of allergies this can happen. He does not feel dizzy at this time. He uses a cane at baseline to ambulate but did not use it when he was at the top of the stairs to go down stairs. Place fall occurred: home Loss of consciousness: unsure Symptoms prior to fall: none Context: tripped/slipped Location of injury: head and back Related Data Home Medications ?Medication ?Instructions ?Recorded ?Confirmed flu vacc [id number](65yr up)-PF 240 ml IM 02/07/20 06/08/20 mcg/0.7 mL intramuscular syringe lisinopril 5 mg tablet 5 mg PO DAILY 06/08/20 06/08/20 fluticasone propionate 50 2 spray intranasal DAILY PRN 04/27/21 mcg/actuation nasal spray,suspension lactulose 10 gram/15 mL oral 15 - 30 ml PO BID PRN constipation 04/27/21 solution epinephrine 0.3 mg/0.3 mL 0.3 ml IM ONCE PRN 07/24/21 injection, auto-injector loratadine 10 mg tablet 10 mg PO DAILY 07/24/21 sennosides 8.6 mg-docusate sodium 1 tab PO BID PRN constipation 07/24/21 50 mg tablet (Stimulant Laxative Plus) celecoxib 200 mg capsule 200 mg PO DAILY 05/01/22 Previous Rx's ?Medication ?Instructions ?Recorded prednisone 10 mg tablet See Rx Instructions PO DAILY 10 04/22/23 days #15 tabs prednisone 20 mg tablet 20 mg PO DAILY 5 days #5 tabs 05/26/24 trazodone 50 mg tablet 50 mg PO BEDTIME PRN sleep 30 days 05/26/24 #30 tabs lidocaine 5 % topical patch 2 patch topical DAILY pain #30 ea 08/20/24 Allergies Allergy/AdvReac Type Severity Reaction Status Date / Time No Known Allergies Allergy Verified 08/20/24 11:19 [No Known Allergies*] [facility] Past Medical History Attestation statement: The following information was validated with the patient. Source: nursing notes reviewed and other (EMS) Medical History Ascending aortic aneurysm GILLIAN (obstructive sleep apnea) Pulmonary nodules Asbestos-induced pleural plaque Surgical History Cataract of left eye Hx of colonoscopy Family History Family History Father No problems noted. Social History Social History Patient Tobacco Use Status: Never used Tobacco Smoked in Last 30 Days: No Use of substances other than those prescribed or required for medical reasons: No Advance Directives: No Advance Directives Information Provided: Yes Physical Exam Vital Signs: Vital Signs: Last Vital Signs Temp 98.2 F 08/20/24 16:20 Pulse 79 08/20/24 16:20 Resp 16 08/20/24 16:20 BP 136/55 L 08/20/24 16:20 Pulse Ox 98 08/20/24 16:20 O2 Del Method Room Air 08/20/24 16:20 BMI result Body Mass Index 24.3 Const: Other: GCS: 10 on arrival (eye: 4, verbal: 2, motor: 4, pupil 0) repeated after scans at 12:30 pm: GCS now 14 (-1 from verbal: confused on time) Hose Turner strength is 4+ throughout, no septal hematoma no hemotympanum noted bilaterally no midfacial instability Diffuse tenderness along the C-spine and T-spine hematoma noted on the left thoracic region, No pelvic instability Extremities grossly normal rectal tone strong, cap refill less than 3 seconds distal pulses 2+ abdomen soft lungs clear no raccoon eyes or onofre sign General: cooperative, alert, awake and other (Responsive to verbal and painful stimuli on arrival ) Nutritional Appearance: well nourished Orientation/consciousness: oriented to person, oriented to place and Other orientation findings (Year is 1940, month is November, President is danisha) Limitations: physical limitations HEENT: Head: Yes contusion (Significant size scalp hematoma approximately 12 cm x 5 cm on the left occ) and Yes hematoma Ears: hearing grossly normal bilaterally and TM's normal bilaterally General nose exam: Normal external nose present Face and sinus: Yes normal facial exam Mouth: Normal oral and palatal mucosa present Teeth and gingiva: other (Poor dentition some teeth missing no instability) Throat: Yes posterior oropharynx normal Eyes: General: appearance normal, both eyes and all related structures EOM: EOMs intact bilaterally Direct Ophthalmoscopy: normal light reflex Neck: Neck: Yes other (C-collar in place) Chest: Chest palpation & inspection: normal inspection of the chest (Left posterior chest wall mild ecchymosis no crepitus or flail chest noted) Resp: Effort & Inspection: normal respiratory effort and able to speak in complete sentences Auscultation: clear to auscultation bilaterally Cardio: Jugular venous distension: no JVD Rate: regular rate Rhythm: regular rhythm Peripheral pulses: Peripheral pulses 2+ throughout Back/Spine/Pelvis: Other: See above Pelvis: no pain with anterior-posterior compression and no pain with lateral compression Skin: Other: See above Hair: normal Nails: normal Neuro: General: oriented to person and oriented to place Medications Administered Discontinued Medications Generic Name Dose Route Start Last Admin Trade Name Vinay PRN Reason Stop Dose Admin Fentanyl 25 mcg 08/20/24 12:20 08/20/24 12:29 Fentanyl Citrate/Pf 100 Mcg/2 Ml Vial IVPUSH 08/20/24 12:21 25 mcg ONCE ONE Administration Protocol Fentanyl 25 mcg 08/20/24 13:21 08/20/24 13:42 Fentanyl Citrate/Pf 100 Mcg/2 Ml Vial IVPUSH 08/20/24 13:22 25 mcg ONCE ONE Administration Protocol Sodium Chloride 1,000 mls @ 999 mls/hr 08/20/24 13:09 08/20/24 16:03 Ns IV 08/20/24 14:09 Infused .Q1H1M ONE Infusion Iohexol 100 ml 08/20/24 12:08 08/20/24 12:09 Iohexol 350 Mg/Ml 100 Ml Infus..Btl IV 08/20/24 12:09 80 ml ONCE ONE Administration Medical Decision Making Medical Decision Making MDM Narrative: 83 year old patient with past medical history significant for PAD, asbestos plueral plaque, and medical assistance device dependence, presenting to the emergency department today for evaluation of injuries sustained from an unwitness fall down flight of stairs prior to arrival. He arrived via EMS from patient pushing his medical alert device on necklace. History and physical as noted above. Upon arrival to ED, patient is afebrile with acceptable stable signs stable. but with GCS of 10. Case was briefly discussed with accepting RN in dept prior to transfer into room to alert of anticipated trauma arrival. Trauma scans discussed amongst attending physician Dr. Klein and myself. When patient arrived I assumed his care and discussed trauma imaging with attending after patient was immediately seen at bedside and had a primary and secondary trauma survey down by myself with assistance from drivability technician and RN. Primary survey was reassuring. Intubation and/ or medical intervention to immediately stablize was not indicated. Secondary trauma exam commenced. No clinically significant injuries noted other than a significant sized scalp hematoma left parietal/occipital region without open scalp laceration, and left posterior upper chest wall contusion without evidence of flail chest. Labs and scanned placed. Patient given fentanyl for analgesia. C collar kept in place, CTA ordered from head to pelvis. No extremity injuries noted from trauma to warrant additional imaging. I had concerns given patietnt's initial GCS score and history that he would have a brain bleed vs traumatic fracture of spine, however imaging was unremarkable. No dissection, fractures, or PTX/ PE. Patients was given fluids and within workup finishing after several bedside rechecks, GSC 15 and nonfocal neuro exam, AOx4. Concussion development very clinically likely, but requests to go home. He did not require any splinting or wound care. As he uses a cane to walk with at baseline, this was trialed but concern for self-care was addressed with patient. As he is competent and passed. He was discharged to home with ride arranged to pick him up. It is possible patient will become more sore and stiff from his fall and would require potential PT/ STR placement. Patient understands that some injuries from accidents can present in a delayed fashion and they have been given strict ED return precautions. Prompt follow up with primary care physician discussed. Patient is in agreement with plan. Discharged to home in stable condition. Differential Diagnosis Differential Diagnoses: The differential diagnosis associated with the presentation includes ICH, spine fracture, PE, traumatic vessel bleed Admission/Observation Consideration of admission/observation: Escalation of care including admission/observation considered No life-threatening trauma or physical impairment to warrant PT assessment/ case mgt/ trauma transfer or hospitalist services. Consult Healthcare Provider Attending ED Physician Dr. Klein. Lab Data MDM Lab Attestation statement: I reviewed the patient's lab results. 08/20/24 11:53 08/20/24 11:53 Labs: Lab Results 08/20/24 08/20/24 Range/Units 11:40 11:53 WBC 12.8 H (4.8-10.8) X10*3/uL RBC 4.15 L (4.60-5.80) X10*6/uL Hgb 13.0 L (14.0-18.0) g/dl Hct 38.4 L (42.0-52.0) % MCV 92.5 (80.0-98.0) fL MCH 31.3 (27.0-33.0) pg MCHC 33.9 (31.0-36.0) g/dl RDW 12.9 (11.0-16.0) % Plt Count 193 (160-400) X10*3/uL MPV 10.3 (9.4-12.4) fL Immature Gran % (Auto) 0.6 H (0.0-0.4) % Neut % (Auto) 77.9 H (45-73) % Lymph % (Auto) 13.6 L (20-40) % Schleicher % (Auto) 6.6 (2-11) % Eos % (Auto) 1.0 (0-4) % Baso % (Auto) 0.3 (0-2) % Lymph # (Auto) 1.8 (1.2-4.9) X10*3/uL Schleicher # (Auto) 0.9 (0.1-1.2) X10*3/uL Eos # (Auto) 0.1 (0.0-0.4) X10*3/uL Baso # (Auto) 0.0 (0.0-0.2) X10*3/uL Abs Immat Gran (auto) 0.08 H (0.00-0.03) X10*3/uL Absolute Neuts (auto) 10.0 H (2.0-8.3) x10*3/uL Absolute Nucleated RBC 0.000 (0.0-0.012) X10*3/uL Nucleated RBC % (auto) 0.0 (0.0-0.2) /100WBC PT 12.9 H (10.9-12.4) SEC INR 1.1 (0.9-1.1) D-Dimer High Sensitivty 7149 NG/ML Sodium 133 L (135-145) mmol/L Potassium 4.9 (3.3-5.1) mmol/L Chloride 103 (96-108) mmol/L Carbon Dioxide 26 (22-29) mmol/L Anion Gap 9 L (12-20) BUN 17 H (9-16) mg/dL Creatinine 0.79 (0.5-1.4) mg/dL Estim Creat Clear Calc 73.3 Estimated GFR > 60 POC Glucose 100 (60-115) mg/dL Random Glucose 99 (60-115) mg/dL Calcium 8.7 (8.4-10.2) mg/dL Total Bilirubin 0.5 (0.0-1.0) mg/dL AST 53 H (5-37) U/L ALT 39 (0-40) U/L Alkaline Phosphatase 51 (39-117) U/L Troponin I High Sens < 2.7 (<3.5-35.0) ng/L Total Protein 7.4 (6.5-8.0) g/dL Albumin 4.0 (3.5-5.0) g/dL Independent Interpretation I performed an independent interpretation of an: EKG and CT Scan Interpretation: No arrhythmia or cardiac abnormality noted, no bleed, dissection, fractures, or dislocations present. Radiology Impression Discussion of test interpretation with radiology: I have reviewed the radiologist's reading. Radiologist Impression: Same as preliminary. No acute findings. Independent Historian Clinical information obtained from an independent historian. History obtained from or confirmed by: EMS Tests considered The following testing was considered but not selected: Trauma work up done. Would have considered additional imaging of extremity had the patient reported of the secondary trauma exam exposed any concerns. Prescription Management I considered prescription management with: Pain Medication Avoidance of RX narcotic pain medicine considered but given risk for future fall and risk of it worsening balance causing future fall and trauma- it was deferred. Pain patch RX given. Chronic Conditions Patient?s care impacted by: Hypertension Social Determinants Patient?s care significantly limited by Social Determinants of Health including: Other Social Determinant of Health (elderly, lives alone) Discharge Plan Discharge Clinical Impression: Hematoma of left parietal scalp, Contusion of back wall of thorax, Cervical muscle strain, Acute lumbar myofascial strain, Fall (on) (from) other stairs and steps, initial encounter Patient Disposition: Home, Self-Care Instructions: Cervical Strain (ED), Scalp Contusion in Adults (ED), Back Pain (ED), Chest Contusion (ED) Additional Instructions: You were evaluated for the head injury. Imaging of your head and neck chest and abdomen including pelvis all of which none showed any acute fractures dislocations bleeds. This is very surprising but highly reassuring. Your neurologic exam was normal here. You have sustained an injury to your head.?? You have symptoms of a concussion.? We have found no evidence to indicate that your head injury was serious, however, new symptoms and unexpected complications can develop hours or even days after the injury. The first 24 hours are the most crucial and you should remain with a reliable geotechnical department manager at least during this period. If any of the following signs develop please go to the ER immediately. - Drowsiness/increased difficulty arousing the patient - Vomiting - Convulsions or fits - Bleeding or watery drainage from the nose or ear - Severe headache - Weakness or loss of feeling in the arm or leg - Confusion or strange behavior - One pupil (black part of the eye) becomes much larger than the other; peculiar eye movements, double vision, or other visual disturbances Please contact your PCP to arrange a followup appointment for reevaluation.?? Sometimes it can take more than a week for complete recovery. No strenuous exercise.? Avoid activity that requires higher level of concentration (reading, staring at screens - ie computer, cell phones). You should avoid any activity that you feel exacerbates your headache. As you begin to feel better you can slowly begin to introduce new activities until you are feeling well and are able to perform your usual activity without symptoms. ABSOLUTELY NO ACTIVITY WHERE YOU COULD HAVE ANOTHER HEAD INJURY, until you have been cleared by you PCP or a neurologist.? You may eat or drink as usual if you so desire, however, you should not drink alcoholic beverages while experiencing concussive symptoms as this may exacerbate your symptoms. Do not use any pain medications stronger than Acetaminophen (Tylenol) for the first 24 hours. Prescriptions: New lidocaine 5 % adhesive patch,medicated 2 patch topical DAILY Qty: 30 0RF Rx Instructions: leave on most painful area for up to 12 hrs No Action Fluzone HighDose Quad 20-21 PF 240 mcg/0.7 mL syringe IM fluticasone propionate 50 mcg/actuation spray,suspension 2 spray intranasal DAILY PRN lisinopril 5 mg tablet 5 mg PO DAILY lactulose 10 gram/15 mL solution 15 - 30 ml PO BID PRN (Reason: constipation) sennosides-docusate sodium [Stimulant Laxative Plus] 8.6-50 mg tablet 1 tab PO BID PRN (Reason: constipation) loratadine 10 mg tablet 10 mg PO DAILY epinephrine 0.3 mg/0.3 mL auto-injector 0.3 ml IM ONCE PRN celecoxib 200 mg capsule 200 mg PO DAILY prednisone 20 mg tablet 20 mg PO DAILY 5 Days Qty: 5 0RF trazodone 50 mg tablet 50 mg PO BEDTIME PRN (Reason: sleep) 30 Days Qty: 30 11RF prednisone 10 mg tablet See Rx Instructions PO DAILY 10 Days Qty: 15 0RF Rx Instructions: PO daily; Take 2 tabs daily x 5 days, then 1 tabs x days Referrals: Kathleen Casarez MD [Primary Care Provider] - 2 days Interventions: ED Discharge Assessment Last Done: 08/20/24 16:20 Discharge Date/Time: 08/20/24 16:21 Print Language: [place]
[2024-08-20 11:56] LABS: MANUAL DIFF FLAG NO
[2024-08-20 11:58] LABS: Basophils Percent Auto 0.3 % (0-2); Eosinophils Absolute Auto 0.1 X10*3/uL (0.0-0.4); Hematocrit 38.4 % (42.0-52.0); Imm Gran Abs Auto 0.08 X10*3/uL (0.00-0.03); Imm Gran Pct Auto 0.6 % (0.0-0.4); Lymphocytes Absolute Auto 1.8 X10*3/uL (1.2-4.9); Lymphocytes Percent Auto 13.6 % (20-40); Mean Corpuscular HGB Conc 33.9 g/dl (31.0-36.0); Mean Corpuscular Hemoglobin 31.3 pg (27.0-33.0); Mean Corpuscular Volume 92.5 fL (80.0-98.0); Mean Platelet Volume 10.3 fL (9.4-12.4); Monocytes Absolute Auto 0.9 X10*3/uL (0.1-1.2); Monocytes Percent Auto 6.6 % (2-11); Neutrophils Percent Auto 77.9 % (45-73); Platelet Count 193 X10*3/uL (160-400); Red Blood Count 4.15 X10*6/uL (4.60-5.80); Red Cell Distribution Width 12.9 % (11.0-16.0); White Blood Count 12.8 X10*3/uL (4.8-10.8)
[2024-08-20 12:04] LABS: INTERNATIONAL NORM RATIO 1.1 (0.9-1.1); Prothrombin Time 12.9 SEC (10.9-12.4)
[2024-08-20] MEDS: iohexoL 350 MG/ML 100 ML INFUS..BTL IV (12:09)
[2024-08-20 12:11] VITALS: BP 159/68; PULSE 77; RESP 11; O2SAT 98
[2024-08-20 12:12] LABS: Anion Gap 9 (12-20); Carbon Dioxide 26 mmol/L (22-29); Chloride 103 mmol/L (96-108); Potassium 4.9 mmol/L (3.3-5.1); Sodium 133 mmol/L (135-145)
--- NOTE | 2024-08-20 12:12 | PC.NURSE ---
pt alert on arrival, able to recall events at that time, following directions, PERRLA, consensual pupils, endorsed normal sensation, movement of extremities. endorsing midback and head pain. large occipital hematoma. upon return to room after approx 10 minutes following triage process, pt became unresponsive to painful stim, occasionally mumbling incomprehensibly. biliat piv access obtained, PA alerted. Pt log rolled in stretcher for eval. transported to ct, awaiting results. pt now more responsive, answering questions a&ox2. endorses ongoing pain, denies hx neurological disorders.
[2024-08-20 12:16] LABS: D Dimer High Sensitivity 7149 NG/ML
[2024-08-20 12:18] LABS: Troponin-I High Sensitivity < 2.7 ng/L (<3.5-35.0)
[2024-08-20 12:21] LABS: Alanine Aminotransferase 39 U/L (0-40); Alkaline Phosphatase 51 U/L (39-117); Aspartate Amino Transferase 53 U/L (5-37); Bilirubin Total 0.5 mg/dL (0.0-1.0); Blood Urea Nitrogen 17 mg/dL (9-16); Calcium 8.7 mg/dL (8.4-10.2); Creatinine Clr Calc Pharmacy 73.3; Estimated Glomerular Filt Rate > 60; Glucose Random 99 mg/dL (60-115); Total Protein 7.4 g/dL (6.5-8.0)
[2024-08-20] MEDS: fentaNYL citrate/PF 100 MCG/2 ML VIAL 25 MCG IVPUSH ×2 (12:29→13:42)
--- OUTSIDE RECORDS SUMMARY | 2024-08-20 12:30 | XMS_ITS | Data Portability ---
Author Organization [place] [facility], Allergy Address [address] [place] [address] Care Team Providers Care Television Repairman Name Role Phone EDELMIRA SUMMERS Primary Care Provider Assessment Encounter Date Assessment Date Assessment LastModified by Organization Details LastModified Time 07/06/2024 07/06/2024 Visit With: Dayron Alvarez RN Use of Antihistamine s: No If yes: Vial Test Change in medications: No If yes ? ? ? Increase in asthma symptoms No Asthma Hx If yes, inhaler use: Reaction to last injections: No If yes: ? ? ? Allergy Symptoms: Other: ? ? ? Missed: Dose Aware of Vial Test Notes:? ? ? [email or web address] Not available 07/06/2024 10:11:53 07/13/2024 07/13/2024 Visit With: Dayron Alvarez RN Use of Antihistamine s: No If yes: Vial Test Change in medications: No If yes ? ? ? Increase in asthma symptoms No Asthma Hx If yes, inhaler use: Reaction to last injections: No If yes: ? ? ? Allergy Symptoms: Other: ? ? ? Missed: Dose Aware of Vial Test Notes:? ? ? [email or web address] Not available 07/13/2024 09:15:03 07/20/2024 07/20/2024 Visit With: ОЛЬГА Chatman Use of Antihistamine s: Yes If yes: Vial Test Change in medications: No If yes ? ? ? Increase in asthma symptoms If yes, inhaler use: Reaction to last injections: No If yes: ? ? ? Allergy Symptoms: Other: ? ? ? Missed: Dose Aware of Vial Test Notes:? ? ? hugo Not available 07/20/2024 10:25:38 07/27/2024 07/27/2024 Visit With: Dayron Alvarez RN Use of Antihistamine s: Yes If yes: Vial Test Change in medications: No If yes ? ? ? Increase in asthma symptoms No Asthma Hx If yes, inhaler use: Reaction to last injections: No If yes: ? ? ? Allergy Symptoms: Other: ? ? ? Missed: Dose Aware of Vial Test Notes:? ? ?aware now biweekly [email or web address] Not available 07/27/2024 08:45:47 08/10/2024 08/10/2024 Visit With: ОЛЬГА Chatman Use of Antihistamine s: Yes If yes: Vial Test Change in medications: No If yes ? ? ? Increase in asthma symptoms If yes, inhaler use: Reaction to last injections: No If yes: ? ? ? Allergy Symptoms: Other: ? ? ? Missed: Dose Aware of Vial Test Notes:? ? ? [email or web address] Not available 08/10/2024 10:22:54 Plan of Treatment Reminders Order Date Submit Date Provider Last Modified By Organization Details Last Modified Time Details Appointments Hearing Test 2024 09:30A M Hearing Test Not available Not available Not available Establish ed 15 2024 10:00A M DWAINE DOMÍNGUEZ PA-C Not available Not available Not available Establish ed- Allergy f-up 6mon 2024 09:30A M OSMEL SAM PA-C Not available Not available Not available [...] Sensorine ural hearing loss of bilateral ears [id number] Active 2022 Sensorine ural hearing loss, bilateral ; Note: Date Diagnosed : 3 12:42 PM (H90.3) Not Available [facility] 4 03:22:37 Allergic rhinitis caused by pollen 90924881 Active 2022 Allergic rhinitis due to pollen; Note: Date Diagnosed : 3 12:42 PM (J30.1) Not Available [facility] 4 03:22:37 Perennial allergic rhinitis 318265075 Active 2023 [facility], [facility] 100 [facility], [place], [address] , 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 [facility],[place] [address], [place], [address] , [facility] - [facility] [place] 4 09:40:32 Bilateral tinnitus 18598085806 02 Active 2023 MARY ALVARES 100 [facility],[place] [address], [place], [address] , [facility] - [facility] 4 12:55:53 Impacted cerumen of bilateral ears 88178609821 45611 Active 2023 DOMINIC CALVILLO MD [address] [facility],[place] [address], [place], [address] , [facility] - [facility] [place] 4 13:19:34 Dysfuncti on of bilateral eustachia n tubes 90314933050 82887 Active 2023 DOMINIC CALVILLO MD [address] [facility],[place] [address], [place], [address] , [facility] - [facility] [place] 4 13:19:39 Seasonal allergic rhinitis 187148346 Active 2023 DOMINIC CALVILLO MD [address] [facility],[place] [address], [place], [address] , [facility] - [facility] [place] 4 13:19:45 Problem Notes None recorded. Procedures Surgical History Date Name Laterality Status Provider Name and Address Organization Details Recorded Time 08/11/19 25 Allergy Immunotherapy Injections completed ОЛЬАГ CHATMAN [address] [facility],[address], [address], [place] [facility] [place] 08/10/2024 10:22:47 07/28/19 25 Allergy Immunotherapy Injections completed DAYRON ALVAREZ RN [address],[place] [address], [place], [address], [place] [facility] 07/27/2024 08:45:33 07/21/19 25 Allergy Immunotherapy Injections completed DARIAN BRENNER, RMA [address],[place] [address], [place], [address], [place] [facility] [place] 07/20/2024 10:25:29 07/14/19 25 Allergy Immunotherapy Injections completed DAYRON ALVAREZ RN [address],[place] [address] [place] [address], [address], [place] [facility] [place] 07/13/2024 09:14:57 07/07/19 25 Allergy Immunotherapy Injections completed DAYRON ALVAREZ RN [address],[place] [address] [place] [address], [address], [place] [facility] 07/06/2024 10:11:47 07/01/19 25 Allergy Immunotherapy Injections completed DAYRON ALVAREZ RN [address],[place] [address] [place] [address], [address], [place] [facility] 06/30/2024 13:53:09 06/23/19 25 Allergy Immunotherapy Injections completed DARIAN BRENNER, RMA [address],[place] [address] [place] [address], [address], [place] [facility] 06/22/2024 11:28:32 06/16/19 25 Allergy Immunotherapy Injections completed DAYRON ALVAREZ RN [address],[place] [address], [place], [address], [place] [facility] 06/15/2024 08:55:06 06/08/19 25 Allergy Immunotherapy Injections completed DARIAN BRENNER, RMA [address],[place] [address], [place], [address], [place] [facility] 06/08/2024 10:36:17 06/01/19 25 Allergy Immunotherapy Injections completed DAYRON ALVAREZ RN [address],[place] [address], [place], [address], [place] [facility] [place] 06/01/2024 09:12:35 05/25/19 25 Allergy Immunotherapy Injections completed ОЛЬГА COOPER [address],[place] [address], [place], [address], [place] [facility] [place] 05/25/2024 09:19:03 05/18/19 25 Allergy Immunotherapy Injections completed DARIAN BRENNER RMKirk [address],[place] [address], [place], [address], [place] [facility] 05/18/2024 09:57:41 05/11/19 25 Allergy Immunotherapy Injections completed DARIAN BRENNER RMA [address],[place] [address], [place], [address], [place] [facility] 05/11/2024 10:31:23 05/04/19 25 Allergy Immunotherapy Injections completed DAYRON ALVAREZ RN [address],[place] [address] [place] [address], [address], [place] [facility] [place] 05/04/2024 10:17:40 04/27/19 25 Allergy Immunotherapy Injections completed ОЛЬГА COOPER [address],[place] [address] [place] [address], [address], [place] [facility] [place] 04/27/2024 09:49:38 04/20/19 25 Allergy Immunotherapy Injections completed DARIAN BRENNER RMA [address],[place] [address] [place] [address], [address], [place] [facility] 04/20/2024 12:09:44 04/13/20 24 Allergy Immunotherapy Injections completed DAYRON ALVAREZ RN [address],[place] [address] [place] [address], [address], [place] [facility] [place] 04/13/2024 10:01:46 04/06/20 24 Allergy Immunotherapy Injections completed DAYRON ALVAREZ RN [address],[place] [address], [place], [address], [place] [facility] 04/06/2024 09:57:36 03/30/20 24 Allergy Immunotherapy Injections completed SHAKEEL STERLING, RMA [address],[place] [address], [place], [address], [place] [facility] [place] 03/30/2024 11:23:22 03/23/20 24 Allergy Immunotherapy Injections completed ОЛЬГА CHATMAN [address],[place] [address], [place], [address], [place] [facility] [place] 03/23/2024 11:01:51 03/16/20 24 Allergy Immunotherapy Injections completed DAYRON ALVAREZ RN [address],[place] [address], [place], [address], [place] [facility] 03/16/2024 10:18:10 03/09/20 24 Allergy Immunotherapy Injections completed ОЛЬГА CHATMAN [address] [facility],[place] [address] [place] [address], [address], [place] [facility] 03/09/2024 10:08:00 03/02/20 24 Allergy Immunotherapy Injections completed DAYRON ALVAREZ RN [address] [facility],[place] [address] [place] [address], [address], [place] [facility] 03/02/2024 10:40:15 02/24/20 24 Allergy Immunotherapy Injections completed DARIAN BRENNER Kirk [address] [facility],[place] [address] [place] [address], [address], [place] [facility] 02/24/2024 10:02:16 02/17/20 24 Allergy Immunotherapy Injections completed ОЛЬГА COOPER [address] [facility],[place] [address] [place] [address], [address], [place] [facility] 02/17/2024 09:51:14 02/10/20 24 Allergy Immunotherapy Injections completed DAYRON ALVAREZ RN [address],[place] [address] [place] [address], [address], [place] [facility] 02/10/2024 11:06:13 02/03/20 24 Allergy Immunotherapy Injections completed ОЛЬГА COOPER [address],[place] [address], [place], [address], [place] [facility] [place] 02/03/2024 09:51:56 01/27/20 24 Allergy Immunotherapy Injections completed DARIAN KORZEC, RMA [address],[place] [address] [place] [address], [address], [place] [facility] 01/27/2024 10:59:58 01/23/20 24 Cerumen removal with microscope bilateral completed DOMINIC CALVILLO MD [address],[place] [facility] [place], [address], [place] [facility] [place] 01/23/2024 13:19:27 01/23/20 24 Air & Speech Audio with Tymps - 56766, 50584 & 25334 completed MARY ALVARES [address],[place] [address], [place], [address], [place] [facility] 01/23/2024 12:55:38 01/21/20 24 Allergy Immunotherapy Injections completed DAYRON ALVAREZ RN 100 [facility],[address], [address], [place] [facility] [place] 01/21/2024 11:35:49 01/13/20 24 Allergy Immunotherapy Injections completed DARIAN BRENNER, [facility] [address] [facility],[address], [address], [place] [facility] [place] 01/13/2024 10:24:18 01/06/20 24 Allergy Immunotherapy Injections completed DARIAN BRENNER, [facility] [address] [facility],[address], [address], [place] [facility] [place] 01/06/2024 10:51:00 12/30/19 24 Allergy Immunotherapy Injections completed ОЛЬГА COOPER 100 [facility],[address], [address], [place] [facility] [place] 12/30/2023 09:55:01 12/16/19 24 Allergy Immunotherapy Injections completed ОЛЬГА COOPER 100 [facility],[address], [address], [place] [facility] [place] 12/16/2023 10:17:29 12/08/19 24 Allergy Immunotherapy Injections completed DAYRON ALVAREZ RN 100 [facility],[address], [address], [place] [facility] [place] 12/08/2023 10:45:14 12/02/19 24 Allergy Immunotherapy Injections completed ОЛЬГА COOPER [address], [place], [address], [place] [facility] [place] 12/02/2023 09:31:58 11/25/19 24 Allergy Immunotherapy Injections completed DAYRON ALVAREZ RN [address], [place], [address], [place] [facility] [place] 11/25/2023 11:00:52 11/18/19 24 Allergy Immunotherapy Injections completed ОЛЬГА COOPER [address], [place], [address], [place] [facility] 11/18/2023 09:45:51 11/11/19 24 Allergy Immunotherapy Injections completed DAYRON ALVAREZ RN [address],[place] [address] [place] [address], [address], [place] [facility] [place] 11/11/2023 10:20:54 11/04/19 24 Allergy Immunotherapy Injections completed DAYRON ALVAREZ RN [address],[place] [address] [place] [address], [address], [place] [facility] [place] 11/04/2023 11:15:13 10/28/19 24 Allergy Immunotherapy Injections completed ОЛЬГА CHATMAN [address],[place], [place], [address], [place] [facility] [place] 10/28/2023 08:42:57 10/21/19 24 Allergy Immunotherapy Injections completed ОЛЬГА COOPER [address],[place] [address], [place], [address], [place] [facility] 10/21/2023 12:54:16 10/14/19 24 Allergy Immunotherapy Injections completed ОЛЬГА COPOER [address],[place] [address], [place], [address], [place] [facility] 10/14/2023 10:26:23 10/07/19 24 Allergy Immunotherapy Injections completed ОЛЬГА COOPER [address],[place] [address], [place], [address], [place] [facility] 10/07/2023 10:05:18 09/30/19 24 Allergy Immunotherapy Injections completed DARIAN MARIVEL, RMA [address], [place], [address], [facility] - [facility] 09/30/2023 09:57:23 09/23/19 24 Allergy Immunotherapy Injections completed [facility], RMA [address],[place] [address], [place], [address], [facility] - [facility] 09/23/2023 10:12:31 09/16/19 24 Allergy Immunotherapy Injections completed [facility] MARIVEL, RMA [address],[place] [address], [place], [address], [facility] - [facility] 09/16/2023 13:57:16 09/09/19 24 Allergy Immunotherapy Injections completed SHAKEEL KATZ, A [address],[place] [facility], [place], [address], [facility] - [facility] 09/09/2023 09:40:09 09/02/19 24 Allergy Immunotherapy Injections completed [facility] MARIVEL, A [address] [facility],[place] [address] [place] [address], [address], [facility] - [facility] 09/02/2023 09:51:09 08/26/19 24 Allergy Immunotherapy Injections completed [facility], RMA [address] [facility],[place] [address], [place], [address], [facility] 08/26/2023 15:58:16 Imaging Results None recorded. Procedure Notes None recorded. Medical Equipment None Reported. Allergies No known drug allergies Medications Name Sig Start Date Stop Date Status Note LastModified by Organization Details LastModified Time Prescript ion - Prior Authoriza tion Request 12/07 completed Script Copy/Tierney or Auth^Scr ipt Copy/Tierney or Auth_201 [id number] Not Available Not Available Not Available prednison e 10 mg tablet TAKE 2 TABLETS BY MOUTH ONCE A DAY FOR 5 DAYS, THEN TAKE 1 TABLET BY MOUTH ONCE A DAY FOR 5 DAYS 12/07 completed Not Available Not Available Not Available atorvasta tin 20 mg tablet TAKE 1 TABLET BY MOUTH DAILY active Not Available Not Available No t Available trazodone 50 mg tablet TAKE 1 TABLET BY MOUTH AT BEDTIME NEEDED FOR SLEEP 06/01 completed Not Available Not Available Not Available cetirizin e 10 mg tablet Take 1 tablet every day by oral route. active Not Available Not Available No t Available metoprolo l succinate ER 50 mg tablet,ex tended release 24 hr 02/14 completed Medicati on ID: [id number] B rand Name: metoprol ol succinat e Send Method: E-Prescr ibed Sub s Allowed: subs OK Medic ationGen ericName : metoprol ol succinat e Not Available Not Available Not Available docusate calcium 240 mg capsule TAKE 1 CAPSULE BY MOUTH TWICE DAILY NEEDED 06/01 completed Not Available Not Available Not Available prednison e 20 mg tablet TAKE 1 TABLET BY MOUTH DAILY FOR 5 DAYS 06/01 completed Not Available Not Available Not Available carvedilo l 3.125 mg tablet 02/14 completed Medicati on ID: [id number] B rand Name: carvedil ol Send Method: E-Prescr ibed Sub s Allowed: subs OK Medic ationGen ericName : carvedil ol Not Available Not Available Not Available lorazepam 0.5 mg tablet TAKE 1 TABLET BY MOUTH AT BEDTIME NEEDED FOR INSOMNIA OR ANXIETY 12/07 completed Not Available Not Available Not Available tamsulosi n 0.4 mg capsule 04/01 completed Medicati on ID: [id number] B rand Name: tamsulos in Send Method: [...] BY MOUTH AT BEDTIME NEEDED FOR INSOMNIA 06/01 completed Not Available Not Available Not Available ergocalci ferol (vitamin D2) 1,250 mcg (50,000 unit) capsule TAKE 1 CAPSULE BY MOUTH 1 TIME A WEEK active Not Available Not Available No t Available azelastin e 137 mcg (0.1 %) nasal spray USE 2 SPRAYS IN EACH NOSTRIL TWICE DAILY active Not Available Not Available No t Available fluticaso ne propionat e 50 mcg/actua tion nasal spray,geronimo pension SHAKE LIQUID AND USE 2 SPRAYS IN EACH NOSTRIL EVERY DAY NEEDED active Not Available Not Available No t Available loratadin e 10 mg capsule Take by oral route. 06/01 completed Not Available Not Available Not Available Allergy Relief (fexofena dine) 180 mg tablet TAKE 1 TABLET BY MOUTH EVERY DAY 06/01 completed Not Available Not Available Not Available EpiPen 2-Chester 0.3 mg/0.3 mL injection , auto-inje ctor Inject 1 pen injector single dose as needed 2023 active Medicati on ID: [id number] D uration Value: 1 Brand Name: EpiPen 2-Chester Se nd Method: E-Prescr ibed Sub s Allowed: subs OK Medic ationGen ericName : EpiPen 2-Chester Not Available Not Available Not Available Linzess 290 mcg capsule TAKE 1 CAPSULE BY MOUTH EVERY DAY NEEDED active Not Available Not Available No t Available Nasacort 55 mcg nasal spray aerosol 12/07 completed Medicati on ID: [id number] D uration Value: 30 Brand Name: Nasacort [...] Code Diagnosis ICD10 Code Diagnosis Note 251 DAYRON ALVAREZ RN Allergy [address] [facility] [address] [facility] [place] [address] 08/26/2023 13:15:43 09/02/2023 09:03:05 Allergic rhinitis caused by pollen 34122901 J30.1 Perennial allergic rhinitis 389987274 J30.89 [id number] DARIAN ORTA [facility] Allergy 100 [facility] [address] [facility] [place] [address] 09/02/2023 09:07:19 09/02/2023 10:12:01 Perennial allergic rhinitis 391979451 J30.89 [id number] SHAKEEL KATZ RMA Allergy 100 [facility] [address] [place] [address] 09/09/2023 09:17:15 09/09/2023 11:57:39 Perennial allergic rhinitis [id number] J30.89 [id number] [facility], RMA Allergy 100 [facility] [address] [place] [address] 09/16/2023 13:45:15 09/16/2023 16:08:18 Perennial allergic rhinitis [id number] J30.89 [id number] [facility], RMA Allergy 100 [facility] [address] [place] [address] 09/23/2023 09:44:39 09/23/2023 10:27:09 Perennial allergic rhinitis 793925096 J30.89 [id number] [facility], RMA Allergy 100 [facility] [address] [place] [address] 09/30/2023 09:35:43 09/30/2023 13:25:11 Perennial allergic rhinitis 817382450 J30.89 [id number] [facility], RMA Allergy 100 [facility] [address] [place] [address] 10/07/2023 09:40:56 10/07/2023 13:10:49 Perennial allergic rhinitis 174801024 J30.89 [id number] SHAKEEL KATZ RMA Allergy 100 [facility] [address] [place] [address] 10/14/2023 09:17:24 10/14/2023 11:16:42 Perennial allergic rhinitis [id number] J30.89 [id number] [facility], RMA Allergy 100 [facility] [address] [place] [address] 10/21/2023 08:42:07 10/21/2023 14:33:12 Perennial allergic rhinitis 426078373 J30.89 [id number] [facility], RMA Allergy 100 [facility] [address] [place] [address] 10/28/2023 08:14:53 10/29/2023 13:02:38 Perennial allergic rhinitis 249351615 J30.89 [id number] DAYRON ALVAREZ RN Allergy [address] [place] [address],[facility] 100 [facility] [place] [address] 11/04/2023 11:14:32 11/04/2023 11:16:13 Perennial allergic rhinitis [id number] J30.89 [id number] DAYRON ALVAREZ RN Allergy [address] [place] [address],[address] [place] [address] 11/11/2023 10:20:14 11/11/2023 10:23:35 Perennial allergic rhinitis 880967495 J30.89 [id number] DAYRON ALVAREZ RN Allergy [address] [place] [address],[address] [place] [address] 11/18/2023 09:18:07 11/18/2023 11:09:46 Perennial allergic rhinitis 533781235 J30.89 [id number] SHAKEEL KATZ [facility] Allergy [address] [place] [address], [place] [address] 11/25/2023 09:11:20 11/25/2023 11:02:30 Perennial allergic rhinitis 858886393 J30.89 Allergic rhinitis 244411 04 J30.9 [id number] SHAKEEL KATZ [facility] Allergy [address] [place] [address] [facility] [place] [address] 12/02/2023 09:10:53 12/02/2023 11:07:40 Perennial allergic rhinitis [id number] J30.89 [id number] ROBIN JAMA PA-C [facility] - [address] [place] [address] 12/08/2023 09:09:38 12/08/2023 09:33:11 Allergic rhinitis 27435791 J30.9 Bilateral disorder of Eustachian tubes [id number] H69.93 [id number] DAYRON ALVAREZ RN Allergy [address] [place] [address] 100 [place] [address] 12/08/2023 10:43:05 12/08/2023 11:01:34 Perennial allergic rhinitis [id number] J30.89 [id number] SHAKEEL KATZ, [facility] Allergy 100 [facility] [address] [place] [address] 12/16/2023 10:15:31 12/16/2023 13:48:04 Perennial allergic rhinitis [id number] J30.89 [id number] SHAKEEL STERLING, [facility] Allergy 100 [facility],[place] [address] [place] [address] 12/30/2023 09:12:40 12/30/2023 11:11:13 Perennial allergic rhinitis [id number] J30.89 [id number] DARIAN ORTA, A Allergy 100 [facility],[place] [address] [place] [address] 01/06/2024 10:23:32 01/06/2024 10:51:29 Perennial allergic rhinitis [id number] J30.89 [id number] SHAKEEL STERLING, A Allergy 100 [facility] [address] [facility] [place] [address] 01/13/2024 09:16:01 01/13/2024 10:24:50 Perennial allergic rhinitis [id number] J30.89 [id number] DAYRON ALVAREZ RN Allergy 100 [facility], ite 100 [place] [address] 01/21/2024 09:19:35 01/21/2024 11:38:50 Perennial allergic rhinitis [id number] J30.89 [id number] DOMINIC CALVILLO MD [facility] 100 [place] [address] 01/23/2024 12:14:53 01/23/2024 13:26:27 Sensorineural hearing loss of bilateral ears [id number] H90.3 Audiologic al evaluation results:Ri ght ear:{{Norm [...] evaluation Impacted c erumen of bilateral ears [id number] H61.23 Recurrent Cerumen Impactions : Ears were meticulous ly cleaned bilaterall y today with a curette and suction. The patient tolerated this well and will follow up for repeat debridemen t per routine. Dysfunctio n of bilateral eustachian tubes [id number] H69.93 allergy related ETD is likely the reason for his blocked ear sensation Seasonal a llergic rhinitis [id number] J30.2 will prescribe oralia. stop claritin. continue flonase. continue SCIT. [id number] DARIAN BRENNER [facility] Allergy [address] [place] [address] 01/27/2024 10:30:43 01/27/2024 11:00:57 Perennial allergic rhinitis [id number] J30.89 [id number] SHAKEEL KATZ [facility] Allergy [address] [place] [address] 02/03/2024 09:35:10 02/03/2024 09:52:19 Perennial allergic rhinitis [id number] J30.89 [id number] DAYRON ALVAREZ RN Allergy [address] [place] [address] 02/10/2024 10:12:31 02/10/2024 11:06:45 Perennial allergic rhinitis [id number] J30.89 [id number] NEMO ROGERSMARY VIVEROS [facility] [place] 100 [facility],[place] 100 [place] [address] 02/10/2024 14:35:29 02/10/2024 16:54:46 Sensorineural hearing loss of bilateral ears [id number] H90.3 Patient came with: selfHis is in a correction. Demos used: Infinio 90R Patient motivation : [...] or silverM2 r/l looked goodUsed Medium vented dom [id number] SHAKEEL KATZ, [facility] Allergy [address] [place] [address], ite 100 [place] [address] 02/17/2024 09:31:11 02/17/2024 09:53:23 Perennial allergic rhinitis [id number] J30.89 [id number] [facility] Allergy [address] [place] [address],[facility] 100 [place] [address] 02/24/2024 09:46:24 02/24/2024 10:03:19 Perennial allergic rhinitis [id number] J30.89 [id number] [facility] Allergy [address] [place] [address], ite 100 [place] [address] 03/02/2024 10:13:10 03/02/2024 10:41:12 Perennial allergic rhinitis [id number] J30.89 [id number] DAYRON ALVAREZ RN Allergy [address] [place] [address],[place] 100 [place] [address] 03/09/2024 09:28:58 03/09/2024 10:09:41 Perennial allergic rhinitis [id number] J30.89 [id number] DAYRON ALVAREZ RN Allergy [address] [place] [address],[place] [address] [place] [address] 03/16/2024 09:36:50 03/16/2024 10:18:42 Perennial allergic rhinitis [id number] J30.89 [id number] SHAKEEL STERLING, [facility] Allergy [address] [place] [address],[place] [address] [place] [address] 03/23/2024 10:21:05 03/23/2024 11:02:31 Perennial allergic rhinitis [id number] J30.89 [id number] [facility] Allergy [address] [place] [address],[place] [address] [place] [address] 03/30/2024 11:22:15 03/30/2024 11:23:49 Perennial allergic rhinitis [id number] J30.89 [id number] DAYRON ALVAREZ RN Allergy [address] [place] [address],[place] [address] [place] [address] 04/06/2024 09:35:30 04/06/2024 09:57:52 Perennial allergic rhinitis [id number] J30.89 [id number] DAYRON ALVAREZ RN Allergy [address] [place] [address],[place] [address] [place] [address] 04/13/2024 09:47:44 04/13/2024 10:02:00 Perennial allergic rhinitis [id number] J30.89 [id number] SHAKEEL STERLING, [facility] Allergy [address] [place] [address],[place] [address] [place] [address] 04/20/2024 09:13:31 04/20/2024 12:10:23 Perennial allergic rhinitis [id number] J30.89 [id number] SHAKEEL KATZ [facility] Allergy [address] [place] [address],[place] [address] [place] [address] 04/27/2024 09:42:24 04/27/2024 09:50:44 Perennial allergic rhinitis [id number] J30.89 [id number] DAYRON ALVAREZ RN Allergy [address] [place] [address],[place] [address] [place] [address] 05/04/2024 10:07:29 05/04/2024 10:31:50 Perennial allergic rhinitis [id number] J30.89 [id number] DAYRON ALVAREZ RN Allergy 100 [facility],[place] [address] [place] [address] 05/11/2024 08:50:16 05/11/2024 10:49:00 Perennial allergic rhinitis [id number] J30.89 [id number] SHAKEEL KATZ [facility] Allergy 100 [facility],[place] [address] [place], [place] [address] 05/18/2024 09:43:45 05/18/2024 09:58:52 Perennial allergic rhinitis [id number] J30.89 [id number] [facility] Allergy 100 [facility],[place] [address] [place] [address] 05/25/2024 09:01:50 05/25/2024 09:51:59 Perennial allergic rhinitis [id number] J30.89 [id number] ROBIN JAMA PA-C [facility] - [place] 100 [facility] [address] 06/01/2024 08:46:23 06/01/2024 09:09:27 Allergic rhinitis [id number] J30.9 Bilateral disorder of Eustachian tubes [id number] H69.93 [id number] SHAKEEL KATZ [facility] Allergy [address] [place] [address],[place] [address] [place] [address] 06/01/2024 08:48:41 06/01/2024 09:13:09 Perennial allergic rhinitis [id number] J30.89 [id number] DAYRON ALVAREZ RN Allergy [address] [place] [address],[place] [address] [place] [address] 06/08/2024 09:08:32 06/08/2024 10:38:09 Perennial allergic rhinitis [id number] J30.89 [id number] DAYRON ALVAREZ RN Allergy [address] [place] [address],[place] [address] [place] [address] 06/15/2024 08:48:12 06/15/2024 08:55:29 Perennial allergic rhinitis [id number] J30.89 [id number] SHAKEEL KATZ [facility] Allergy 100 [facility],[place] [address] [place] [address] 06/22/2024 09:25:25 06/22/2024 11:31:05 Perennial allergic rhinitis [id number] J30.89 [id number] SHAKEEL STERLING, [facility] Allergy [address] [place] [address],[place] [address] [place] [address] 06/30/2024 13:36:16 06/30/2024 13:53:31 Perennial allergic rhinitis [id number] J30.89 [id number] DAYRON ALVAREZ RN Allergy [address] [place] [address],[place] [address] [place] [address] 07/06/2024 09:43:57 07/06/2024 10:12:13 Perennial allergic rhinitis [id number] J30.89 [id number] DAYRON ALVAREZ RN Allergy [address] [place] [address],[place] [address] [place] [address] 07/13/2024 09:02:03 07/13/2024 09:15:18 Perennial allergic rhinitis [id number] J30.89 [id number] DARIAN ORTA, [facility] Allergy [address] [place] [address],[place] [address] [place] [address] 07/20/2024 10:09:58 07/20/2024 10:25:57 Perennial allergic rhinitis [id number] J30.89 [id number] DAYRON ALVAREZ RN Allergy [address] [place] [address], [place] [address] [place] [address] 07/27/2024 08:45:07 07/27/2024 08:46:05 Perennial allergic rhinitis [id number] J30.89 [id number] DARIAN ORTA, [facility] Allergy [address] [place] [address],[place] [address] [place] [address] 08/10/2024 10:08:12 08/10/2024 10:22:02 Perennial allergic rhinitis [id number] J30.89 Health Concerns Section Related Observation LastModified by Organization Detai ls LastModified Time None Recorded Concern Status LastModified by Organization Details LastModified Time None Recorded Advance Directives Directive None Recorded Payers Insurance Date Sequence Insurance Name Policy Number Policy Hussein Covered Member ID Hussein Member ID Guarantor Name 08/10/2024 1 [id number] Chuck Capellan Jr [id number] Chuck Capellan
--- OUTSIDE RECORDS SUMMARY | 2024-08-20 12:30 | XMS_ITS | Clinical Summary ---
Author Organization [facility] ity Address [address] [place] [address] Care Team Providers Care Educational Speech Language Clinician Name Role Phone Unavailable Primary Care Provider [...] Vaccines (1 of 2) 1992 RSV Immunization Adult Patie nts (1 - 1-dose 75+ series) 2017 Cholesterol Screening (Lipid Panel) 03/17/2022 Depression Screening 03/17/2022 Falls Risk Assessment 03/17/2022 Social Influencers of Health Screening 03/17/2022 COVID-19 Vaccine (1 - 2023-2 5 season) 2023 Influenza Vaccine (Season Ended) 2024 HIB Vaccines Aged Out No longer eligi [...] age to complete this topic Meningococcal B Vaccine Aged Out No l onger eligible based on patient's age to complete this topic RSV Immunization Patients Un benito 20 months Aged Out No longer eligible b ased on patient's age to complete this topic Varicella Vaccines Aged Out No longer eligible based on patient's age to complete this topic
[2024-08-20] MEDS: 0.9 % Sodium Chloride 1,000 ML 999 ML IV (13:42)
[2024-08-20 14:11] VITALS: BP 133/57; PULSE 76; RESP 16; O2SAT 98
[2024-08-20 16:20] VITALS: BP 136/55; PULSE 79; RESP 16; TEMP 36.8; O2SAT 98
== END 2024-08-20 16:21 | disposition home or self-care (01) ==
PROVIDERS: Physician Assistant Medical; Emergency Provider Emergency Medicine; PCP Internal Medicine
DX: S16.1XXA Strain of muscle, fascia and tendon at neck level, initial encounter (principal); S39.012A Strain of muscle, fascia and tendon of lower back, initial encounter; S00.03XA Contusion of scalp, initial encounter; S20.212A Contusion of left front wall of thorax, initial encounter; W10.8XXA Fall (on) (from) other stairs and steps, initial encounter; Z91.81 History of falling; Y93.89 Activity, other specified; Y92.018 Other place in single-family (private) house as the place of occurrence of the external cause; Y99.9 Unspecified external cause status; Z79.899 Other long term (current) drug therapy
CPT/HCPCS: 36415; 70450; 71275; 72125; 74174; 80053; 82947; 84484; 85025; 85379; 85610; 93005; 96361; 96374; 96376; 99285; J3010; Q9967

== ENCOUNTER → 2024-08-20 11:24 | Outpatient (BNV) | payer MEDICARE, SELFPAY | PROVIDERS: Emergency Provider Emergency Medicine; PCP Internal Medicine; Visit Provider Radiology Diagnostic Radiology | DX: S29.9XXA Unspecified injury of thorax, initial encounter (principal); M47.892 Other spondylosis, cervical region; S09.90XA Unspecified injury of head, initial encounter | CPT/HCPCS: 70450; 71275; 72125; 74174 ==

== ENCOUNTER → 2024-08-20 11:52 | Outpatient (BNV) | payer MEDICARE, SELFPAY | PROVIDERS: Emergency Provider Emergency Medicine; PCP Internal Medicine; Visit Provider Internal Medicine | DX: S20.229A Contusion of unspecified back wall of thorax, initial encounter (principal); W19.XXXA Unspecified fall, initial encounter | CPT/HCPCS: 93010 ==

== ENCOUNTER 2024-12-15 09:50 | Outpatient (AMB) | payer MEDICARE, MEDICAID, SELFPAY ==
--- NOTE | 2024-12-15 09:52 | MHC.OFFVIS ---
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 He also has underlying obstructive sleep apnea. He did have a CT scan of the chest done April of this year. I personally reviewed the CT scan with him. His pulmonary nodules very small and stable. 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 He did not use any mask or any protection while he was working with the asbestos unfortunately. He does have the pulmonary nodules in the upper to be relatively stable. They will continue to monitor. In regards to sleep apnea the patient did have a sleep study in the past and does have sleep apnea. He did he have a CPAP but he stopped using about 2 years ago. In addition to that he CT scan of the chest will be scheduled for April of 2020 to follow up as pulmonary nodules. He does follow up with thoracic surgery as well. 06/08/2020 patient is here for pulmonary follow-up visit. The patient overall is doing well. He continues to have some shortness of breath with activity but minimal in nature. No significant cough. He denies any chest pains. He did have a CT scan of the chest back in April 2020 demonstrating stable pleural plaques consistent with his exposure to asbestos and also stable pulmonary nodules which is reassuring. In the meantime again we talked about his underlying obstructive sleep apnea. He had minimal disease back when he had a sleep study back in the fall 2019. At this point he would like to hold off on CPAP at this time. The patient did not have any significant drowsiness the morning. He appears to be sleeping well. Therefore, will reassess during the next visit in the fall patient may need to have a repeat sleep study then if he feels that he is having any worsening daytime drowsiness. In regards of his underlying pulmonary nodules in asbestos related lung disease, will plan to follow-up with a CT scan of the chest in 1 year. 04/27/2021 the patient is here for a pulmonary follow-up visit. Overall the patient has been doing well. Has minimal cough. Does have some shortness of breath that is mild in severity. He also complains of intermittent chest discomfort. Currently he does not have any. We did review her CT scan of the chest that he had recently. It appears that he does have the asbestos related lung disease with lung plaques. In addition to that he has pulmonary nodules. That has not changed which is reassuring. More significantly is that he has a 4.4 centimeter ascending aortic aneurysm. This has not changed either which is reassuring. That being said he needs to follow up closely with his primary care doctor. We did talk about the importance of controlling his blood pressure and heart rate he does take medication for that. Otherwise will follow-up in 1 [address] with a repeat CT scan. 05/01/2022 the patient is here for pulmonary follow-up visit. The patient is doing well from a respiratory status. Denies any significant cough or shortness of breath. Sometimes he does complaint of bilateral back discomfort primarily in the lower to mid back area. Denies any pleuritic discomfort. He does not feel a right now. Usually moderate severity. He did have a recent CT scan of the chest that we personally discussed in the office. It appears that his pulmonary nodules are stable. In addition to that he has asbestos related lung disease that does not appear to be getting worse. He does have some changes to his back in I did give him information about that as that may be the cause of the back pain. She is going to follow up with primary care doctor for that. Otherwise will follow-up 1 more year for residual CT scans in view of his pulmonary nodules and is high risk for cancer with the asbestos related lung disease. If the nodules are stable in another year's time. 04/22/2023 the patient is here for pulmonary follow-up visit. Overall the patient has been doing fairly well still complaining of that back discomfort. She also gets more internal. Although does not appear to be pleuritic in nature. Exacerbated by snow shoveling. Denies any rashes in the area. We did review his CT scan of the chest that he had back in March 2023 at [facility]. It appears that he does have asbestos plaques although does unlikely causing discomfort. The did not appear to be changing either. Pulmonary nodules are stable. He does have a 4.6 cm fusiform ascending aortic aneurysm that has been well documented demonstrating stability. Still, he should have somebody following that and I will make sure to send the information over to his vascular surgeon and also make it clear in order for him to also follow-up with Primary Care Cardiology P for now although no evidence of any changes in his CT scans which is reassuring. Because of the ongoing back pain will go ahead and treat him with anti-inflammatory medications for 5-10 days. Will follow-up in 6 months. 05/26/2024 the patient is here for pulmonary follow-up visit. Overall he is doing about the same. Still having back discomfort moderate severity. Denies any pleuritic discomfort. Does concerned him though. He was given a prescription for Celebrex but it does not look like he took it. He also complains of being tired. Feels like his sleep is fragmented because going to the bathroom a lot. Therefore, we had given some prednisone the last time it did help him. Therefore will do a shorter course at this time provide some relief then I did encourage him to try the Celebrex. In addition to that will provide him some assistance with sleep and given trazodone. He already tried and failed [id number] melatonin. Hopefully we can get better quality sleep and then have him function better during the daytime. We did review his CT scan of the chest that he just had 05/11/2024 was personally by me. His asbestos related lung disease is the same and he has pulmonary nodules are stable. No evidence of any parenchymal or pleural based disease that could explain his back pain. The aneurysms are also stable. Her follow-up with cardiology and primary care without. Will follow-up in 6 months to see how his progress with the medication. Otherwise will plan to repeat a CT scan in a year's time. 12/15/2024 the patient is here for a pulmonary follow-up visit. Overall he is doing okay. His now has set a mcc and he is dealing with that. He wants to take at home but it will be a lot of work for him. In the meantime he does complaint of chest discomfort. Feels like his ?heart discomfort ?. 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 He was hoping to follow-up at [place]. I put a referral in an order an echocardiogram. He does have a an aneurysm of the ascending aorta and I do believe he has some valvular disease as well. We do not have an echocardiogram on record. The patient does have a rescue inhaler. Does not feel like he needs any additional inhalers at this time. No recent imaging studies to review. Will follow-up in the spring if he has any issues prior to this he will call for an earlier assessment. [facility] Medical History Ascending aortic aneurysm GILLIAN (obstructive sleep apnea) Pulmonary nodules Asbestos-induced pleural plaque Surgical History Cataract of left eye Hx of colonoscopy Family History Father No problems noted. Social History Patient Tobacco Use Status: Never used Tobacco Review of Systems Const Denies daytime sleepiness, Denies night sweats and Denies stops breathing during sleep ENT Denies change in voice, Denies lip swelling, Denies mouth pain, Reports nasal congestion, Reports nasal discharge and Denies tongue swelling Card Reports chest pain and Reports dyspnea on exertion Resp Reports cough and Reports dyspnea on exertion GI Denies abdominal pain Musc Denies no additional complaints Neuro Denies Neuro-related abnormal movements Psych Denies no additional complaints Timothy/Lymph Denies easy bleeding and Denies lymphadenopathy Aller/Immun Denies lip swelling and Denies tongue swelling Physical Exam Vital Signs: Last Vital Signs Pulse 76 12/15/24 09:53 BP 114/50 L 12/15/24 09:53 Pulse Ox 98 12/15/24 09:53 Oxygen Delivery Method Room Air 12/15/24 09:53 BMI result Body Mass Index 24.1 Const General: alert HEENT General nose exam: Abnormal external nose present and Nasal discharge present Neck Neck: Yes normal visual inspection, Yes full ROM and Yes no lymphadenopathy Chest Chest palpation & inspection: normal inspection of the chest Resp Effort & Inspection: normal respiratory effort Auscultation: clear to auscultation bilaterally Cardio Rate: regular rate Rhythm: regular rhythm Heart sounds: S1 normal heart sound present and S2 normal heart sound present GI Palpation (GI): Soft to palpation and nontender Auscultation: normal bowel sounds Back/Spine/Pelvis Back: back tenderness Extrem General: Yes no clubbing, cyanosis or edema Assessment & Plan Assessment & Plan (1) Pulmonary nodules: Code(s): R91.8 - Other nonspecific abnormal finding of lung field Category: Medical (2) Asbestos-induced pleural plaque: Code(s): J92.0 - Pleural plaque with presence of asbestos Category: Medical (3) Ascending aortic aneurysm: Code(s): I71.2 - Thoracic aortic aneurysm, without rupture Category: Medical Qualifiers: Presence of rupture: without rupture Qualified Code(s): I71.21 - Aneurysm of the ascending aorta, without rupture Plan ECHO Cardiolo referral F/U 6-8 months Orders: Orders CA echo transthoracic complete Today I27.20 - Pulmonary hypertension, unspecified Referrals Cardiology Referral I71.21 - Aneurysm of the ascending aorta, without rupture Coding Level of Care Code Est Pt Level 4 (47228) Complex EM visit Add On G2211 Diagnoses Pulmonary nodules R91.8 Asbestos-induced pleural plaque J92.0 Aneurysm of ascending aorta without rupture I71.21 Presence of rupture: without rupture Time Spent (min) 16
[2024-12-15 09:53] VITALS: BP 114/50; PULSE 76; O2SAT 98; BMI 24.1
--- OUTSIDE RECORDS SUMMARY | 2024-12-15 11:00 | XMS_ITS | Clinical Summary ---
Author Organization [facility] ity Address [address] [place] [address] Care Team Providers Care Freight Adjuster Name Role Phone Unavailable Primary Care Provider [...] series) 2017 Cholesterol Screening (Lipid Panel) 03/17/2022 Falls Risk Assessment 03/17/2022 Social Influencers of Health Screening 03/17/2022 Depression Screening 04/14/2024 COVID-19 Vaccine (1 - 2023-2 5 season) 2024 Influenza Vaccine (#1) 2024 HIB Vaccines Aged Out No longer [...]
--- OUTSIDE RECORDS SUMMARY | 2024-12-15 11:00 | XMS_ITS | Patient Health Record ---
Author Organization [facility] Address [address] [place] [id number] Care Team Providers Care Hard Hat Diver Name Role Phone Chas Saenz Jr Reason For Referral No Information Plan Of Treatment No Information
== END 2024-12-15 10:14 | disposition home or self-care (01) ==
LOC: HO.HPS 09:50
PROVIDERS: PCP Internal Medicine; Visit Provider Hospitalist
DX: R91.8 Other nonspecific abnormal finding of lung field (principal); J92.0 Pleural plaque with presence of asbestos; I71.21 Aneurysm of the ascending aorta, without rupture
CPT/HCPCS: 99214; G2211

== ENCOUNTER → 2024-12-15 09:50 | Outpatient (BNVA) | payer MEDICARE, MEDICAID, SELFPAY | PROVIDERS: PCP Internal Medicine; Visit Provider Hospitalist | DX: I71.21 Aneurysm of the ascending aorta, without rupture (principal); R91.8 Other nonspecific abnormal finding of lung field; J92.0 Pleural plaque with presence of asbestos; R07.9 Chest pain, unspecified | CPT/HCPCS: 99212 ==

== ENCOUNTER → 2025-02-11 10:30 | Outpatient (REF) | payer MEDICARE, MEDICAID, SELFPAY ==
--- NOTE | 2025-02-11 10:33 | CA_ITS ---
Transthoracic Echocardiogram Patient (Last, First, Middle): Chuck Capellan, Gender: Male Date of : 1940 Age: 84 Procedure Date: 02/11/2025 Procedure Type: Transthoracic Echocardiogram Location: OP Height: 170.18 cm Weight: 72.58 kg BSA: 1.84 m2 Heart Rate: 68 bpm BP: 116 / 58 mmHg Contracts Analyst: SB Referring MD: Speedy Finnegan MD Symptoms: I27.20 - Pulmonary hypertension, unspecified Study Quality: Adequate ECG Rhythm: Sinus Conclusions: - The left ventricular systolic function is normal. The calculated ejection fraction is 61% by biplane method. - No obvious valvular pathology seen on this study. - There is no evidence of pulmonary hypertension. 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 Findings Left Ventricle Normal left ventricular cavity size. The left ventricular systolic function is normal. The calculated ejection fraction is 61% by biplane method. There is no evidence of regional wall motion abnormalities. Diastolic function is normal for age. 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 Right Ventricle Normal right ventricular cavity size and systolic function. Atria Both atria are normal in size. Aortic Valve There is a normal trileaflet aortic valve. There is no aortic valve stenosis. There is mild aortic valve regurgitation. Mitral Valve The mitral valve appears normal. There is no mitral valve regurgitation. There is no mitral valve stenosis. Pulmonic Valve There is trace pulmonic valve regurgitation. Tricuspid Valve There is trace tricuspid valve regurgitation. There is no evidence of pulmonary hypertension. 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 Venous The inferior vena cava is normal in size and collapses greater than 50% with inspiration. Pericardium/Pleural There is no evidence of pericardial effusion. Prior Study Comparison No prior study available for comparison. Recommendations, Care & Conclusions No obvious valvular pathology seen on this study. Measurements 2D Linear Measurements IVSd: 1.04 0.6-0.9/0.6-1.0 cm LVIDd: 5.42 3.9-5.3/4.2-5.9 cm LVIDd Index: 2.95 2.4-3.2/2.2-3.1 cm/m2 LVIDs: 3.71 2.0-3.6 cm LVPWd: 0.80 0.7-1.1 cm LA Diam: 3.80 2.7-3.8/3.0-4.0 cm LAIDs Index: 2.07 1.5-2.3 cm/m2 LV Mass: 232.87 67-162/88-224 g LV Mass Index: 126.56 43-95/49-115 g/m2 LVOT Diam: 2.70 3.0+(-)1.3 cm 2D Systolic Function EF 4C: 56.00 >55% EF 2C: 66.80 >55% EF BiP: 61.10 >55% Mitral Valve MV Pk E: 0.42 MV PK A: 0.68 MV Decel Time: 178.00 E/A: 0.60 E'Lateral: 5.87 E'Medial: 4.46 E/E' Med: 9.40 E/E' Lat: 7.20 PHT: 52.00 MVA PHT: 4.23 Decel Tama: 2.36 Aortic Valve AoV Pk Kimo: 0.95 AoV Pk Grad: 4.00 LYDIA: 5.46 AI Pk Kimo: 3.25 AI VTI: 1.63 AI Tama: 1.98 LVOT LVOT Pk Kimo: 0.93 LVOT Mn Kimo: 0.64 LVOT VTI: 0.21 LVOT Pk Grad: 3.00 LVOT Mn Grad: 2.00 LVOT Diam: 2.70 LVOT Area: 5.73 Diastolic Function MV Pk E: 0.42 MV Pk A: 0.68 E/A: 0.60 E'Medial: 4.46 E/E' Med: 9.40 E' Laterial: 5.87 E/E' Lat: 7.20 Right Ventricle TAPSE (mm): 23.40 TVS' Kimo: 11.00 Tricuspid Valve TR Pk Kimo: 1.69 TR Pk Grad: 11.00 RA Press: 3.00 RVSP: 14.00 Great Vessels Aorta Sinus of Valsalva: 4.60 2.0-3.5 cm Ao Asc: 4.60 2.1-3.4 cm Ao Arch: 2.90 Pulmonary Veins Pulm Vein S/D 2.20 Pulmonary Valve PV Pk Kimo: 0.76 Peak PV Grad: 2.00 Updated in Other Vendor System with Status of Final Torito Lundberg MD electronically signed on 02/12/2025 1:18:56 PM with status of Final
--- OUTSIDE RECORDS SUMMARY | 2025-02-11 11:53 | XMS_ITS | Data Portability ---
Author Organization [place] [facility], Allergy Address [address] [place] [phone] Care Team Providers Care Interior Specialist Name Role Phone EDELMIRA SUMMERS Primary Care Provider Assessment Encounter Date Assessment Date Assessment LastModified by Organization Details LastModified Time 12/14/2024 12/14/2024 Visit With: ОЛЬГА Chatman Use of Antihistamine s: Yes If yes: Vial Test Change in medications: No If yes Increase in asthma symptoms If yes, inhaler use: Reaction to last injections: No If yes: Allergy Symptoms: Other: Missed: Dose Aware of Vial Test Yes Aware: Notes: [email or web address] Not available 12/14/2024 09:40:38 12/28/2024 12/28/2024 Visit With: Leatha Katz Use of Antihistamine s: No If yes: Vial Test Change in medications: No If yes Increase in asthma symptoms No Asthma Hx If yes, inhaler use: Reaction to last injections: No If yes: Allergy Symptoms: Other: Missed: Dose Aware of Vial Test Aware: Notes: [email or web address] Not available 12/28/2024 10:45:07 01/11/2025 01/11/2025 Visit With: Leatha Katz Use of Antihistamine s: No If yes: Vial Test Change in medications: No If yes Increase in asthma symptoms If yes, inhaler use: Reaction to last injections: No If yes: Allergy Symptoms: Other: Missed: Dose Aware of Vial Test Aware: Notes: [email or web address] Not available 01/11/2025 10:25:32 01/25/2025 01/25/2025 Visit With: Dayron Alvarez RN Use of Antihistamine s: No If yes: Vial Test Change in medications: No If yes Increase in asthma symptoms If yes, inhaler use: Reaction to last injections: No If yes: Allergy Symptoms: Other: ears blocked Missed: Dose Aware of Vial Test Aware: Notes: Not available 01/25/2025 11:41:02 02/08/2025 02/08/2025 Visit With: ОЛЬГА Chatman Use of Antihistamine s: Yes If yes: Vial Test Change in medications: No If yes Increase in asthma symptoms If yes, inhaler use: Reaction to last injections: No If yes: Allergy Symptoms: Other: Missed: Dose Aware of Vial Test Aware: Notes: [email or web address] Not available 02/08/2025 09:58:13 Plan of Treatment Reminders Order Date Submit Date Provider Last Modified By Organization Details Last Modified Time Details Appointments [facility]- Allergy f-up 6mon 2025 09:30A M OSMEL SAM PA-C Not available [...] Sensorine ural hearing loss of bilateral ears [id number] Active 2022 Sensorine ural hearing loss, bilateral ; Note: Date Diagnosed : 3 12:42 PM (H90.3) Not Available [facility] 4 03:22:37 Allergic rhinitis caused by pollen 35717179 Active 2022 Allergic rhinitis due to pollen; Note: Date Diagnosed : 3 12:42 PM (J30.1) Not Available [facility] 4 03:22:37 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 53672115528 9109 Active 2023 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; Note: Date Diagnosed : 05/16/2023 10:05 AM (J30.81) Not Available [facility] 4 03:22:37 Allergic rhinitis 23129922 Active 2023 Allergic rhinitis: Due to other [...] Start Date : 4 Not Available [facility] 03:22:37 Perennial allergic rhinitis 204322921 Active 2023 LEATHA KATZ, [facility] [address] [facility], [place], [address] , [place] [facility] 5 11:40:41 Bilateral disorder of Eustachia n tubes 46822979034 90093 Active 2023 [place] [facility] [place] 4 09:40:32 Bilateral tinnitus 35131884872 02 Active 2023 NEMOJULIA ROGERS, AUD [address] [facility],[place] [address], [place], [address] , [place] [facility] 4 12:55:53 Impacted cerumen of bilateral ears [id number] 11847 Active 2023 DOMINIC CALVILLO MD [address] [facility],[place] [address], [place], [address] , [facility] - [facility] 4 13:19:34 Dysfuncti on of bilateral eustachia n tubes 75953303420 Active 2023 DOMINIC CALVILLO MD [address] [facility],[place] [address], [place], [address] , [facility] - [facility] 4 13:19:39 Seasonal allergic rhinitis 337834102 Active 2023 DOMINIC CALVILLO MD [address] [facility],[place] [address], [place], [address] , [facility] - [facility] 4 13:19:45 Sensorine ural hearing loss of bilateral ears 939449897 Active 2024 SARA BEACH [place], CCC-A [address] [facility],[place] [address], [place], [address] , [place] [facility] 5 11:15:32 Ear sensation s - finding 834598701 Active 2024 NETTIE GOLDBERG MD [address] [facility],[place] [address], [place], [address] , [place] [facility] 5 12:31:24 Lighthead edness 471056621 Active 2024 NETTIE GOLDBERG MD [address], [place], [address] , [place] [facility] 12:31:33 Problem Notes None recorded. Procedures Surgical History Date Name Laterality Status Provider Name and Address Organization Details Recorded Time 02/09/20 25 Allergy Immunotherapy Injections completed DARIAN BRENNER, RMA [address], [place], [address], [place] [facility] 02/08/2025 09:58:07 01/26/20 25 Allergy Immunotherapy Injections completed LEATHA KATZ A [address], [place], [address], [place] [facility] 01/25/2025 11:41:15 01/12/20 25 Allergy Immunotherapy Injections completed LEATHA KATZ A [address], [place], [address], [place] [facility] 01/11/2025 10:25:27 12/29/19 25 Allergy Immunotherapy Injections completed Monica Carty [address] [facility], [place], [address], [place] [facility] 12/28/2024 10:44:49 12/15/19 25 Allergy Immunotherapy Injections completed DARIAN BRENNER, RMA [address] [facility], [place], [address], [place] [facility] 12/14/2024 09:40:30 12/01/19 25 Allergy Immunotherapy Injections completed Monica Carty [address] [facility] [address] [facility], [place], [address], [place] [facility] 11/30/2024 09:01:51 11/17/19 25 Allergy Immunotherapy Injections completed DARIAN BRENNER RMA [address], [place], [address], [place] [facility] 11/16/2024 09:17:45 11/03/19 25 Allergy Immunotherapy Injections completed DAYRON ALVAREZ RN [address], [place], [address], [place] [facility] 11/02/2024 11:36:15 10/20/19 25 Allergy Immunotherapy Injections completed LEATHA KATZ, RMA [address] [facility], [place], [address], [place] [facility] 10/19/2024 08:59:42 10/06/19 25 Allergy Immunotherapy Injections completed LEATHA KATZ, RMA [address], [place], [address], [place] [facility] 10/05/2024 10:52:47 09/16/19 25 Allergy Immunotherapy Injections completed DARIAN BRENNER, RMA [address], [place], [address], [place] [facility] 09/15/2024 11:43:18 09/11/19 25 Air & Speech Audio with Tymps - 81275, 36916 & 74610 completed ORALIA NUÑEZ, AUD [address],[place] [address], [place], [address], [place] [facility] 09/10/2024 09:08:37 08/27/19 25 Tympanometry - 18159 completed SARA BEACH [place], CCC-A [address] [facility],[address], [address], [place] [facility] 08/26/2024 11:15:43 08/27/19 25 Allergy Immunotherapy Injections completed DAYRON ALVAREZ RN [address], [address], [place] [facility] 08/26/2024 11:25:59 08/11/19 25 Allergy Immunotherapy Injections completed DARIAN BRENNER, RMA [address] [place] [address], [address], [place] [facility] 08/10/2024 10:22:47 07/28/19 25 Allergy Immunotherapy Injections completed DAYRON ALVAREZ RN [address] [place] [address], [address], [place] [facility] 07/27/2024 08:45:33 07/21/19 25 Allergy Immunotherapy Injections completed DARIAN BRENNER, RMA [address] [facility], [place], [address], [place] [facility] 07/20/2024 10:25:29 07/14/19 25 Allergy Immunotherapy Injections completed DAYRON ALVAREZ RN [address], [place], [address], [place] [facility] 07/13/2024 09:14:57 07/07/19 25 Allergy Immunotherapy Injections completed DAYRON ALVAREZ RN [address], [place], [address], [place] [facility] 07/06/2024 10:11:47 07/01/19 25 Allergy Immunotherapy Injections completed DAYRON ALVAREZ RN [address], [place], [address], [place] [facility] 06/30/2024 13:53:09 06/23/19 25 Allergy Immunotherapy Injections completed DARIAN BRENNER RMKirk [address] [place] [address], [address], [place] [facility] 06/22/2024 11:28:32 06/16/19 25 Allergy Immunotherapy Injections completed DAYRON ALVAREZ RN [address] [place] [address], [address], [place] [facility] 06/15/2024 08:55:06 06/08/19 25 Allergy Immunotherapy Injections completed DARIAN BRENNER RMKirk [address], [place], [address], [place] [facility] 06/08/2024 10:36:17 06/01/19 25 Allergy Immunotherapy Injections completed DAYRON ALVAREZ RN [address], [place], [address], [place] [facility] 06/01/2024 09:12:35 05/25/19 25 Allergy Immunotherapy Injections completed ОЛЬГА COOPER [address], [place], [address], [place] [facility] 05/25/2024 09:19:03 05/18/19 25 Allergy Immunotherapy Injections completed DARIAN BRENNER RMA [address], [place], [address], [place] [facility] 05/18/2024 09:57:41 05/11/19 25 Allergy Immunotherapy Injections completed DARIAN BRENNER RMA [address], [place], [address], [place] [facility] 05/11/2024 10:31:23 05/04/19 25 Allergy Immunotherapy Injections completed DAYRON ALVAREZ RN [address], [place], [address], [place] [facility] 05/04/2024 10:17:40 04/27/19 25 Allergy Immunotherapy Injections completed ОЛЬГА COOPER [address] [place] [address], [address], [place] [facility] 04/27/2024 09:49:38 04/20/19 25 Allergy Immunotherapy Injections completed DARIAN BRENNER RMKirk [address] [place] [address], [address], [place] [facility] 04/20/2024 12:09:44 04/13/20 24 Allergy Immunotherapy Injections completed DAYRON ALVAREZ RN [address] [facility] [place] [address], [address], [place] [facility] 04/13/2024 10:01:46 04/06/20 24 Allergy Immunotherapy Injections completed DAYRON ALVAREZ RN [address] [place] [address], [address], [place] [facility] 04/06/2024 09:57:36 03/30/20 24 Allergy Immunotherapy Injections completed ОЛЬГА COOPER [address], [place], [address], [place] [facility] 03/30/2024 11:23:22 03/23/20 24 Allergy Immunotherapy Injections completed DARIAN BRENNER RMKirk [address], [place], [address], [place] [facility] 03/23/2024 11:01:51 03/16/20 24 Allergy Immunotherapy Injections completed DAYRON ALVAREZ RN [address] [place] [address], [address], [place] [facility] 03/16/2024 10:18:10 03/09/20 24 Allergy Immunotherapy Injections completed DARIAN BRENNER RMA [address] [facility] [place] [address], [address], [place] [facility] 03/09/2024 10:08:00 03/02/20 24 Allergy Immunotherapy Injections completed DAYRON ALVAREZ RN [address] [facility], [address], [place] [facility] 03/02/2024 10:40:15 02/24/20 24 Allergy Immunotherapy Injections completed DARIAN BRENNER RMA [address] [facility] [address], [address], [place] [facility] 02/24/2024 10:02:16 02/17/20 24 Allergy Immunotherapy Injections completed ОЛЬГА COOPER [address] [facility], [address], [facility] - [facility] [place] [facility] 02/17/2024 09:51:14 02/10/20 24 Allergy Immunotherapy Injections completed DAYRON ALVAREZ RN [address] [facility],[address], [address], [facility] - [facility] 02/10/2024 11:06:13 02/03/20 24 Allergy Immunotherapy Injections completed ОЛЬГА COOPER [address] [facility] [address], [address], [facility] - [facility] 02/03/2024 09:51:56 01/27/20 24 Allergy Immunotherapy Injections completed DARIAN BRENNER RMA [address] [facility] [place] [address], [address], [place] [facility] 01/27/2024 10:59:58 01/23/20 24 Cerumen removal with microscope bilateral completed DOMINIC CALVILLO MD [address] [place] [address], [address], [place] [facility] 01/23/2024 13:19:27 01/23/20 24 Air & Speech Audio with Tymps - 12624, 25035 & 82324 completed NEMO ROGERS, AUD [address], [place], [address], [place] [facility] 01/23/2024 12:55:38 01/21/20 24 Allergy Immunotherapy Injections completed DAYRON ALVAREZ RN [address], [place], [address], [place] [facility] 01/21/2024 11:35:49 01/13/20 24 Allergy Immunotherapy Injections completed DARIAN BRENNER, RMA [address], [place], [address], [place] [facility] 01/13/2024 10:24:18 01/06/20 24 Allergy Immunotherapy Injections completed DARIAN BRENNER, RMA [address], [place], [address], [place] [facility] 01/06/2024 10:51:00 12/30/19 24 Allergy Immunotherapy Injections completed ОЛЬГА COOPER [address] [place] [address], [address], [place] [facility] 12/30/2023 09:55:01 12/16/19 24 Allergy Immunotherapy Injections completed ОЛЬГА COOPER [address] [place] [address], [address], [place] [facility] 12/16/2023 10:17:29 12/08/19 24 Allergy Immunotherapy Injections completed DAYRON ALVAREZ RN [address] [place] [address], [address], [place] [facility] 12/08/2023 10:45:14 12/02/19 24 Allergy Immunotherapy Injections completed ОЛЬГА COOPER [address] [place] [address], [address], [place] [facility] 12/02/2023 09:31:58 11/25/19 24 Allergy Immunotherapy Injections completed DAYRON ALVAREZ RN [address], [place], [address], [place] [facility] 11/25/2023 11:00:52 11/18/19 24 Allergy Immunotherapy Injections completed ОЛЬГА COOPER [address], [place], [address], [place] [facility] 11/18/2023 09:45:51 11/11/19 24 Allergy Immunotherapy Injections completed DAYRON ALVAREZ RN [address], [place], [address], [place] [facility] 11/11/2023 10:20:54 11/04/19 24 Allergy Immunotherapy Injections completed DAYRON ALVAREZ RN [address], [place], [address], [place] [facility] 11/04/2023 11:15:13 10/28/19 24 Allergy Immunotherapy Injections completed ОЛЬГА CHATMAN [address], [place], [address], [place] [facility] 10/28/2023 08:42:57 10/21/19 24 Allergy Immunotherapy Injections completed ОЛЬГА COOPER [address], [place], [address], [place] [facility] 10/21/2023 12:54:16 10/14/19 24 Allergy Immunotherapy Injections completed ОЛЬГА COOPER [address], [place], [address], [place] [facility] 10/14/2023 10:26:23 10/07/19 24 Allergy Immunotherapy Injections completed ОЛЬГА COOPER [address], [place], [address], [place] [facility] 10/07/2023 10:05:18 09/30/19 24 Allergy Immunotherapy Injections completed DARIAN BRENNER RMA [address], [place], [address], [place] [facility] 09/30/2023 09:57:23 09/23/19 24 Allergy Immunotherapy Injections completed DARIAN BRENNER RMA [address], [place], [address], [place] [facility] 09/23/2023 10:12:31 09/16/19 24 Allergy Immunotherapy Injections completed [facility], [facility] [address] [facility],[place] [address], [place], [address], [facility] - [facility] 09/16/2023 13:57:16 09/09/19 24 Allergy Immunotherapy Injections completed LEATHA STERLING, [facility] [address] [facility],[facility], [place], [address], [facility] - [facility] 09/09/2023 09:40:09 09/02/19 24 Allergy Immunotherapy Injections completed DARIAN MARIVEL, [facility] [address] [facility],[place] [address], [place], [address], [facility] - [facility] 09/02/2023 09:51:09 08/26/19 24 Allergy Immunotherapy Injections completed [facility], [facility] [address] [facility],[place] [address], [place], [address], [facility] 08/26/2023 15:58:16 Imaging Results None recorded. Procedure Notes None recorded. Medical Equipment None Reported. Allergies No known drug allergies Medications Name Sig Start Date Stop Date Status Note LastModified by Organization Details LastModified Time Prescript ion - Prior Authoriza tion Request 12/07 completed Script Copy/Tierney or Auth^Scr ipt Copy/Tierney or Auth_201 [id number] Not Available Not Available Not Available prednison [...] BY MOUTH AT BEDTIME NEEDED FOR SLEEP 12/06 completed Not Available Not Available Not Available cetirizin e 10 mg tablet Take 1 tablet every day by oral route. active Not Available Not Available No t Available metoprolo l succinate ER 50 mg tablet,ex tended release 24 hr 02/14 completed Medicati on ID: [id number] B rand Name: metoprol ol succinat e [...] mg tablet 02/14 completed Medicati on ID: [id number] B rand Name: carvedil ol Send Method: E-Prescr ibed Sub s Allowed: subs OK Medic ationGen ericName : carvedil ol Not Available Not Available Not Available lorazepam 0.5 mg tablet TAKE 1 TABLET BY MOUTH AT BEDTIME NEEDED FOR INSOMNIA OR ANXIETY 12/07 completed Not Available Not Available Not Available tamsulosi n 0.4 mg capsule 04/01 completed Medicati on ID: [id number] B rand Name: tamsulos in Send Method: E-Prescr ibed Sub s Allowed: subs OK Medic ationGen ericName : tamsulos in Not Available Not Available Not Available lidocaine 5 % topical patch APPLY 2 PATCHES TOPICALL Y TO THE SKIN DAILY FOR PAIN. LEAVE ON MOST PAINFUL AREA FOR UP TO 12 HOURS active Not Available Not Available No t Available hydrocort isone-tyrese e vera 1 % [...] as needed 2023 active Medicati on ID: [id number] D uration Value: 1 Brand Name: EpiPen 2-Chester Se nd Method: E-Prescr ibed Sub s Allowed: subs OK Medic ationGen ericName : EpiPen 2-Chester Not Available Not Available Not Available Linzess 290 mcg capsule TAKE 1 CAPSULE BY MOUTH EVERY DAY NEEDED active Not Available Not Available No t Available Nasacort 55 mcg nasal spray aerosol 12/07 completed Medicati on ID: [id number] D uration Value: 30 Brand Name: Nasacort [...] Diagnosis SNOMED-CT Code Diagnosis ICD10 Code Diagnosis IMO Codes Diagnosis Note 251 DAYRON ALVAREZ RN Allergy [address] [place] [address],[facility] 100 [facility] [place] [address] 08/26/2023 13:15:43 09/02/2023 09:03:05 Allergic rhinitis caused by pollen [id number] J30.1 Perennial allergic rhinitis [id number] J30.89 932 DARIAN ORTA [facility] Allergy [address] [facility], [place] 100 [facility] [place] [address] 09/02/2023 09:07:19 09/02/2023 10:12:01 Perennial allergic rhinitis [id number] J30.89 1606 LEATHA KATZ [facility] Allergy [address] [facility],[place] 100 [facility] [place] [address] 09/09/2023 09:17:15 09/09/2023 11:57:39 Perennial allergic rhinitis [id number] J30.89 2704 [facility], A Allergy [address] [facility] [address] [place] [address] 09/16/2023 13:45:15 09/16/2023 16:08:18 Perennial allergic rhinitis [id number] J30.89 3550 [facility], A Allergy [address] [facility] [address] [place] [address] 09/23/2023 09:44:39 09/23/2023 10:27:09 Perennial allergic rhinitis [id number] J30.89 4474 [facility], [facility] Allergy [address] [facility],[place] [address] [place] [address] 09/30/2023 09:35:43 09/30/2023 13:25:11 Perennial allergic rhinitis [id number] J30.89 5444 [facility], A Allergy [address] [facility],[place] [address] [place] [address] 10/07/2023 09:40:56 10/07/2023 13:10:49 Perennial allergic rhinitis [id number] J30.89 6290 LEATHA KATZ, [facility] Allergy [address] [place] [address],[place] [address] [place] [address] 10/14/2023 09:17:24 10/14/2023 11:16:42 Perennial allergic rhinitis [id number] J30.89 7072 [facility], [facility] Allergy [address] [facility],[place] [address] [place] [address] 10/21/2023 08:42:07 10/21/2023 14:33:12 Perennial allergic rhinitis [id number] J30.89 7966 [facility], [facility] Allergy [address] [facility],[place] [address] [place] [address] 10/28/2023 08:14:53 10/29/2023 13:02:38 Perennial allergic rhinitis [id number] J30.89 9060 DAYRON ALVAREZ, [employer] [address] [facility] [address] [address] [place] [address] 11/04/2023 11:14:32 11/04/2023 11:16:13 Perennial allergic rhinitis [id number] J30.89 [id number] DAYRON ALVAREZ RN Allergy [address] [place] [address],[facility] 100 [facility] [place] [address] 11/11/2023 10:20:14 11/11/2023 10:23:35 Perennial allergic rhinitis [id number] J30.89 [id number] DAYRON ALVAREZ RN Allergy [address] [place] [address],[address] [place] [address] 11/18/2023 09:18:07 11/18/2023 11:09:46 Perennial allergic rhinitis [id number] J30.89 [id number] LEATHA KATZ [facility] Allergy [address] [place] [address], [place] [address] 11/25/2023 09:11:20 11/25/2023 11:02:30 Perennial allergic rhinitis 232716233 J30.89 Allergic rhinitis 180074 04 J30.9 [id number] LEATHA KATZ [facility] Allergy [address] [place], [place] [address]e [address] [place] [address], [place] [address] 12/02/2023 09:10:53 12/02/2023 11:07:40 Perennial allergic rhinitis 970624067 J30.89 [id number] ROBIN JAMA PA-C [facility] [place] [address] [place] [address] 12/08/2023 09:09:38 12/08/2023 09:33:11 Allergic rhinitis 85025133 J30.9 Bilateral disorder of Eustachian tubes [id number] 855197 H69.93 [id number] DAYRON ALVAREZ RN Allergy [address] [place] [address],[facility] [address] [facility] [address] 12/08/2023 10:43:05 12/08/2023 11:01:34 Perennial allergic rhinitis 924002957 J30.89 [id number] LEATHA KATZ [facility] Allergy [address] [place] [address], [place]e [address] [facility] [place] [address] 12/16/2023 10:15:31 12/16/2023 13:48:04 Perennial allergic rhinitis 390494586 J30.89 [id number] LEATHA KATZ A Allergy [address] [place], [place] [address] 100 [facility] [place] [address] 12/30/2023 09:12:40 12/30/2023 11:11:13 Perennial allergic rhinitis [id number] J30.89 [id number] DARIAN BRENNER, [facility] Allergy [address] [facility],[place] 100 [facility] [place] [address] 01/06/2024 10:23:32 01/06/2024 10:51:29 Perennial allergic rhinitis 040179026 J30.89 [id number] LEATHA STERLING, [facility] Allergy [address] [place] [address], [place]e 100 [facility] [place] [address] 01/13/2024 09:16:01 01/13/2024 10:24:50 Perennial allergic rhinitis 537043634 J30.89 [id number] DAYRON ALVAREZ [employer] [address] [place] [address], [place] 100 [facility] [place] [address] 01/21/2024 09:19:35 01/21/2024 11:38:50 Perennial allergic rhinitis [id number] J30.89 [id number] DOMINIC CALVILLO MD [facility] 100 [place] [address] 01/23/2024 12:14:53 01/23/2024 13:26:27 Sensorineural hearing loss of bilateral ears 555839390 H90.3 Audiologic al evaluation results:Ri ght ear:Normal sloping to severe sensorineu ral hearing loss with good word recognitio n.Left ear:Normal sloping to moderately severe sensorineu ral hearing loss with good word recognitio n. Tympanomet ry:Right Ear:Type ALeft Ear:Type A will arrange hearing aid evaluation Impacted c erumen of bilateral ears [id number] 677638 H61.23 Recurrent Cerumen Impactions : Ears were meticulous ly cleaned bilaterall y today with a curette and suction. The patient tolerated this well and will follow up for repeat debridemen t per routine. Dysfunctio n of bilateral eustachian tubes [id number] 655210 H69.93 allergy related ETD is likely the reason for his blocked ear sensation Seasonal a llergic rhinitis 611828717 J30.2 will prescribe oralia. stop claritin. continue flonase. continue SCIT. [id number] DARIAN ORTA, RMA Allergy 100 [facility],[place] 100 [place] [address] 01/27/2024 10:30:43 01/27/2024 11:00:57 Perennial allergic rhinitis 658388592 J30.89 [id number] LEATHA KATZ [facility] Allergy [address] [facility],[place] 100 [facility] [place] [address] 02/03/2024 09:35:10 02/03/2024 09:52:19 Perennial allergic rhinitis 271224095 J30.89 [id number] DAYRON ALVAREZ RN Allergy [address] [place] [address],[place] 100 [facility] [place] [address] 02/10/2024 10:12:31 02/10/2024 11:06:45 Perennial allergic rhinitis 810760608 J30.89 [id number] MARY ALVARES VIVEROS - [facility] [address] [place] [address],[facility] 100 [facility] [place] [address] 02/10/2024 14:35:29 02/10/2024 16:54:46 Sensorineural hearing loss of bilateral ears 879393513 H90.3 Patient came with: selfHis is in a chcf. Demos used: Infinio 90R Patient motivation : [...] silverM2 r/l looked goodUsed Medium vented domes [id number] LEATHA KATZ [facility] Allergy 100 [facility],[place] [address] [facility] [place] [address] 02/17/2024 09:31:11 02/17/2024 09:53:23 Perennial allergic rhinitis 246322906 J30.89 [id number] DARIAN BRENNER, A Allergy 100 [facility],[place] 100 [facility] [place] [address] 02/24/2024 09:46:24 02/24/2024 10:03:19 Perennial allergic rhinitis 294032699 J30.89 [id number] [facility], [facility] Allergy [address] [place] [address],[place] [address] [place] [address] 03/02/2024 10:13:10 03/02/2024 10:41:12 Perennial allergic rhinitis 078855905 J30.89 [id number] DAYRON ALVAREZ RN Allergy [address] [place] [address], ite [address] [place] [address] 03/09/2024 09:28:58 03/09/2024 10:09:41 Perennial allergic rhinitis 611781377 J30.89 [id number] DAYRON ALVAREZ RN Allergy [address] [place] [address] ite [address] [place] [address] 03/16/2024 09:36:50 03/16/2024 10:18:42 Perennial allergic rhinitis 493945939 J30.89 [id number] LEATHA KATZ [facility] Allergy [address] [place] [address], ite [address] [place] [address] 03/23/2024 10:21:05 03/23/2024 11:02:31 Perennial allergic rhinitis 863243437 J30.89 [id number] [facility], [facility] Allergy [address] [place] [address], ite [address] [place] [address] 03/30/2024 11:22:15 03/30/2024 11:23:49 Perennial allergic rhinitis 946129768 J30.89 [id number] DAYRON ALVAREZ RN Allergy [address] [place] [address], ite [address] [place] [address] 04/06/2024 09:35:30 04/06/2024 09:57:52 Perennial allergic rhinitis [id number] J30.89 [id number] DAYRON ALVAREZ RN Allergy [address] [place] [address] ite [address] [place] [address] 04/13/2024 09:47:44 04/13/2024 10:02:00 Perennial allergic rhinitis [id number] J30.89 [id number] LEATHA KATZ [facility] Allergy [address] [place] [address] ite [address] [place] [address] 04/20/2024 09:13:31 04/20/2024 12:10:23 Perennial allergic rhinitis 478243072 J30.89 [id number] LEATHA STERLING [facility] Allergy [address] [place] [address] [facility] [place] [address] 04/27/2024 09:42:24 04/27/2024 09:50:44 Perennial allergic rhinitis 481661566 J30.89 [id number] DAYRON ALVAREZ RN Allergy [address] [place] [address] 100 [facility] [place] [address] 05/04/2024 10:07:29 05/04/2024 10:31:50 Perennial allergic rhinitis 851434829 J30.89 [id number] DAYRON ALVAREZ RN Allergy [address] [place] [address], [place] [address] 05/11/2024 08:50:16 05/11/2024 10:49:00 Perennial allergic rhinitis 153537112 J30.89 [id number] LEATHA KATZ [facility] Allergy [address] [place] [address], [place] [address] 05/18/2024 09:43:45 05/18/2024 09:58:52 Perennial allergic rhinitis 886180530 J30.89 [id number] DARIAN [facility], [facility] Allergy [address] [place] [address] [facility] [address] 05/25/2024 09:01:50 05/25/2024 09:51:59 Perennial allergic rhinitis [id number] J30.89 [id number] ROBIN JAMA PA-C [facility] of [facility] - [address] [place] [address] 06/01/2024 08:46:23 06/01/2024 09:09:27 Allergic rhinitis 69660290 J30.9 Bilateral disorder of Eustachian tubes 8397776151 136748 H69.93 [id number] [facility] All[facility] [address] [place] [address] 100 [facility] [place] [address] 06/01/2024 08:48:41 06/01/2024 09:13:09 Perennial allergic rhinitis 433644197 J30.89 [id number] DAYRON ALVAREZ RN Allergy [address] [place] [address],[place] [address] [place] [address] 06/08/2024 09:08:32 06/08/2024 10:38:09 Perennial allergic rhinitis 860177985 J30.89 [id number] DAYRON ALVAREZ RN Allergy [address] [place] [address],[place] [address] [place] [address] 06/15/2024 08:48:12 06/15/2024 08:55:29 Perennial allergic rhinitis 666074392 J30.89 [id number] LEATHA KATZ, [facility] Allergy [address] [place] [address],[place] [address] [place] [address] 06/22/2024 09:25:25 06/22/2024 11:31:05 Perennial allergic rhinitis 592569583 J30.89 [id number] LEATHA KATZ, [facility] Allergy [address] [place] [address],[place] [address] [place] [address] 06/30/2024 13:36:16 06/30/2024 13:53:31 Perennial allergic rhinitis 364986918 J30.89 [id number] DAYRON ALVAREZ RN Allergy [address] [place] [address],[place] [address] [place] [address] 07/06/2024 09:43:57 07/06/2024 10:12:13 Perennial allergic rhinitis 058193611 J30.89 [id number] DAYRON ALVAREZ RN Allergy [address] [place] [address],[place] [address] [place] [address] 07/13/2024 09:02:03 07/13/2024 09:15:18 Perennial allergic rhinitis 827443512 J30.89 [id number] [facility], [facility] Allergy [address] [place] [address],[place] [address] [place] [address] 07/20/2024 10:09:58 07/20/2024 10:25:57 Perennial allergic rhinitis 531356969 J30.89 [id number] DAYRON ALVAREZ RN Allergy [address] [place] [address],[place] [address] [place] [address] 07/27/2024 08:45:07 07/27/2024 08:46:05 Perennial allergic rhinitis [id number] J30.89 [id number] DARIAN BRENNER, A Allergy [address] [place] [address] 08/10/2024 10:08:12 08/10/2024 10:22:02 Perennial allergic rhinitis 414689955 J30.89 [id number] NETTIE GOLDBERG MD [facility] of [address] [address] 08/26/2024 11:17:54 08/26/2024 14:30:24 Sensorineural hearing loss of bilateral ears 392720484 H90.3 [id number] Audiologic al evaluation results: Tympanomet ry: Right Ear:Type A Left Ear:Type A Ear sensat ions - finding 093275887 H93.8X3 [id number] Lightheadedness 96662810 8 R42 [id number] DAYRON ALVAREZ RN Allergy [address] [place] [address] 08/26/2024 10:52:20 08/26/2024 11:26:42 Perennial allergic rhinitis 362794103 J30.89 [id number] DWAINE DOMÍNGUEZ PA-C [facility] of [address] [address] 09/10/2024 08:46:26 09/10/2024 09:38:12 Sensorineural hearing loss of bilateral ears 698882352 H90.3 [id number] Right ear:Normal sloping to severe sensorineu ral hearing loss with good word recognitio n.Left ear:Normal sloping to moderately severe sensorineu ral hearing loss with good word recognitio n. Tympanomet ry:Right Ear: Type ALeft Ear: Type A Lightheadedness 80161000 8 R42 [id number] [id number] DAYRON ALVAREZ RN Allergy [address] [place] [address] 09/15/2024 11:13:46 09/15/2024 11:43:49 Perennial allergic rhinitis 141183208 J30.89 [id number] LEATHA KATZ [facility] Allergy [address] [place] [address] 10/05/2024 10:32:14 10/05/2024 10:53:36 Perennial allergic rhinitis 149719553 J30.89 [id number] LEATHA KATZ [address] [place] [address] 10/19/2024 08:49:29 10/19/2024 09:00:03 Perennial allergic rhinitis 450345768 J30.89 [id number] DAYRON ALVAREZ RN Allergy [address] [place] [address], [place] [address] 11/02/2024 10:00:01 11/02/2024 11:36:39 Perennial allergic rhinitis 103685650 J30.89 [id number] [facility] All[facility] [address] [place] [address], [place] [address] 11/16/2024 09:04:44 11/16/2024 09:18:14 Perennial allergic rhinitis 038391291 J30.89 [id number] DAYRON ALVAREZ RN Allergy [address] [place] [address], [place] [address] 11/30/2024 08:42:14 11/30/2024 09:02:33 Perennial allergic rhinitis 845974695 J30.89 [id number] NETTIE GOLDBERG MD [facility] of [address] [address] 12/06/2024 08:29:28 12/06/2024 09:11:14 Dysfunction of bilateral eustachian tubes 9903386516 448887 H69.93 Sensorineu ral hearing loss of bilateral ears 310040064 H90.3 [id number] Audiologic al evaluation results: Tympanomet ry: Right Ear:Type A Left Ear:Type A Perennial allergic rhinitis 398989387 J30.89 [id number] DARIAN ORTA, [facility] Allergy [address] [place] [address], [place] [address] 12/14/2024 08:26:59 12/14/2024 09:40:55 Perennial allergic rhinitis 422239762 J30.89 [id number] LEATHA KATZ [address],[place] 100 [place] [address] 12/28/2024 09:46:53 12/28/2024 10:45:55 Perennial allergic rhinitis 020921118 J30.89 [id number] LEATHA STERLING [facility] Allergy 100 [facility],[place] [address] [place] [address] 01/11/2025 09:35:31 01/11/2025 10:25:43 Perennial allergic rhinitis 864543357 J30.89 [id number] DAYRON ALVAREZ RN Allergy 100 [facility],[place] [address] [facility] [place] [address] 01/25/2025 10:07:08 01/25/2025 11:41:49 Perennial allergic rhinitis 053165624 J30.89 [id number] DARIAN ORTA, A [facility] [place] [address] [facility] [address] 02/08/2025 09:38:31 02/08/2025 09:58:26 Perennial allergic rhinitis 496830278 J30.89 Health Concerns Section Related Observation LastModified by Organization Detai ls LastModified Time None Recorded Concern Status LastModified by Organization Details LastModified Time None Recorded Advance Directives Directive None Recorded Payers Insurance Date Sequence Insurance Name Policy Number Policy Hussein Covered Member ID Hussein Member ID Guarantor Name 02/08/[address] [facility] (HMO) [facility] Chuck Capellan Jr [id number] Chuck Capellan 01/25/2025 2 [place] [facility] Dina Capellan [id number] Chuck Capellan
--- OUTSIDE RECORDS SUMMARY | 2025-02-11 11:53 | XMS_ITS | Patient Health Record ---
Author Organization [facility] Address [address] [place] [id number] Care Team Providers Care Food Preservation Scientist Name Role Phone Chas Saenz Jr [phone] Reason For Referral No Information Plan Of Treatment No Information
--- OUTSIDE RECORDS SUMMARY | 2025-02-11 11:53 | XMS_ITS | Clinical Summary ---
Author Organization [facility] ity Address [address] [place] [address] Care Team Providers Care Cementer Helper Name Role Phone Unavailable Primary Care Provider [...]
--- OUTSIDE RECORDS SUMMARY | 2025-02-11 11:53 | XMS_ITS | Continuity of Care Document ---
Author Organization [place] - [facility], Allergy Address [address] [place] [phone] Care Team Providers Care Glaucoma Specialist Name Role Phone EDELMIRA SUMMERS Primary Care Provider Assessment Encounter Date Assessment Date Assessment LastModified by Organization Details LastModified Time 02/08/2025 02/08/2025 Visit With: ОЛЬГА Chatman Use [...] Organization Details Last Modified Time Details Appointments [facility]- Allergy f-up 6mon 2025 09:30A M OSMEL [...] Sensorine ural hearing loss of bilateral ears [id number] Active 2022 Sensorine ural hearing loss, bilateral ; Note: Date Diagnosed : 3 12:42 PM (H90.3) Not Available [facility] 4 03:22:37 Allergic rhinitis caused by pollen 32426627 Active 2022 Allergic rhinitis due to pollen; Note: Date Diagnosed : 3 12:42 PM (J30.1) Not Available [facility] 4 03:22:37 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 [id number] 9109 Active 2023 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; Note: Date Diagnosed : 05/16/2023 10:05 AM (J30.81) Not Available [facility] 4 03:22:37 Allergic rhinitis 49156898 Active 2023 Allergic rhinitis: Due to other [...] ; Start Date : [address] [facility] 4 03:22:37 Perennial allergic rhinitis 005912615 Active 2023 SHAKEEL KATZ, [facility] [address], [place], [address] , [place] [facility] 5 11:40:41 Bilateral disorder of Eustachia n tubes 11205590231 10442 Active 2023 Cristiana vaughn [place] - [facility] 4 09:40:32 Bilateral tinnitus 22073638938 02 Active 2023 NEMO ROGERS, [facility] [address],[facility], [place], [address] , [facility] - [facility] 4 12:55:53 Impacted cerumen of bilateral ears [id number] 08571 Active 2023 DOMINIC CALVILLO MD [address],[facility], [place], [address] , [place] - [facility] 4 13:19:34 Dysfuncti on of bilateral eustachia n tubes 45925302837 86958 Active 2023 DOMINIC CALVILLO MD [address],[place] [address], [place], [address] , [facility] - [facility] 4 13:19:39 Seasonal allergic rhinitis 394758365 Active 2023 DOMINIC CALVILLO MD [address],[facility], [place], [address] , [facility] - [facility] 4 13:19:45 Sensorine ural hearing loss of bilateral ears 147964067 Active 2024 SARA BEACH [place], CCC-A [address],[facility], [place], [address] , [place] - [facility] 11:15:32 Ear sensation s - finding 948105404 Active 2024 NETTIE GOLDBERG MD [address], [facility] [place], [address] , [place] - [facility] 12:31:24 Lighthead edness 968401374 Active 2024 NETTIE GOLDBERG MD [address], [facility] [place], [address] , [facility] - [facility] 12:31:33 Problem Notes None recorded. Procedures Surgical History Date Name Laterality Status Provider Name and Address Organization Details Recorded Time 02/09/20 25 Allergy Immunotherapy Injections completed DARIAN BRENNER [facility] [address] [facility], [place], [address], [place] - [facility] 02/08/2025 09:58:07 01/26/20 25 Allergy Immunotherapy Injections completed ОЛЬГА COOPER [address] [facility], [place], [address], [place] [facility] 01/25/2025 11:41:15 01/12/20 25 Allergy Immunotherapy Injections completed ОЛЬГА COOPER [address] [place] [address], [address], [facility] - [facility] 01/11/2025 10:25:27 12/29/19 25 Allergy Immunotherapy Injections completed Monica Carty [address] [facility], [place], [address], [facility] - [facility] 12/28/2024 10:44:49 12/15/19 25 Allergy Immunotherapy Injections completed DARIAN BRENNER [facility] [address] [place] [address], [address], [facility] - [facility] 12/14/2024 09:40:30 12/01/19 25 Allergy Immunotherapy Injections completed Monica Carty [address], [place], [address], [place] [facility] 11/30/2024 09:01:51 08/05/20 25 Allergy Immunotherapy Injections completed DARIAN BRENNER, RMA [address], [place], [address], [place] [facility] 11/16/2024 09:17:45 11/03/19 25 Allergy Immunotherapy Injections completed DAYRON ALVAREZ RN [address] [facility], [place], [address], [place] [facility] 11/02/2024 11:36:15 10/20/19 25 Allergy Immunotherapy Injections completed SHAKEEL KATZ RMA [address] [facility], [place], [address], [place] [facility] 10/19/2024 08:59:42 10/06/19 25 Allergy Immunotherapy Injections completed SHAKEEL KATZ A [address] [facility], [place], [address], [place] [facility] 10/05/2024 10:52:47 09/16/19 25 Allergy Immunotherapy Injections completed DARIAN BRENNER, RMA [address] [facility], [place], [address], [place] [facility] 09/15/2024 11:43:18 09/11/19 25 Air & Speech Audio with Tymps - 82942, 05303 & 24961 completed MARY DONOHUE [address], [address], [place] [facility] 09/10/2024 09:08:37 08/27/19 25 Tympanometry - 14393 completed SARA BEACH [place], CCC-A [address] [facility], [place], [address], [place] - [facility] 08/26/2024 11:15:43 08/27/19 25 Allergy Immunotherapy Injections completed DAYRON ALVAREZ RN [address] [place] [address], [address], [place] [facility] 08/26/2024 11:25:59 08/11/19 25 Allergy Immunotherapy Injections completed DARIAN BRENNER, RMA [address], [place], [address], [place] [facility] 08/10/2024 10:22:47 07/28/19 25 Allergy Immunotherapy Injections completed DAYRON ALVAREZ RN [address], [place], [address], [place] [facility] 07/27/2024 08:45:33 07/21/19 25 Allergy Immunotherapy Injections completed DARIAN BRENNER, RMA [address], [place], [address], [place] [facility] 07/20/2024 10:25:29 07/14/19 25 Allergy Immunotherapy Injections completed DAYRON ALVAREZ RN [address], [place], [address], [place] [facility] 07/13/2024 09:14:57 07/07/19 25 Allergy Immunotherapy Injections completed DAYRON ALVAREZ RN [address] [place] [address], [address], [place] [facility] 07/06/2024 10:11:47 07/01/19 25 Allergy Immunotherapy Injections completed DAYRON ALVAREZ RN [address] [place] [address], [address], [place] [facility] 06/30/2024 13:53:09 06/23/19 25 Allergy Immunotherapy Injections completed DARIAN BRENNER, A [address], [place], [address], [place] [facility] 06/22/2024 11:28:32 06/16/19 25 Allergy Immunotherapy Injections completed DAYRON ALVAREZ RN [address], [place], [address], [place] [facility] 06/15/2024 08:55:06 06/08/19 25 Allergy Immunotherapy Injections completed DARIAN BRENNER, RMA [address], [place], [address], [place] [facility] 06/08/2024 10:36:17 06/01/19 25 Allergy Immunotherapy Injections completed DAYRON ALVAREZ RN [address], [place], [address], [place] [facility] 06/01/2024 09:12:35 05/25/19 25 Allergy Immunotherapy Injections completed ОЛЬГА COOPER [address] [place] [address], [address], [place] [facility] 05/25/2024 09:19:03 05/18/19 25 Allergy Immunotherapy Injections completed ОЛЬГА CHATMAN [address], [place], [address], [place] [facility] 05/18/2024 09:57:41 05/11/19 25 Allergy Immunotherapy Injections completed ОЛЬГА CHATMAN [address] [place] [address], [address], [place] [facility] 05/11/2024 10:31:23 05/04/19 25 Allergy Immunotherapy Injections completed DAYRON ALVAREZ RN 100 [facility],[address] [place] [address], [address], [place] [facility] 05/04/2024 10:17:40 04/27/19 25 Allergy Immunotherapy Injections completed ОЛЬГА COOPER [address] [place] [address], [address], [place] [facility] 04/27/2024 09:49:38 04/20/19 25 Allergy Immunotherapy Injections completed ОЛЬГА CHATMAN [address] [place] [address], [address], [place] [facility] 04/20/2024 12:09:44 04/13/20 24 Allergy Immunotherapy Injections completed DAYRON ALVAREZ RN [address] [place] [address], [address], [place] [facility] 04/13/2024 10:01:46 04/06/20 24 Allergy Immunotherapy Injections completed DAYRON ALVAREZ RN [address] [place] [address], [address], [place] [facility] 04/06/2024 09:57:36 03/30/20 24 Allergy Immunotherapy Injections completed ОЛЬГА COOPER [address], [place], [address], [place] [facility] 03/30/2024 11:23:22 03/23/20 24 Allergy Immunotherapy Injections completed ОЛЬГА CHATMAN [address], [place], [address], [place] [facility] 03/23/2024 11:01:51 03/16/20 24 Allergy Immunotherapy Injections completed DAYRON ALVAREZ RN [address], [place], [address], [place] [facility] 03/16/2024 10:18:10 03/09/20 24 Allergy Immunotherapy Injections completed ОЛЬГА CHATMAN [address], [place], [address], [place] [facility] 03/09/2024 10:08:00 03/02/20 24 Allergy Immunotherapy Injections completed DAYRON ALVAREZ RN [address] [place] [address], [address], [place] [facility] 03/02/2024 10:40:15 02/24/20 24 Allergy Immunotherapy Injections completed ОЛЬГА CHATMAN [address] [place] [address], [address], [place] [facility] 02/24/2024 10:02:16 02/17/20 24 Allergy Immunotherapy Injections completed ОЛЬГА COOPER [address] [place] [address], [address], [place] [facility] 02/17/2024 09:51:14 02/10/20 24 Allergy Immunotherapy Injections completed DAYRON ALVAREZ RN [address], [place], [address], [place] [facility] 02/10/2024 11:06:13 02/03/20 24 Allergy Immunotherapy Injections completed ОЛЬГА COOPER [address], [place], [address], [place] [facility] 02/03/2024 09:51:56 01/27/20 24 Allergy Immunotherapy Injections completed DARIAN KORZEC, RMA [address], [place], [address], [place] [facility] 01/27/2024 10:59:58 01/23/20 24 Cerumen removal with microscope bilateral completed DOMINIC CALVILLO MD [address] [facility], [place], [address], [place] [facility] 01/23/2024 13:19:27 01/23/20 24 Air & Speech Audio with Tymps - 62962, 48056 & 11380 completed MARY ALVARES [address] [facility], [place], [address], [place] [facility] 01/23/2024 12:55:38 01/21/20 24 Allergy Immunotherapy Injections completed DAYRON ALVAREZ RN [address], [address], [place] [facility] 01/21/2024 11:35:49 01/13/20 24 Allergy Immunotherapy Injections completed DARIAN ORTA, RMA [address] [place] [address], [address], [place] [facility] 01/13/2024 10:24:18 01/06/20 24 Allergy Immunotherapy Injections completed DARIAN BRENNER, RMA [address] [place] [address], [address], [place] [facility] 01/06/2024 10:51:00 12/30/19 24 Allergy Immunotherapy Injections completed ОЛЬГА COOPER [address] [place] [address], [address], [place] [facility] 12/30/2023 09:55:01 12/16/19 24 Allergy Immunotherapy Injections completed ОЛЬГА COOPER [address] [place] [address], [address], [place] [facility] 12/16/2023 10:17:29 12/08/19 24 Allergy Immunotherapy Injections completed DAYRON ALVAREZ RN [address] [place] [address], [address], [place] [facility] 12/08/2023 10:45:14 12/02/19 24 Allergy Immunotherapy Injections completed ОЛЬГА COOPER [address], [place], [address], [place] [facility] 12/02/2023 09:31:58 11/25/19 24 Allergy Immunotherapy Injections completed DAYRON ALVAREZ RN [address], [place], [address], [place] [facility] 11/25/2023 11:00:52 11/18/19 24 Allergy Immunotherapy Injections completed ОЛЬГА COOPER [address], [place], [address], [place] [facility] 11/18/2023 09:45:51 11/11/19 24 Allergy Immunotherapy Injections completed DAYRON ALVAREZ RN [address] [place] [address], [address], [place] [facility] 11/11/2023 10:20:54 11/04/19 24 Allergy Immunotherapy Injections completed DAYRON ALVAREZ RN [address] [place] [address], [address], [place] [facility] 11/04/2023 11:15:13 10/28/19 24 Allergy Immunotherapy Injections completed ОЛЬГА CHATMAN [address], [place], [address], [place] [facility] 10/28/2023 08:42:57 10/21/19 24 Allergy Immunotherapy Injections completed ОЛЬГА COOPER [address], [place], [address], [place] [facility] 10/21/2023 12:54:16 10/14/19 24 Allergy Immunotherapy Injections completed ОЛЬГА COOPER [address], [place], [address], [place] [facility] 10/14/2023 10:26:23 10/07/19 24 Allergy Immunotherapy Injections completed ОЛЬГА COOPER [address], [place], [address], [place] - [facility] 10/07/2023 10:05:18 09/30/19 24 Allergy Immunotherapy Injections completed [facility], RMA [address] [place] [address], [address], [facility] - [facility] 09/30/2023 09:57:23 09/23/19 24 [address] [facility], RMA [address], [place], [address], [facility] - [facility] 09/23/2023 10:12:31 09/16/19 24 Allergy Immunotherapy Injections completed [facility] [address], [place], [address], [facility] - [facility] 09/16/2023 13:57:16 09/09/19 24 Allergy Immunotherapy Injections completed SHAKEEL KATZ, A [address] [place] [address], [address], [facility] - [facility] 09/09/2023 09:40:09 09/02/19 24 [address] Immun[address] Injections [address] [facility], RMA [address] [place] [address], [address], [facility] - [facility] 09/02/2023 09:51:09 08/26/19 24 [address]ergy Immun[address] Injections [address] [facility], RMA [address] [place] [address], [address], [facility] - [facility] 08/26/2023 15:58:16 Imaging Results None recorded. Procedure Notes None recorded. Medical Equipment None Reported. Allergies No known drug allergies Medications Name Sig Start Date Stop Date Status Note LastModified by Organization Details LastModified Time Prescript ion - Prior Authoriza tion Request 12/07 completed Script Copy/Tierney or Auth^Scr ipt Copy/Tierney or Auth_[email or web address] [id number] Not Available Not Available Not Available prednison [...] 24 hr 02/14 completed Medicati on ID: [id number] B rand Name: metoprol ol succinat e [...] mg tablet 02/14 completed Medicati on ID: [id number] B rand Name: carvedil ol Send Method: E-Prescr ibed Sub s Allowed: subs OK Medic ationGen ericName : carvedil ol Not Available Not Available Not Available lorazepam 0.5 mg tablet TAKE 1 TABLET BY MOUTH AT BEDTIME NEEDED FOR INSOMNIA OR ANXIETY 12/07 completed Not Available Not Available Not Available tamsulosi n 0.4 mg capsule 04/01 completed Medicati on ID: [id number] B rand Name: tamsulos in Send Method: [...] as needed 2023 active Medicati on ID: [id number] D uration Value: 1 Brand Name: EpiPen 2-Chester Se nd Method: E-Prescr ibed Sub s Allowed: subs OK Medic ationGen ericName : EpiPen 2-Chester Not Available Not Available Not Available Linzess 290 mcg capsule TAKE 1 CAPSULE BY MOUTH EVERY DAY NEEDED active Not Available Not Available No t Available Nasacort 55 mcg nasal spray aerosol 12/07 completed Medicati on ID: [id number] D uration Value: 30 Brand Name: Nasacort [...] ICD10 Code Diagnosis IMO Codes Diagnosis Note [id number] ОЛЬГА COOPER Allergy 100 [facility] it 100 [facility] [place] [address] 01/11/2025 09:35:31 01/11/2025 10:25:43 Perennial allergic rhinitis [id number] J30.89 [id number] DAYRON ALVAREZ RN Allergy 100 [facility],[place] [address] [place] [address] 01/25/2025 10:07:08 01/25/2025 11:41:49 Perennial allergic rhinitis [id number] J30.89 [id number] DARIAN BREANAWILFRID, RMA Allergy 100 [facility],[place] [address] [place] [address] 02/08/2025 09:38:31 02/08/2025 09:58:26 Perennial allergic rhinitis [id number] J30.89 Health Concerns Section Related Observation LastModified by Organization Detai ls LastModified Time None Recorded Concern Status LastModified by Organization Details LastModified Time None Recorded Payers Encounter Date Sequence Insurance Name Policy Number Policy Hussein Covered Member ID Hussein Member ID Guarantor Name 02/08/2025 1 [facility] [facility] (HMO) [facility] Chuck Capellan Jr [id number] Chuck Capellan 02/08/2025 2 [place] [facility] Dina Capellan [id number] Chuck Capellan
== END ==
LOC: HO.CARD 10:30
PROVIDERS: PCP Internal Medicine; Visit Provider Hospitalist
DX: I27.20 Pulmonary hypertension, unspecified (principal)
CPT/HCPCS: 93306

== ENCOUNTER → 2025-02-11 10:33 | Outpatient (BNV) | payer MEDICARE, MEDICAID, SELFPAY | PROVIDERS: PCP Internal Medicine; Visit Provider Internal Medicine | DX: I27.20 Pulmonary hypertension, unspecified (principal) | CPT/HCPCS: 93306 ==